=== PATIENT | male | born 1975 | race Caucasian/White ===

== ENCOUNTER 2020-11-22 13:32 | Emergency (ER) | payer OTHER, MEDICAID, SELFPAY ==
[2020-11-22 13:33] VITALS: BP 133/86; PULSE 66; RESP 16; TEMP 36.5; BMI 31.4
--- NOTE | 2020-11-22 14:02 | EX.ED.GENINJ ---
HPI History of Present Illness Chief Complaint: Laceration Informant: patient Narrative Narrative: Patient presents to the emergency department for injury to right index finger. He states that he got it caught in the garage. He states that it was bleeding heavily and was spraying everywhere. On arrival to the ED bleeding has been controlled. He denies any significant pain with moving all joints of the finger and hand. He is not on any blood thinning medications. Denies any other injury. No loss of sensation to the finger or hand. Patient is not sure when his last tetanus shot was. [facility] Medical History (Updated 11/22/20 @ 14:30 by Katie Leon) Cyst of left kidney Cyst of right kidney Home Medications buspirone 5 mg PO DAILY 04/20/14 [History Last Taken Unknown] citalopram 20 mg PO DAILY 04/20/14 [History Last Taken Unknown] Allergy/AdvReac Type Severity Reaction Status Date / Time No Known Allergies Allergy Verified 11/22/20 13:33 Social History Smoking Status: Never smoker ROS ROS ED Constitutional Constitutional ED: Denies chills or fever(s) ENT ENT ED: Denies rhinorrhea Cardiovascular Cardiovascular: Denies chest pain Respiratory/Chest Respiratory/Chest: Denies cough or dyspnea Gastrointestinal Gastrointestinal: Denies abdominal pain, nausea or vomiting Musculoskeletal Musculoskeletal: Denies back pain or neck pain Integumentary Reports other Details: Laceration Neurologic Neurologic: Denies headache(s) EXAM Physical Exam Const Vital Signs: 11/22/20 13:33 Temperature 97.7 F L Temperature Source Temporal Pulse Rate 66 Respiratory Rate 16 Blood Pressure 133/86 H Blood Pressure Mean 101 Positive well nourished and well developed General Appearance ED: well developed and NAD HEENT Reports normocephalic and head/scalp atraumatic Eyes PERRL and EOMs intact bilaterally Neck supple Resp normal respiratory effort Cardio regular rate and regular rhythm Extremity normal to inspection Extremity Narrative: Full range of motion of hands and digits on the right hand. Brisk capillary refill. General Extremety ED: Negative for edema or tenderness General Extremity: Negative for edema Neuro no sensory deficits noted Sensorium / Orientation: alert Motor Exam: strength 5/5 throughout Psych mental status grossly normal Skin Skin Narrative: Avulsionlaceration injury to right lateral index finger. No foreign body appreciated. No active bleeding. No underlying tendon damage noted. PROC Procedures Lacerations finger: Length: 0.51 in Depth: Skin Shape: Linear Prep: Sterile Conditions and Shure-Clens Laceration repair: Wound explored Irrigated (ml): 50 Number of Sutures/[place]: 2 Suture Information: Ethilon, Simple and 5-0 Comment: Wound well approximated. Patient tolerated well. MDM MDM MDM Narrative Medical decision making narrative: Patient presents to the emergency department for injury to right index finger. Patient has full range of motion. Low concern for fracture. Laceration is requiring repair. He is updated on his tetanus vaccine. Patient's laceration is repaired. He tolerated this well. It was dressed with antibiotic ointment. Return precautions are reviewed with him including evidence of infection. Sutures will need to be removed in 7 to 10 days. Patient understands and is agreeable this plan. Discharged home in stable condition. All questions answered. Discharge Plan Triage Chief Complaint: Laceration ED Provider: Patric aNgy Dx/Rx/DC Orders Clinical Impression: Laceration of finger Instructions: ED Laceration: All Closures Prescriptions: No Action buspirone 5 MG tablet 5 mg PO DAILY RF: 0 citalopram 20 MG tablet 20 mg PO DAILY RF: 0 Primary Care Provider: Justyna Cooley Referrals: Justyna Cooley MD [Primary Care Provider] - 7 Days for suture removal Disposition Disposition: Home, self care Discharge Date/Time: 11/22/20 15:15
[2020-11-22] MEDS: Diphth,Pertuss(Acell),Tet Vac 0.5 ML Vial IM (14:25)
[2020-11-22] MEDS: Lidocaine 1% (20 ml mdv) 20 ML Vial 3 ML INFILT (14:27)
== END 2020-11-22 15:15 | disposition home or self-care (01) ==
LOC: ED 14:23
PROVIDERS: Emergency Provider Emergency Medicine; PCP Internal Medicine
DX: S61.210A Laceration without foreign body of right index finger without damage to nail, initial encounter (principal); X58.XXXA Exposure to other specified factors, initial encounter
CPT/HCPCS: 12001; 90715; 96372; 99282

== ENCOUNTER → 2022-04-11 | Outpatient (CLI) | payer OTHER, MEDICAID, SELFPAY ==
[2022-04-11 11:24] LABS: Absolute Lymphocyte Count 2.16 X10^3/uL (0.83-4.51); Basophil# 0.03 X10^3/uL; Basophil% 0.4 % (0-1); Eosinophil# 0.14 X10^3/uL; Hematocrit 43.9 % (40-54); Hemoglobin 14.7 g/dL (13.0-16.5); Lymphocyte # 2.16 X10^3/ul (0.83-4.51); Lymphocyte % 31.5 % (19-41); Mean Corp Hgb Conc 33.5 g/dL (32-36); Mean Corpuscular Hgb 29.6 pg (27.0-32.0); Mean Corpuscular Volume 88.3 fL (80-94); Mean Platelet Vol. 11.7 fl (6.2-12.0); Monocyte# 0.54 X10^3/uL; Monocyte% 7.9 % (0-10); NRBC Flagged by Analyzer 0 % (0-5); Neutrophil # 3.96 X10^3/uL (2.7-7.7); Neutrophil % 57.8 % (47-70); Platelet Count 236 K/mm3 (150-450); RBC Distribution Width CV 12.7 % (11.6-14.6); RBC Distribution Width SD 41.3 fl (35.1-43.9); Red Blood Count 4.97 M/mm3 (4.6-6.2); White Blood Count 6.9 K/mm3 (4.4-11.0)
[2022-04-11 11:55] LABS: Vitamin D,25 Hydroxy 31.3 ng/mL
[2022-04-11 12:09] LABS: ALB/GLOB Ratio 1.1 RATIO (0.9-2.4); AST(SGOT) 21 U/L (15-37); Alanine Aminotransfer ALT/SGPT 36 U/L (16-61); Albumin, Serum 3.9 g/dL (3.2-5.0); Alkaline Phosphatase 37 U/L (45-117); Anion Gap 5 (5-15); BUN 16 mg/dL (7-18); BUN/Creat Ratio 15.8 RATIO (10-20); Calcium,Total 9.4 mg/dL (8.5-10.1); Chloride 106 mmol/L (98-107); Cholesterol 256 mg/dL (200); Creatinine, Serum 1.01 mg/dL (0.70-1.30); EST Glomerular Filtration Rate 84 mL/min (>60); Est Glom Filt Rate - Afr Amer 101 mL/min (>60); Globulin 3.7 g/dL (2.2-4.2); Glucose 106 mg/dL (74-106); High Density Lipoprotein 51 mg/dL; PSA,Total - Annual Screen 1.05 ng/mL (0.00-4.00); Potassium 4.3 mmol/L (3.5-5.1); Protein, Total 7.6 g/dL (6.4-8.2); Sodium Level 141 mmol/L (136-145); T4 Free Direct 0.72 ng/dL (0.76-1.46); Thyroid Stim Hormone (TSH) 0.59 uIU/mL (0.358-3.74); Triglycerides 352 mg/dL; Very Low Density Lipoprotein 70 mg/dL (5-40)
== END | disposition home or self-care (01) ==
LOC: LAB 10:51
PROVIDERS: PCP Internal Medicine; Referring Provider Internal Medicine; Visit Provider Internal Medicine
DX: N28.1 Cyst of kidney, acquired (principal); E78.5 Hyperlipidemia, unspecified; F32.9 Major depressive disorder, single episode, unspecified; J30.2 Other seasonal allergic rhinitis; F41.9 Anxiety disorder, unspecified
CPT/HCPCS: 84153; 36415; 80053; 80061; 82306; 84439; 84443; 84481; 85025; G0103

== ENCOUNTER → 2022-04-18 | Outpatient (CLI) | payer OTHER, MEDICAID, SELFPAY ==
--- NOTE | 2022-04-18 09:51 | US_ITS ---
EXAM: US RETROPERITONEAL LIMITED, RENAL CLINICAL INDICATION: History renal cysts, enlarging. Serial f/u -- Previous US done US/[facility] -- HX OF KIDNEY STONES TECHNIQUE: Limited grayscale and color Doppler sonographic evaluation of the retroperitoneum was performed. This report was created using [employer] report generation technology. COMPARISON: 09/23/2014. FINDINGS: RIGHT KIDNEY: Possible tiny nonobstructing calcifications right kidney. Tiny cyst measuring 1.4 cm right kidney. There may be 2 tiny nonobstructing calcifications in the right kidney. No shadowing calculus. No perinephric collection is demonstrated. The right kidney measures 11.3 cm in length. LEFT KIDNEY: Cyst measuring 7.2 x 8 x 7.1 cm lower pole left kidney. Previously it measured approximately 8 cm. No hydronephrosis. No shadowing calculus. No perinephric collection is demonstrated. The left kidney measures 12.0 cm in length. OTHER FINDINGS: Prostate is enlarged measuring 5.5 cm. US/Kidney and Bladder IMPRESSION: 1. Stable cyst measuring up to 8 cm left kidney. Tiny cyst right kidney. No follow-up imaging necessary. 2. Possible tiny nonobstructing calcifications right kidney. 3. Prostate is enlarged measuring 5.5 cm. Electronically Signed: Jon Flores MD at 7:23 EST ,
== END | disposition home or self-care (01) ==
LOC: US 09:50
PROVIDERS: PCP Internal Medicine; Referring Provider Internal Medicine; Visit Provider Internal Medicine
DX: N28.1 Cyst of kidney, acquired (principal)
CPT/HCPCS: 76770

== ENCOUNTER → 2022-06-27 | Outpatient (CLI) | payer MEDICAID, SELFPAY ==
--- NOTE | 2022-06-27 15:28 | US_ITS ---
INDICATION: Recent kidney stone EXAMINATION: Ultrasound US Kidney(s) complete (eg, kidneys and bladder) TECHNIQUE: Jones scale and color doppler images were obtained of the kidneys. COMPARISON: April 18, 2022 FINDINGS: RIGHT KIDNEY: 11.2 x 5.8 x 5.5 cm. There is no hydronephrosis. Nonobstructing calculus measuring 6 x 4 x 4 mm. There is a cyst measuring 1.1 x 1.1 x 1 cm LEFT KIDNEY: 11.1 x 5.2 x 6.4 cm. There is no hydronephrosis. There are 2 cysts measuring 1.5 x 1.6 x 1.2 cm and 7.6 x 7.7 x 7.1 cm. URINARY BLADDER: No acute abnormality. US/Kidney and Bladder IMPRESSION: Nonobstructing right renal calculus. Bilateral renal cysts Electronically Signed: Yevgeniy Sullivan MD at 16:34 EST ,
== END | disposition home or self-care (01) ==
LOC: US 15:27
PROVIDERS: PCP Internal Medicine; Visit Provider Internal Medicine
DX: N28.1 Cyst of kidney, acquired (principal); N20.0 Calculus of kidney
CPT/HCPCS: 76770

== ENCOUNTER → 2022-10-10 | Outpatient (CLI) | payer OTHER, SELFPAY ==
[2022-10-10 11:22] LABS: Bacteria 0 SEEN /hpf (None Seen); Mucous, Urine 0 SEEN /hpf (<or=2+); Squamous Epithelial Cells - UA 0 SEEN /hpf (0-5)
[2022-10-10 11:42] LABS: Absolute Lymphocyte Count 2.16 X10^3/uL (0.83-4.51); Absolute Neutrophil Count 4.2 X10^3/uL (2.0-7.7); Basophil# 0.03 X10^3/uL; Basophil% 0.4 % (0-1); Eosinophil# 0.14 X10^3/uL; Hematocrit 44.8 % (40-54); Hemoglobin 14.5 g/dL (13.0-16.5); Lymphocyte # 2.16 X10^3/ul (0.83-4.51); Lymphocyte % 30.7 % (19-41); Mean Corp Hgb Conc 32.4 g/dL (32-36); Mean Corpuscular Hgb 29.1 pg (27.0-32.0); Mean Platelet Vol. 11.6 fl (6.2-12.0); Monocyte# 0.47 X10^3/uL; Monocyte% 6.7 % (0-10); NRBC Flagged by Analyzer 0 % (0-5); Neutrophil % 59.8 % (47-70); Platelet Count 237 K/mm3 (150-450); RBC Distribution Width CV 13.1 % (11.6-14.6); RBC Distribution Width SD 42.8 fl (35.1-43.9); Red Blood Count 4.98 M/mm3 (4.6-6.2)
[2022-10-10 12:12] LABS: Color, Urine Yellow (Yellow); Glucose, Dipstick Normal (Normal); Ketone-Dipstick Negative (Negative); Leukocyte Esterase-Dipstick 25 /ul (Negative); Nitrite-Dipstick Negative (Negative); Occult Blood-Urine 250 /ul (Negative); Protein-Dipstick 15 mg/dl (Negative); Specific Gravity, Urine 1.015 (1.002-1.030); Urine Bilirubin Dipstick Negative (Negative); Urine Clarity Sl. Cloudy (Clear); Urine Urobilinogen Normal (Normal)
[2022-10-10 12:15] LABS: AST(SGOT) 23 U/L (15-37); Alanine Aminotransfer ALT/SGPT 44 U/L (16-61); Albumin, Serum 3.8 g/dL (3.2-5.0); Alkaline Phosphatase 42 U/L (45-117); Anion Gap 8 (5-15); BUN 15 mg/dL (7-18); BUN/Creat Ratio 13.6 RATIO (10-20); Calcium,Total 9.3 mg/dL (8.5-10.1); Chloride 103 mmol/L (98-107); Cholesterol 293 mg/dL (200); EST Glomerular Filtration Rate 76 mL/min (>60); Est Glom Filt Rate - Afr Amer 92 mL/min (>60); Globulin 3.8 g/dL (2.2-4.2); Glucose 108 mg/dL (74-106); High Density Lipoprotein 43 mg/dL; Protein, Total 7.6 g/dL (6.4-8.2); Sodium Level 141 mmol/L (136-145); Triglycerides 670 mg/dL
[2022-10-10 12:18] LABS: Red Blood Cells-Urine 25-50 SEEN /hpf (0-5); White Blood Cells 0-5 SEEN /hpf (0-5)
== END | disposition home or self-care (01) ==
LOC: LAB 11:17
PROVIDERS: PCP Internal Medicine; Referring Provider Internal Medicine; Visit Provider Internal Medicine
DX: R10.31 Right lower quadrant pain (principal); N20.0 Calculus of kidney; E78.5 Hyperlipidemia, unspecified; R79.89 Other specified abnormal findings of blood chemistry
CPT/HCPCS: 36415; 80053; 80061; 81001; 82306; 85025; 87086; 87088

== ENCOUNTER → 2022-10-11 | Outpatient (CLI) | payer OTHER, SELFPAY ==
--- NOTE | 2022-10-11 12:02 | CT_ITS ---
STUDY: CT ABDOMEN AND PELVIS WITH CONTRAST REASON FOR EXAM: Male, 47 years old. Flank pain, RLQ pain, known right kidney stone-pain has been travelling lower. RADIATION DOSAGE (If Supplied By Facility): CTDIvol = ( 17.37 ) mGy, DLP = ( 1024.51 ) mGycm TECHNIQUE: Transaxial images were obtained from the dome of the diaphragm to the symphysis pubis with oral contrast. Oral and amp; IV Gastrografin and amp; 100mL Isovue-300 was administered. Sagittal and coronal images were reconstructed. Individualized dose optimization techniques were used for this CT. COMPARISON: Comparison is made with prior ultrasound of the kidneys dated June 27, 2022. FINDINGS: The visualized lung bases are unremarkable. Mild coronary artery calcification. There is decreased attenuation of the liver consistent with steatosis. There are surgical clips in the gallbladder fossa consistent with a prior cholecystectomy. Normal spleen. Normal pancreas. Normal bilateral adrenal glands. There is a moderate degree of right-sided hydronephrosis and hydroureter due to a 4.5 mm calculus in the distal portion of the right ureter. There is a 1.6 cm cyst in the lateral aspect of the left kidney as well as a 6.7 cm x 7.5 cm cyst in the lower pole region of the left kidney. There is a small hiatal hernia. Normal small intestine. Normal colon. The appendix is visualized and appears normal. There is scattered atherosclerotic calcification of the abdominal aorta, without a demonstrated aneurysm. Normal inferior vena cava. Normal retroperitoneum. Normal urinary bladder. There are prostatic calcifications. There is a small umbilical hernia containing fat. Small left inguinal hernias containing fat. This space narrowing and disc degeneration at the L5-S1 level. CT/Abdomen/Pelvis WITH Contrast IMPRESSION: 4.5 mm calculus in the distal portion of the right ureter causing moderate degree of right hydronephrosis and hydroureter. Left renal cysts. Status post cholecystectomy. Fatty infiltration of the liver. Electronically Signed: Sanya Aguirre MD at 14:28 EDT ,
== END | disposition home or self-care (01) ==
PROVIDERS: PCP Internal Medicine; Referring Provider Internal Medicine; Visit Provider Internal Medicine
DX: R10.31 Right lower quadrant pain (principal)
CPT/HCPCS: 74177; Q9967

== ENCOUNTER → 2023-08-14 | Outpatient (CLI) | payer MEDICAID, SELFPAY ==
--- OUTSIDE RECORDS SUMMARY | 2023-08-14 06:23 | XMS RPT_ITS | CCD ---
Author Name Unknown Address [email or web address] [place] [address] Organization [facility] Care Team Providers Care Grounds Caretaker Name Role Phone Tourlas, Yvon Unavailable Unavailabl e Tourlas, Yvon Unavailable Unavailabl e Amber Chavez Unavailable Unavailable Magda, Yvon Unavailable Unavailabl e Antoni Oh S Unavailable Unavailable Unavailable RYAN HAMLIN Unavaila BILLY Guillermo Primary Care Unavailable Medications Completed/Discontinued Medications Medication Drug Class(es) Dates Sig (Normalized) Sig (Original) betamethasone 0.5 mg/ml / clotrimazole 10 mg/ml topical cream (4 sources) Azole Antifungal, Corticosteroid Start: 03-19-2019 Lotrisone 1-0.05 % External Cream APPLY AND RUB IN A THIN FILM TO AFFECTED AREAS TWICE DAILY.(AM AND PM). Refills: 0 Khoi Mans Start : 19-Mar-2019 Active 15 GM Tube 24 hr buPROPion hydrochloride 300 mg extended release oral tablet (6 sources) Aminoketone Start: 03-19-2019 take 1 tablet by mouth once daily buPROPion HCl ER (XL) 300 MG Oral Tablet Extended Release 24 Hour TAKE 1 TABLET DAILY. Quantity: 90 Refills: 1 Ordered: 19-Feb-2021 Adriano HA, MPH, Antoni Finn Start : 19-Mar-2019 Active docosahexaenoic acid 120 mg / eicosapentaenoic acid 180 mg oral capsule (1 source) Start: 09-02-2019 take 1 capsule by mouth once daily [place]-3 Fish Oil 1000 MG Oral Capsule TAKE 1 CAPSULE Daily Quantity: 0 Refills: 0 Ordered: 02-Sep-2019 DO Start : 02-Sep-2019 Active escitalopram 20 mg oral tablet (6 sources) Serotonin Reuptake Inhibitor Start: 03-19-2019 take 1 tablet by mouth once daily Escitalopram Oxalate 20 MG Oral Tablet TAKE 1 TABLET DAILY. Quantity: 90 Refills: 1 Ordered: 19-Feb-2021 Adriano HA, MPH, Antoni Finn Start : 19-Mar-2019 Active lactobacillus acidophilus [id number] unt oral capsule (1 source) Start: 09-02-2019 Acidophilus Oral Capsule TAKE DIRECTED. Quantity: 0 Refills: 0 Ordered: 02-Sep-2019 DO Start : 02-Sep-2019 Active meloxicam 15 mg oral tablet (6 sources) Nonsteroidal Anti-inflammatory Drug Start: 03-19-2019 take 1 tablet by mouth once daily as needed for pain Meloxicam 15 MG Oral Tablet TAKE 1 TABLET DAILY NEEDED FOR PAIN. TAKE WITH FOOD AND 8 OZ OF WATER. Quantity: 30 Refills: 2 Ordered: 19-Feb-2021 Adriano HA, MPH, Antoni Finn Start : 19-Mar-2019 Active Multiple Vitamins Oral Tablet (1 source) Start: 09-02-2019 take 1 tablet by mouth once daily Multiple Vitamins Oral Tablet TAKE 1 TABLET DAILY. Quantity: 0 Refills: 0 Ordered: 02-Sep-2019 DO Start : 02-Sep-2019 Active Turmeric extract (1 source) Start: 09-02-2019 take 1 capsule by mouth once daily Turmeric 400 MG Oral Capsule TAKE 1 CAPSULE Daily Quantity: 0 Refills: 0 Ordered: 02-Sep-2019 DO Start : 02-Sep-2019 Active vitamin b12 0.5 mg oral tablet (1 source) Vitamin B12 Start: 09-02-2019 Vitamin B12 500 MCG TABS Take 1 tablet daily Quantity: 0 Refills: 0 Ordered: 02-Sep-2019 DO Start : 02-Sep-2019 Active Problems Active Problems Problem Classification Problem Date Documented Date Episodic/Chronic Anxiety disorders (6 sources) Generalized anxiety disorder; Translations: [Generalized anxiety disorder] Chronic Biliary tract disease (10 sources) Biliary calculus; Translations: [Calculus of gallbladder with cholecystitis] Episodic Calculus of urinary tract (6 sources) History of calculus of kidney; Translations: [Personal history of urinary calculi] Episodic Diabetes mellitus without complication (6 sources) Prediabetes; Translations: [Other abnormal glucose] Episodic Disorders of lipid metabolism (12 sources) Hypertriglyceridemia; Translations: [Dyslipidemia] Chronic Fracture of upper limb (1 source) Nondisplaced fracture of distal phalanx of left little finger, initial encounter for open fracture; Translations: [Open nondisplaced fracture of distal phalanx of left little finger, initial encounter] Onset: 03-10-2022 Episodic Genitourinary symptoms and ill-defined conditions (6 sources) Nocturia; Translations: [Nocturia] Episodic Malaise and fatigue (1 source) Fatigue; Translations: [Other malaise and fatigue] Episodic Mood disorders (6 sources) Major depressive disorder; Translations: [Major depressive affective disorder, single episode, unspecified] Chronic Osteoarthritis (1 source) Osteoarthritis of right knee joint; Translations: [Osteoarthrosis, localized, primary, lower leg] Chronic Other diseases of kidney and ureters (6 sources) Acquired complex renal cyst; Translations: [Cyst of kidney, acquired] Episodic Other non-traumatic joint disorders (2 sources) Multiple joint pain; Translations: [Pain in joint, multiple sites] Episodic Other non-traumatic joint disorders (6 sources) Pain in elbow; Translations: [Pain in joint, upper arm] Episodic Other non-traumatic joint disorders (5 sources) Knee pain; Translations: [Acute pain of right knee] Episodic Other non-traumatic joint disorders (1 source) Pain in right knee; Translations: [Acute pain of right knee] Episodic Other nutritional; endocrine; and metabolic disorders (1 source) Excessive thirst; Translations: [Polydipsia] Episodic Other nutritional; endocrine; and metabolic disorders (1 source) Excessive eating - polyphagia; Translations: [Polyphagia] Episodic Other screening for suspected conditions (not mental disorders or infectious disease) (1 source) Patient encounter status; Translations: [Special screening for malignant neoplasms of colon] Episodic Other skin disorders (3 sources) Eruption; Translations: [Rash and other nonspecific skin eruption] Episodic Residual codes; unclassified (6 sources) Chronic back pain ; Translations: [Backache, unspecified] Episodic Residual codes; unclassified (6 sources) Unprotected sexual intercourse; Translations: [High-risk sexual behavior] Episodic Residual codes; unclassified (1 source) Influenza-like symptoms; Translations: [Other general symptoms] Episodic Spondylosis; intervertebral disc disorders; other back problems (6 sources) Lumbar spondylosis; Translations: [Lumbosacral spondylosis without myelopathy] Chronic Past or Other Problems Problem Classification Problem Date Documented Da te Episodic/Chronic Osteoarthritis (5 sources) Osteoarthritis of right knee joint; Translations: [Primary osteoarthritis of right knee] NEGATED: Highlighted row has not occurred!Residual codes; unclassified (6 sources) Disease Episodic Results Test Name Value Interpretation Reference Range Facil ity Vital Signs Date Time Vital Sign Value Performing Clinician Laura rodriguez 03-19-2019 11:49-0400 BMI (Body Mass Index) 32.37 kg/m2 [facility] Work Phone: 03-19-2019 11:49-0400 BSA (Body Surface Area) 2.2 m2 [facility] Work Phone: 03-19-2019 11:49-0400 Height 178 cm [facility] Work Phone: 03-19-2019 11:46-0400 Body weight 102.56 kg [facility] Work Phone: 03-19-2019 11:46-0400 BP Diastolic 70 mm[Hg] Yvon [facility] Work Phone: 03-19-2019 11:46-0400 BP Systolic 118 mm[Hg] Yvon [facility] Work Phone: 03-19-2019 11:46-0400 Pulse (Heart Rate) 63 /min [facility]: Encounters Encounter Date Encounter Type Care Provider Facility Start: 03-10-2022 End: 03-10-2022 Emergency department patient visit RYAN HAMLIN Facility:[facility] Start: 02-19-2021 AUDIT Antoni snowden Work Phone: [facility] Work Phone: Start: 03-25-2019 Patient encounter procedure Amber Chavez [facility] Work Phone: Start: 03-19-2019 Patient encounter procedure Amber Edyekta [facility] Work Phone: Start: 10-01-2018 Patient encounter procedure Facility:[id number] Start: 07-09-2018 Patient encounter procedure Facility:[id number] Start: 01-11-2018 Patient encounter procedure Facility:[id number] Start: 12-12-2017 Patient encounter procedure Facility:[id number] Procedures Date Procedure Procedure Detail Performing Clinician Start: 07-16-2020 Follow-up visit Start: 09-02-2019 Follow-up visit Start: 03-19-2019 Acute hepatitis panel K onstantinos Tourlas Start: 03-19-2019 Antibody hiv-1 Konstant inos Tourlas Start: 03-19-2019 Iadna chlamydia trac homatis amplified probe tq Yvon Tourlas Start: 03-19-2019 MISCELLANEOUS TEST Kons tantinos Tourlas Excision of cyst Konstantino s Tourlas Laparoscopic cholecystectomy Amber Chavez Plan of Treatment Date Care Activity Detail Author Start: 03-08-2021 EPV, Provider: Antoni Oh, Status: Pen, Time: 12:40 PM EPV, Provider: Antoni Oh, Status: Pen, Time: 12:40 PM [facility] Work Phone: Immunizations Immunization Date Immunization Notes Care Provider Melissa awan 11-13-2016 tetanus toxoid, reduced diphtheria toxoid, and acellular pertussis vaccine, adsorbed Yvon Magda [facility] Work Phone: Payers Date Payer Category Payer Unknown [id number] 1975 Unknown [id number] 2.. [id number] 1975 Unknown [id number] 2.. [id number] 1973 Unknown [id number] 2.. [id number] 1973 Unknown [id number] 2. [id number] 1973 Unknown [id number] 2.16. [id number] Unknown [id number] Unknown Social History Date Type Detail Facility No advance directives No advance directiv es [facility] Work Phone: NEGATED: Highlighted row - - [facility] Phone: Functional Status Date Assessment Result Facility NEGATED: Highlighted row Functional performance Functional status health issues are not documented Disease [facility] Phone: Mental Status Date Assessment Result Facility NEGATED: Highlighted row Cognitive function [Interpretation] Cognitive status health issues are not documented Disease [facility] Phone: Summary Purpose Family History No Family History Records Found Mother Name Dates Details Family history of Rheumatoid arteritis(714.2, M05.20) Status:Active Father Name Dates Details Family history of depression (V17.0, Z81.8) Status:Active Family history of kidney sto ne(V18.69, Z84.1) Status:Active Mother Name Dates Details Family history of Rheumatoid arteritis(714.2, M05.20) Status:Active Father Name Dates Details Family history of depression (V17.0, Z81.8) Status:Active Family history of kidney sto ne(V18.69, Z84.1) Status:Active Mother Name Dates Details Family history of Rheumatoid arteritis(714.2, M05.20) Status:Active Father Name Dates Details Family history of depression (V17.0, Z81.8) Status:Active Family history of kidney sto ne(V18.69, Z84.1) Status:Active Mother Name Dates Details Family history of Rheumatoid arteritis(714.2, M05.20) Status:Active Father Name Dates Details Family history of depression (V17.0, Z81.8) Status:Active Family history of kidney sto ne(V18.69, Z84.1) Status:Active Mother Name Dates Details Family history of Rheumatoid arteritis(714.2, M05.20) Status:Active Father Name Dates Details Family history of depression (V17.0, Z81.8) Status:Active Family history of kidney sto ne(V18.69, Z84.1) Status:Active Unknown Family Member Name Dates Details Rheumatoid arteritis: Mother Status:Active Family history of depression : Father(V17.0, Z81.8) Status:Active Family history of kidney sto ne: Father(V18.69, Z84.1) Status:Active Advance Directives No Advanced Directives Records FoundNo Advanced Directives Records FoundNo Advanced Directives Records FoundNo Advanced Directives Records FoundNo Advanced Directives Records Found Additional Source Comments (unrecognized sect ion and content) No Status Records FoundNo Status Records FoundNo Status Records FoundNo Status Records FoundNo Status Records Found INFORMATION SOURCE (unrecogn ized section and content) DATE CREATED AUTHOR AUTHOR'S ORGANIZ ATION 03/16/2019 [facility] DATE CREATED AUTHOR AUTHOR'S ORGANIZ ATION 09/05/2019 [facility] DATE CREATED AUTHOR AUTHOR'S ORGANIZ ATION 07/17/2020 [employer] DATE CREATED AUTHOR AUTHOR'S ORGANIZ ATION 03/14/2022 [facility] FOR RECORDS PERTAINING TO PATIENTS WHO ARE OR HAVE BEEN ENROLLED IN A CHEMICAL DEPENDENCY/SUBSTANCEABUSE PROGRAM, SOME INFORMATION MAY BE OMITTED. This clinical summary was aggregated from multiple sources. Caution should be exercised in using it in the provision of clinical care. This summary normalizes information from multiple sources, and as a consequence, information in this document may materially change the coding, format and clinical context of patient data. In addition, data may be omitted in some cases. CLINICAL DECISIONS SHOULD BE BASED ON THE PRIMARY CLINICAL RECORDS. [facility] [employer] [facility]. provides no warranty or guarantee of the accuracy or completeness of information in this document.
[2023-08-14 08:11] LABS: Absolute Lymphocyte Count 2.32 X10^3/uL (0.83-4.51); Absolute Neutrophil Count 3.7 X10^3/uL (2.0-7.7); Basophil# 0.04 X10^3/uL; Basophil% 0.6 % (0-1); Eosinophil# 0.23 X10^3/uL; Eosinophils% 3.4 % (0-5); Hematocrit 43.2 % (40-54); Lymphocyte # 2.32 X10^3/ul (0.83-4.51); Lymphocyte % 34.2 % (19-41); Mean Corp Hgb Conc 32.4 g/dL (32-36); Mean Corpuscular Hgb 28.7 pg (27.0-32.0); Mean Corpuscular Volume 88.5 fL (80-94); Monocyte% 7.4 % (0-10); NRBC Flagged by Analyzer 0 % (0-5); Neutrophil # 3.68 X10^3/uL (2.7-7.7); Neutrophil % 54.1 % (47-70); Platelet Count 231 K/mm3 (150-450); RBC Distribution Width CV 12.8 % (11.6-14.6); RBC Distribution Width SD 41.6 fl (35.1-43.9); Red Blood Count 4.88 M/mm3 (4.6-6.2); White Blood Count 6.8 K/mm3 (4.4-11.0)
[2023-08-14 08:38] LABS: Insulin 13.8 mU/L (2.6-37.6); Vitamin D,25 Hydroxy 28.5 ng/mL
[2023-08-14 08:49] LABS: AST(SGOT) 28 U/L (15-37); Alanine Aminotransfer ALT/SGPT 47 U/L (16-61); Albumin, Serum 3.7 g/dL (3.2-5.0); Alkaline Phosphatase 41 U/L (45-117); Anion Gap 4 (5-15); BUN 16 mg/dL (7-18); BUN/Creat Ratio 14.5 RATIO (10-20); Calcium,Total 9.5 mg/dL (8.5-10.1); Chloride 107 mmol/L (98-107); Cholesterol 275 mg/dL (200); EST Glomerular Filtration Rate 75 mL/min (>60); Est Glom Filt Rate - Afr Amer 91 mL/min (>60); Free T3 3.3 pg/mL (2.18-3.98); Globulin 3.8 g/dL (2.2-4.2); Glucose 117 mg/dL (74-106); High Density Lipoprotein 44 mg/dL; PSA,Total - Annual Screen 1.23 ng/mL (0.00-4.00); Potassium 3.7 mmol/L (3.5-5.1); Protein, Total 7.5 g/dL (6.4-8.2); Sodium Level 140 mmol/L (136-145); T4 Free Direct 0.78 ng/dL (0.76-1.46); Thyroid Stim Hormone (TSH) 0.85 uIU/mL (0.358-3.74); Triglycerides 495 mg/dL
[2023-08-14 09:43] LABS: Hemoglobin A1c 6.3 % (3.8-5.6)
== END | disposition home or self-care (01) ==
PROVIDERS: PCP Internal Medicine; Referring Provider Internal Medicine; Visit Provider Internal Medicine
DX: E78.5 Hyperlipidemia, unspecified (principal); N20.0 Calculus of kidney; R79.89 Other specified abnormal findings of blood chemistry; R03.0 Elevated blood-pressure reading, without diagnosis of hypertension; Z13.220 Encounter for screening for lipoid disorders; E55.9 Vitamin D deficiency, unspecified; Z12.5 Encounter for screening for malignant neoplasm of prostate
CPT/HCPCS: 84153; 36415; 80053; 80061; 82306; 83036; 83525; 83735; 84439; 84443; 84481; 85025; G0103

== ENCOUNTER → 2024-07-01 | Outpatient (CLI) | payer OTHER, SELFPAY ==
[2024-07-01 12:33] LABS: Absolute Lymphocyte Count 2.71 X10^3/uL (0.83-4.51); Absolute Neutrophil Count 5.4 X10^3/uL (2.0-7.7); Basophil# 0.03 X10^3/uL; Basophil% 0.3 % (0-1); Eosinophil# 0.16 X10^3/uL; Eosinophils% 1.8 % (0-5); Hematocrit 44.6 % (40-54); Lymphocyte # 2.71 X10^3/ul (0.83-4.51); Lymphocyte % 30.5 % (19-41); Mean Corp Hgb Conc 33.6 g/dL (32-36); Mean Corpuscular Hgb 29.4 pg (27.0-32.0); Mean Corpuscular Volume 87.5 fL (80-94); Mean Platelet Vol. 11.8 fl (6.2-12.0); Monocyte# 0.54 X10^3/uL; Monocyte% 6.1 % (0-10); NRBC Flagged by Analyzer 0 % (0-5); Neutrophil # 5.42 X10^3/uL (2.7-7.7); Platelet Count 242 K/mm3 (150-450); RBC Distribution Width CV 12.7 % (11.6-14.6); RBC Distribution Width SD 40.6 fl (35.1-43.9); White Blood Count 8.9 K/mm3 (4.4-11.0)
[2024-07-01 13:12] LABS: AST(SGOT) 27 U/L (15-37); Alanine Aminotransfer ALT/SGPT 53 U/L (16-61); Albumin, Serum 3.8 g/dL (3.2-5.0); Alkaline Phosphatase 45 U/L (45-117); Anion Gap 2 (5-15); BUN 11 mg/dL (7-18); BUN/Creat Ratio 9.9 RATIO (10-20); Calcium,Total 9.2 mg/dL (8.5-10.1); Chloride 104 mmol/L (98-107); Cholesterol 269 mg/dL (200); Creatinine, Serum 1.11 mg/dL (0.70-1.30); EST Glomerular Filtration Rate 74 mL/min (>60); Est Glom Filt Rate - Afr Amer 90 mL/min (>60); Globulin 3.7 g/dL (2.2-4.2); Glucose 107 mg/dL (74-106); High Density Lipoprotein 51 mg/dL; Protein, Total 7.5 g/dL (6.4-8.2); Sodium Level 139 mmol/L (136-145); Triglycerides 553 mg/dL
[2024-07-01 13:50] LABS: Vitamin D,25 Hydroxy 35.5 ng/mL
[2024-07-01 14:07] LABS: Hemoglobin A1c 6.2 % (3.8-5.6)
== END | disposition home or self-care (01) ==
LOC: LAB 12:23
PROVIDERS: PCP Internal Medicine; Referring Provider Internal Medicine; Visit Provider Internal Medicine
DX: R79.89 Other specified abnormal findings of blood chemistry (principal); E78.5 Hyperlipidemia, unspecified; R03.0 Elevated blood-pressure reading, without diagnosis of hypertension; R73.01 Impaired fasting glucose; E55.9 Vitamin D deficiency, unspecified; Z13.220 Encounter for screening for lipoid disorders
CPT/HCPCS: 36415; 80053; 80061; 82306; 83036; 85025

== ENCOUNTER → 2024-12-11 | Outpatient (CLI) | payer OTHER, SELFPAY ==
--- NOTE | 2024-12-11 09:50 | RAD_ITS ---
PROCEDURE: CERV SPINE 2 OR 3 VIEWS 12/11/2024 REASON FOR EXAM: CERVICAL RADICULOPATHY TECHNIQUE: CERV SPINE 2 OR 3 VIEWS COMPARISON: None. FINDINGS: No evidence of acute fracture or dislocation. Mild to moderate discogenic degenerative changes of visualized spine. Normal alignment. RAD/Cerv Spine 2 or 3 Views IMPRESSION: Spondylosis. Disclaimer: Reading Location: [place] [address]
--- NOTE | 2024-12-11 09:50 | RAD_ITS ---
PROCEDURE: CERV SPINE 2 OR 3 VIEWS 12/11/2024 REASON FOR EXAM: CERVICAL RADICULOPATHY TECHNIQUE: CERV SPINE 2 OR 3 VIEWS COMPARISON: None. FINDINGS: No evidence of acute fracture or dislocation. Mild to moderate discogenic degenerative changes of visualized spine. Normal alignment. RAD/Cerv Spine 2 or 3 Views IMPRESSION: Spondylosis. Disclaimer: Reading Location: [place] [address]
== END | disposition home or self-care (01) ==
LOC: RAD 09:43
PROVIDERS: PCP Internal Medicine; Referring Provider Internal Medicine; Visit Provider Internal Medicine
DX: M54.12 Radiculopathy, cervical region (principal)
CPT/HCPCS: 72040

== ENCOUNTER → 2025-01-02 | Outpatient (CLI) | payer OTHER, SELFPAY ==
--- NOTE | 2025-01-02 12:30 | MRI_ITS ---
PROCEDURE: SPINE CERVICAL (ROUTINE) 01/02/2025 REASON FOR EXAM: CERVICAL RADICULOPATHY TECHNIQUE: SPINE CERVICAL (ROUTINE) Multiplanar and multisequence images were obtained without IV contrast administration. COMPARISON: December 11, 2024 FINDINGS: Vertebrae: Cervical vertebral body heights are preserved. Bone marrow signal is unremarkable. Alignment: Straightening. No spondylolisthesis Spinal Cord: Cervical spinal cord is of normal size and signal intensities. Structures at the foramen magnum are unremarkable. C2-3: Minimal facet hypertrophy. C3-4: Minimal disc protrusion and uncinate spurring. Minimal bilateral facet hypertrophy. No central stenosis or exit foraminal narrowing. C4-5: Unremarkable C5-6: Unremarkable C6-7: [id number] disc space narrowing. Diffuse disc protrusion. Partial effacement anterior thecal sac. CSF is seen around the cord. Central stenosis to 8 mm. Bilateral uncinate spurring. Moderate bilateral facet hypertrophy. Bilateral exit foraminal narrowing. C7-T1: Unremarkable MRI/Spine Cervical (Routine) IMPRESSION: 1. Straightening of the normal cervical lordosis. Disc space narrowing C6/7. Central stenosis and exit foraminal narrowing C6/7. Reading Location: [id number]
--- OUTSIDE RECORDS SUMMARY | 2025-01-02 22:15 | XMS RPT_ITS | CCD ---
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 Billy Valadez Primary Care Provider Dr. Blily Valadez Attending Provider Gaurav Medina Attending Provider Unavailable Dr. Billy Valadez Primary Care Provider Dr. Billy Valadez Attending Provider Dr. Billy Valadez Primary Care Provider Dr. Billy Valadez Attending Provider Dr. Billy Valadez MD Primary Care Provider Dr. Billy Valadez MD Referring Provider Josué Stoner Attending Provider Dr. Billy Valadez MD Attending Provider Billy Valadez Primary Care Unavailable Billy Valadez Referring Unavailable Billy Valadez Attending Unavailable Billy Valadez Primary Care Unavailable David Hernandez Attending Unavailable Billy Valadez Attending Unavailable Billy Valadez Primary Care Unavailable Billy Valadez Referring Unavailable Billy Valadez Attending Unavailable Billy Valadez Primary Care Unavailable Billy Valadez Primary Care Unavailable Billy Valadez Attending Unavailable Billy Valadez Primary Care Unavailable Billy Valadez Attending Unavailable Billy Valadez Primary Care Unavailable Billy Valadez Referring Unavailable Josué Stoner Attending Unavailable Billy Valadez Attending Unavailable Billy Valadez Primary Care Unavailable Billy Valadez Attending Unavailable Billy Valadez Primary Care Unavailable Billy Valadez Referring Unavailable Allergies Allergy Classification Reported Allergen(s) Allergy Type Date of Onset Reaction(s) Facility (6 sources) Seasonal Allergies: Uncoded; Translations: [Seasonal Allergies: Uncoded] Allergy to substance 10-10-2022 Other [facility] Comment on above: Nasal congestion and watery eyes Medications Current Medications Medication Drug Class(es) Dates Sig (Normalized) Sig (Original) Ascorbic Acid (5 sources) Vitamin C Start: 10-10-2022 vitamin c Acti ve PO October 09, 2022 11:00pm unsure of dose Start: 10-10-2022 vitamin c Acti ve PO October 10, 2022 12:00am unsure of dose B12 (5 sources) Start: 10-10-2022 B12 Active PO October 09, 2022 11:00pm doesnt know dose Start: 10-10-2022 B12 Active PO October 10, 2022 12:00am doesnt know dose cholecalciferol 0.025 mg oral tablet (8 sources) Vitamin D Start: 04-12-2022 take 1 tablet by mouth once daily Cholecalciferol (Vitamin D3) 25 mcg (1,000 unit) tablet Active 0 PO DAILY April 12, 2022 12:00am 500 units orally daily; cyclobenzaprine hydrochloride 10 mg oral tablet (2 sources) Muscle Relaxant Start: 12-11-2024 take 1 tablet by mouth three times daily as needed for muscle spasms Cyclobenzaprine 10 mg tablet Active 10 mg PO THREE TIMES A DAY as needed for muscle spasm 30 December 11, 2024 12:00am Watch for signs of sedation. Do not operate equipment or drive while using. escitalopram 20 mg oral tablet (20 sources) Serotonin Reuptake Inhibitor Start: 10-25-2024 End: 10-25-2024 take 1 tablet by mouth once daily Escitalopram Oxalate 20 mg tablet Active 20 mg PO DAILY October 25, 2024 11:10am Start: 05-27-2021 End: 07-04-2024 take 1 tablet by mouth once daily Escitalopram Oxalate 20 mg tablet Discontinued 20 mg PO DAILY 90 3 August 03, 2023 4:12pm July 04, 2024 12:37pm Start: 04-15-2021 End: 05-27-2021 take 1 tablet by mouth once daily Escitalopram Oxalate (Lexapro) 5 mg tablet Discontinued 5 mg PO DAILY April 15, 2021 12:00am May 27, 2021 6:20pm Start: 03-19-2019 take 1 tablet by pete th once daily Escitalopram Oxalate 20 MG Oral Tablet TAKE 1 TABLET DAILY. Quantity: 90 Refills: 1 Ordered: 19-Feb-2021 Adriano HA, MPH, Antoni Finn Start : 19-Mar-2019 Active meloxicam 15 mg oral tablet (20 sources) Nonsteroidal Anti-inflammatory Drug Start: 03-10-2021 End: 08-03-2023 take 1 tablet by mouth once daily as needed for pain Meloxicam 15 mg tablet Active 15 mg PO DAILY as needed for Arthritis pain 60 2 August 03, 2023 4:12pm Start: 03-04-2021 End: 03-10-2021 take 1 tablet by mouth once daily Meloxicam 7.5 mg tablet Discontinued 7.5 mg PO DAILY March 04, 2021 12:00am March 10, 2021 3:53pm Start: 03-19-2019 take 1 tablet by pete th once daily as needed for pain Meloxicam 15 MG Oral Tablet TAKE 1 TABLET DAILY NEEDED FOR PAIN. TAKE WITH FOOD AND 8 OZ OF WATER. Quantity: 30 Refills: 2 Ordered: 19-Feb-2021 Adriano HA, MPH, Antoni Finn Start : 19-Mar-2019 Active Multivitamin preparation (3 sources) Start: 10-10-2022 take 1 tablet by mouth once daily Multivitamin Active 1 TABLET PO DAILY October 09, 2022 11:00pm Start: 10-10-2022 take 1 tablet by pete th once daily Multivitamin Active 1 TABLET PO DAILY October 10, 2022 12:00am Multivitamin tablet (2 sources) Start: 10-10-2022 Multivitamin t ablet Active 1 {tbl} PO DAILY October 10, 2022 12:00am predniSONE 10 mg oral tablet (4 sources) Start: 10-07-2024 End: 12-11-2024 take 4 tablets by mouth once daily, then take 3 tablets by mouth once daily, then take 2 tablets by mouth once daily, then take 1 tablet by mouth once daily Prednisone 10 mg tablet Active 10 mg PO DAILY 30 0 December 11, 2024 9:27am 4 tablets daily x3 days, then 3 tablets daily x3 days, then 2 tablets daily x3 days, then 1 tablet daily x3 days tumeric (5 sources) Start: 10-10-2022 tumeric Active PO October 09, 2022 11:00pm doesnt know dose Start: 10-10-2022 tumeric Active PO October 10, 2022 12:00am doesnt know dose Vitamin B Complex (3 sources) Start: 10-10-2022 take 1 tablet by pete th once daily Vitamin B Complex Active 1 TABLET PO DAILY October 09, 2022 11:00pm Start: 10-10-2022 take 1 tablet by mouth once da tahir Vitamin B Complex Active 1 TABLET PO DAILY October 10, 2022 12:00am Vitamin B Complex tablet (2 sources) Start: 10-10-2022 Vitamin B Comp alley tablet Active 1 {tbl} PO DAILY October 10, 2022 12:00am Zinc (5 sources) Start: 10-10-2022 zinc Active PO October 09, 2022 11:00pm doesnt know dose Start: 10-10-2022 zinc Active PO October 10, 2022 12:00am doesnt know dose Completed/Discontinued Medications Medication Drug Class(es) Dates Sig (Normalized) Sig (Original) betamethasone 0.5 mg/ml / clotrimazole 10 mg/ml topical cream (4 sources) Azole Antifungal, Corticosteroid Start: 03-19-2019 Lotrisone 1-0.05 % External Cream APPLY AND RUB IN A THIN FILM TO AFFECTED AREAS TWICE DAILY.(AM AND PM). Refills: 0 Yvon Man Start : 19-Mar-2019 Active 15 GM Tube 24 hr buPROPion hydrochloride 300 mg extended release oral tablet (20 sources) Aminoketone Start: 01-08-2024 End: 10-25-2024 take 1 tablet by mouth once daily in the morning Bupropion Hcl (Wellbutrin Xl) 300 mg tablet extended release 24 hr Discontinued 300 mg PO EVERY MORNING 90 1 January 08, 2024 12:00am October 25, 2024 9:43am Start: 03-04-2021 End: 04-11-2022 take 1 tablet by mouth once daily in the morning Bupropion Hcl (Wellbutrin Xl) 300 mg tablet extended release 24 hr Discontinued 300 mg PO EVERY MORNING 30 0 March 10, 2022 9:53am April 11, 2022 9:52am Start: 03-19-2019 take 1 tablet by pete th once daily buPROPion HCl ER (XL) 300 MG Oral Tablet Extended Release 24 Hour TAKE 1 TABLET DAILY. Quantity: 90 Refills: 1 Ordered: 19-Feb-2021 Adriano HA, MPH, Antoni Finn Start : 19-Mar-2019 Active busPIRone hydrochloride 5 mg oral tablet (8 sources) Start: 04-20-2014 End: 03-04-2021 take 1 tablet by mouth once daily Buspirone 5 MG tablet Discontinued 5 mg PO DAILY April 20, 2014 1:00am March 04, 2021 10:17am ciprofloxacin 500 mg oral tablet (5 sources) Quinolone Antimicrobial Start: 10-10-2022 End: 10-20-2022 take 1 tablet by mouth twice daily Ciprofloxacin Hcl (Cipro) 500 mg tablet Discontinued 500 mg PO TWICE A DAY 20 October 10, 2022 12:00am October 19, 2022 12:00am October 20, 2022 12:05am citalopram 20 mg oral tablet (8 sources) Serotonin Reuptake Inhibitor Start: 04-20-2014 End: 04-15-2021 take 1 tablet by mouth once daily Citalopram 20 MG tablet Discontinued 20 mg PO DAILY April 20, 2014 1:00am April 15, 2021 5:48pm docosahexaenoic acid 120 mg / eicosapentaenoic acid 180 mg oral capsule (1 source) Start: 09-02-2019 take 1 capsule by mouth once daily [place]-3 Fish Oil 1000 MG Oral Capsule TAKE 1 CAPSULE Daily Quantity: 0 Refills: 0 Ordered: 02-Sep-2019 DO Start : 02-Sep-2019 Active fluconazole 100 mg oral tablet (8 sources) Azole Antifungal Start: 04-05-2021 End: 04-10-2021 take 1 tablet by mouth once daily Fluconazole (Diflucan) 100 mg tablet Discontinued 100 mg PO DAILY 5 5 0 April 05, 2021 12:00am April 09, 2021 12:00am April 10, 2021 12:01am fluticasone propionate 0.05 mg/actuat metered dose nasal spray (14 sources) Corticosteroid Start: 06-23-2022 End: 07-04-2024 take 50 ug nasal route once daily Fluticasone Propionate (Flonase Allergy Relief) 50 mcg/actuation spray,suspension Discontinued 1 NMA INTRANASAL DAILY 27 06August 03, 2023 4:12pm July 04, 2024 12:54pm administer into each nostril Start: 06-23-2022 End: 08-03-2023 take 1 spray(s) nasal route once daily Fluticasone Propionate (Flonase Allergy Relief) 50 mcg/actuation spray,suspension Active 1 SPRAY INTRANASAL DAILY August 03, 2023 3:12pm administer into each nostril lactobacillus acidophilus [id number] unt oral capsule (1 source) Start: 09-02-2019 Acidophilus Or al Capsule TAKE DIRECTED. Quantity: 0 Refills: 0 Ordered: 02-Sep-2019 DO Start : 02-Sep-2019 Active Multiple Vitamins Oral Tablet (1 source) Start: 09-02-2019 take 1 tablet by mouth once daily Multiple Vitamins Oral Tablet TAKE 1 TABLET DAILY. Quantity: 0 Refills: 0 Ordered: 02-Sep-2019 DO Start : 02-Sep-2019 Active Niacin (5 sources) Nicotinic Acid Start: 10-10-2022 End: 12-11-2024 niacin Discontinued PO October 10, 2022 12:00am December 11, 2024 8:58am doesnt know dose Start: 10-10-2022 niacin Active PO October 09, 2022 11:00pm doesnt know dose Start: 10-10-2022 niacin Active PO October 10, 2022 12:00am doesnt know dose tamsulosin hydrochloride 0.4 mg oral capsule (10 sources) alpha-Adrenergic Krystin Start: 10-12-2022 End: 08-03-2023 take 1 capsule by mouth twice daily Tamsulosin 0.4 mg capsule Discontinued 0.4 mg PO TWICE A DAY 20 0 October 12, 2022 1:06pm August 03, 2023 3:09pm Turmeric extract (1 source) Start: 09-02-2019 take [...] Problem Classification Problem Date Documented Date Episodic/Chronic Abdominal pain (14 sources) Right lower quadrant pain; Translations: [Right lower quadrant pain] 10-10-2022 Episodic Anxiety disorders (17 sources) Generalized anxiety disorder; Translations: [Generalized anxiety disorder] Chronic Biliary tract disease (18 sources) Biliary calculus; Translations: [Calculus of gallbladder with cholecystitis] 03-04-2021 Episodic Calculus of urinary tract (20 sources) History of calculus of kidney; Translations: [Personal history of urinary calculi] 03-04-2021 Episodic Diabetes mellitus without complication (8 sources) Prediabetes; Translations: [Other abnormal glucose] 06-28-2024 Episodic Disorders of lipid metabolism (20 sources) Hypertriglyceridemia; Translations: [Dyslipidemia] Chronic Fracture of upper limb (1 source) Nondisplaced fracture of distal phalanx of left little finger, initial encounter for open fracture; Translations: [Open nondisplaced fracture of distal phalanx of left little finger, initial encounter] Onset: 03-10-2022 Episodic Genitourinary symptoms and ill-defined conditions (6 sources) Nocturia; Translations: [Nocturia] Episodic Malaise and fatigue (9 sources) Fatigue; Translations: [Other malaise and fatigue] 04-15-2021 Episodic Mood disorders (17 sources) Major depressive disorder; Translations: [Major depressive affective disorder, single episode, unspecified] Chronic Open wounds of extremities (8 sources) Laceration of finger; Translations: [Laceration without foreign body of unspecified finger without damage to nail, initial encounter] 11-22-2020 Episodic Osteoarthritis (9 sources) Osteoarthritis of right knee joint; Translations: [Osteoarthrosis, localized, primary, lower leg] 03-04-2021 Chronic Other circulatory disease (3 sources) Elevated blood pressure; Translations: [Elevated blood-pressure reading, without diagnosis of hypertension] 08-03-2023 Episodic Other circulatory disease (1 source) Elevated blood-pressure reading, without diagnosis of hypertension; Translations: [Elevated blood pressure reading without diagnosis of hypertension] 08-03-2023 Episodic Other diseases of kidney and ureters (6 sources) Acquired complex renal cyst; Translations: [Cyst of kidney, acquired] Episodic Other diseases of kidney and ureters (16 sources) Cyst of kidney; Translations: [Cyst of kidney, acquired] 03-10-2021 Episodic Other diseases of kidney and ureters (6 sources) Cyst of kidney, acquired; Translations: [Cystic kidney disease, unspecified] Episodic Other non-traumatic joint disorders (2 sources) [...] eating - polyphagia; Translations: [Polyphagia] Episodic Other skin disorders (3 sources) Eruption; Translations: [Rash and other nonspecific skin eruption] Episodic Other upper respiratory disease (8 sources) Seasonal allergy; Translations: [Other seasonal allergic rhinitis] 03-04-2021 Chronic Other upper respiratory infections (9 sources) Nasal discharge; Translations: [Postnasal drip] 06-23-2022 Episodic Residual codes; unclassified (6 sources) Chronic back pain ; Translations: [Backache, unspecified] Episodic Residual codes; unclassified (6 sources) Unprotected sexual intercourse; Translations: [High-risk sexual behavior] Episodic Residual codes; unclassified (1 source) Influenza-like symptoms; Translations: [Other general symptoms] Episodic Residual codes; unclassified (8 sources) History of hernia repair; Translations: [Other specified postprocedural states] 03-10-2021 Episodic Spondylosis; intervertebral disc disorders; other back problems (6 sources) Lumbar spondylosis; Translations: [Lumbosacral spondylosis without myelopathy] Chronic Spondylosis; intervertebral disc disorders; other back problems (7 sources) Cervical radiculopathy; Translations: [Radiculopathy, cervical region] Onset: 12-18-2024 10-07-2024 Episodic Sprains and strains (2 sources) Rupture of gastrocnemius tendon; Translations: [Strain of other muscle(s) and tendon(s) of posterior muscle group at lower leg level, unspecified leg, initial encounter] 07-04-2024 Episodic Past or Other Problems Problem Classification Problem Date Documented Date Episodic/Chronic Osteoarthritis (5 sources) Osteoarthritis of right knee joint; Translations: [Primary osteoarthritis of right knee] Other screening for suspected conditions (not mental disorders or infectious disease) (20 sources) Patient encounter status; Translations: [Special screening for malignant neoplasms of colon] Onset: 07-04-2024 04-15-2021 Episodic NEGATED: Highlighted row has not occurred!Residual codes; unclassified (6 sources) Disease Episodic Results Test Name Value Interpretation Reference Range Facility Cerv Spine 2 or 3 Viewson Cerv Spine 2 or 3 Views [facility] Imaging Services [address] [place] [id number] Cerv Spine 2 or 3 Views MR#: [id number] Acct: [id number] Name: ALLI HOLLAND Rep #: [id number] : 1975 M 49 From: Elsi Jensen MD PCP: Dr. Billy Valadez MD Status: REG CLI Study: Cerv Spine 2 or 3 Views Date of Exam: 12/11/24 Exam# [id number] Ordering Dr: Billy Valadez MD PROCEDURE: CERV SPINE 2 OR 3 VIEWS 12/11/2024 REASON FOR EXAM: CERVICAL RADICULOPATHY TECHNIQUE: CERV SPINE 2 OR 3 VIEWS COMPARISON: None. FINDINGS: No evidence of acute fracture or dislocation. Mild to moderate discogenic degenerative changes of visualized spine. Normal alignment. RAD/Cerv Spine 2 or 3 Views IMPRESSION: Spondylosis. Disclaimer: Reading Location: [id number] CC: Dr. Billy Valadez MD Therapy Administrative Assistant: Signed [facility] MR/BMS.IMBon 12-11-2024 MR/BMS.IMB [facility] [address] [place] [address] OFFICE VISIT Date of Service: 12/11/24 MR#: [id number] Acct: [id number] Name: ALLI HOLLAND Rep #: [id number] : 1975 Provider: Dr. 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: No Accompanied by: Self Is patient in pain?: Yes (Neck pain ) Pain scale (1-10): 6 Allergies Seasonal Allergies: Uncoded Allergy (Intermediate, Verified 12/11/24 08:53) Other Medications ???Medication ???Instructions ???Recorded ???Confirmed ???Type cholecalciferol (vitamin D3) 25 See Rx Instructions PO DAILY 04/1212/11/24 History mcg (1,000 unit) tablet B12 PO 10/10/22 12/11/24 History multivitamin 1 tab PO DAILY 10/10/22 12/11/24 H istory tumeric PO 10/10/22 12/11/24 History vitamin B complex 1 tab PO DAILY 10/10/22 12/11/24 H istory vitamin c PO 10/10/22 12/11/24 History zinc PO 10/10/22 12/11/24 History meloxicam 15 mg tablet 15 mg PO DAILY PRN Arthritis pain 08/03/23 12/11/24 Rx #60 tabs fluticasone propionate 50 1 spray intranasal DAILY #16 grams 01/23/25 07/02/25 Rx mcg/actuation nasal spray,suspension (Flonase Allergy Relief) escitalopram oxalate 20 mg tablet 20 mg PO DAILY #90 tabs 10/25/24 12/11/24 Rx cyclobenzaprine 10 mg tablet 10 mg PO TID PRN muscle spasm #30 12/11/24 12/11/24 Rx tabs prednisone 10 mg tablet 10 mg PO DAILY #30 tabs 12/11/24 0 12/11/24 Rx PFSH Medical History Cervical radiculopathy Gastrocnemius tear Elevated fasting blood sugar Encounter for screening for COVID-19 Anxiety Arthritis Gallstones Kidney stones Hyperlipemia Seasonal allergies Depression Cyst of right kidney Cyst of left kidney Surgical History Hx of removal of cyst History of cholecystectomy History of hernia repair Family History Other Anxiety with depression Arthritis Social History Smoking Status: Never smoker Tobacco: How many years used: 10 alcohol intake: never substance use type: does not use what 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 49-year-old gentleman who generally speaking is been pretty healthy. He takes low-dose of Lexapro, vitamin D. He started back in September with tingling numbness sensation in the right forearm across the dorsum of the forearm out to the fingers, predominantly digits 2 and 3 initially. He woke up with it [address] After a period of time, he did go to [facility] and was diagnosed with cervical radiculopathy. He was prescribed a course of prednisone which at the time he felt did not do a whole lot and certainly did not resolve. It has been basically staying the same over the last several months until he woke up this morning with severe pain described in those same areas, in the dorsum of the forearm, out into the hand, more the thumb, 2nd and 3rd digits is to where he feels a lot of more intense, also the inner aspect of the upper arm, and the right side of the neck. No acute trauma to the neck. Has not had similar problem in the past although he did have an episode of sciatica in the past where it was felt related to L4-L5 disc disease he believes remotely. That has been stable. In any event, he has not had a rash in the neck or arm recently. No fever or chills. No other new acute issues. Review of systems per chart. Physical exam. Vital signs on chart. My exam is limited and focused. Deep tendon reflexes, 2/4 and symmetric at the bicep, tricep, brachial. No tenderness or reproducible discomfort in the arm itself. Normal vascular inflow into the arm and hand. Skin is warm and dry. No obvious rashes. Spurling test is clearly positive, with rotation to the right, tilt increasing the discomfort significantly. With chin tuck, and gentle neck traction, pain was largely relieved. There is tenderness, along the paraspinal muscles that rep (more content not included)... Normal [facility] Urgent Care Visit Reporton 0 10-07-2024 Urgent Care Visit Report [facility] [address], [address] [place] [address] OFFICE VISIT Date of Service: 10/07/24 MR#: [id number] Acct: [id number] Name: ALLI HOLLAND Rep #: [id number] : 1975 Provider: ODALIS Wagoner Age/Sex: 49/M Location: [facility] Status: Signed Intake Vital Signs 07/04/24 11:40 10/07/24 17:41 Height 5 ft 10 in 5 ft 10 in Weight: 245 lb 6 oz 230 lb BMI 35.2 33.0 BP 133/84 H 114/82 H Blood Pressure Location Lt brachial Lt brachial Position Sitting Sitting Respiration 16 14 Pulse 70 64 Pulse Source Monitor Auscultation Temp 98.4 F 98.0 F Temp Source Temporal Oral Pulse Oximetry (%) 94 Oxygen Delivery Method room air Intake Visit Reasons: WHOLE R ARM AND HAND NUMBNESS AND TINGLING Chief Complaint: L ankle pain Allergies Seasonal Allergies: Uncoded Allergy (Intermediate, Verified 07/04/24 11:34) Other [facility] Medical History (Updated 10/07/24 @ 17:47 by Josué JACOBO, PA) Cervical radiculopathy Gastrocnemius tear Elevated fasting blood sugar Encounter for screening for COVID-19 Anxiety Arthritis Gallstones Kidney stones Hyperlipemia Seasonal allergies Depression Cyst of right kidney Cyst of left kidney Surgical History Hx of removal of cyst History of cholecystectomy History of hernia repair Family History Other Anxiety with depression Arthritis Social History Smoking Status: Never smoker Tobacco: How many years used: 10 alcohol intake: never substance use type: does not use what 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 He notes no history of cervical trauma or bilateral shoulder/elbow/wrist /hand trauma. PMH NC. He is taking no [id number] products to assist with current symptoms. He notes no other associated symptoms and no other alleviating/aggravat ing factors. ROS Const Constitutional: No other (As above) Exam Const General: cooperative, healthy appearing and no acute distress Nutritional Appearance: average body habitus Orientation: alert and awake [facility] Head: normal to inspection Ears: hearing grossly normal bilaterally and external ears normal Nose: external nose normal Neck Neck: normal visual inspection, full ROM, no meningeal signs and supple Chest Chest palpation inspection: normal inspection of the chest Resp Effort Inspection: normal respiratory effort and able to speak in complete sentences Cardio Rate: regular rate Pulses: radial pulses present Musc Cervical Spine: cervical ROM normal and cervical muscular tenderness (R>L, w/ RMF paresthesias reproducible to palpation); No cervical spinal tenderness Skin General: no rashes or lesions noted Neuro General: patient alert and patient awake Cognition: normal cognition Speech: speech normal Extrem Other: RUE: Negative Phalen's at right wrist and right elbow, negative Tinel's right wrist, and unguarded FAROM right shoulder/elbow/wrist /digits x 5 Psych Appearance: grossly normal Mental Status: mental status grossly normal Mood: congruent mood Affect: normal affect Speech and Movement: speech and movement normal Attitude: cooperative Coding Level of Care Code Off vis,new,level 3 Diagnoses Cervical radiculopathy M54.12 Assessment and Plan Assessment and Plan (1) Cervical radiculopathy: Status: Acute Plan: Radiology department close at time of patient evaluation. Prednisone is prescribed today. Supportive measures including rest, home range of motion exercises as instructed today, as well as ergonomic recommendations in preventing chronic cervical flexion. Follow-up with PCP or orthospine in 5 to 7 days should symptoms not improve, sooner should symptoms only worsen or any other concerns develop. Patient states acknowledging understanding all the above. This note was generated with [employer] dictation software. It may contain incorrect words, spelling, and punctuation that were not noted in checking the note before signing. Medications: New prednisone 4 tablets daily x3 days, then 3 tablets daily x3 days, then 2 tablets daily x3 days, then 1 tablet daily x3 days 10 mg PO DAILY 3 (more content not included)... Normal [facility] MR/BMS.Bon 07-04-2024 MR/BMS.IMB [facility] [address] [place] [address] OFFICE VISIT Date of Service: 07/04/24 MR#: [id number] Acct: [id number] Name: ALLI HOLLAND Rep #: [id number] : 1975 Provider: Dr. Billy magallanes MD Age/Sex: 48/M Location: [facility] Status: Signed Intake Vital Signs 08/03/23 14:07 07/04/24 11:40 Height 5 ft 10 in 5 ft 10 in Weight: 250 lb 2 oz 245 lb 6 oz BMI 35.9 35.2 BP 123/79 H 133/84 H Blood Pressure Location Lt brachial Lt brachial Position Sitting Sitting Respiration 16 16 Pulse 87 70 Pulse Source Monitor Monitor Temp 98 F 98.4 F Temp Source Temporal Temporal Pulse Oximetry (%) 94 94 Oxygen Delivery Method room air room air Intake Visit Reasons: Lt Ankle Pain Chief Complaint: L ankle pain [employer] Required: No Accompanied by: Self Is patient in pain?: Yes (L calf) Pain scale (1-10): 1 Allergies Seasonal Allergies: Uncoded Allergy (Intermediate, Verified 07/04/24 11:34) Other Medications ???Medication ???Instructions ???Recorded ???Confirmed ???Type cholecalciferol (vitamin D3) 25 See Rx Instructions PO DAILY 04/12/22 07/04/24 History mcg (1,000 unit) tablet B12 PO 10/10/22 07/04/24 History multivitamin 1 tab PO DAILY 10/10/22 07/04/24 History niacin PO 10/10/22 07/04/24 History tumeric PO 10/10/22 07/04/24 History vitamin B complex 1 tab PO DAILY 10/10/22 07/04/24 History vitamin c PO 10/10/22 07/04/24 History zinc PO 10/10/22 07/04/24 History meloxicam 15 mg tablet 15 mg PO DAILY PRN Arthritis pain 08/03/23 07/04/24 Rx #60 tabs bupropion HCl 300 mg 24 hr tablet, 300 mg PO QAM #90 tabs 01/08/24 07/04/24 Rx extended release (Wellbutrin XL) fluticasone propionate 50 1 spray intranasal DAILY #16 grams 07/04/24 07/04/24 Rx mcg/actuation nasal spray,suspension (Flonase Allergy Relief) [facility] Medical History (Updated 07/04/24 @ 12:[address] 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 Patient has a history of elevated blood sugar, elevated blood pressure readings. He likely has underlying insulin resistance to a fair degree. He is at elevated triglycerides and borderline A1c. Had recent labs done. He does report an acute issue and wanted that evaluated to. That is left calf discomfort. Started yesterday. He was walking, not doing anything particular when he felt a sharp pain, in the medial aspect of the mid belly area of the gastroc. He notes certain motions seem to aggravate it a little bit. Not severe. Has a little bit of a "gimp" he states. This morning when walking out to the truck, and twisting he had a sharp pain once again. Aside from that he reports that he has been doing somewhat better in terms of diet. He is single, however his current girlfriend is vegetarian she does a lot of cooking and he has been getting more fresh fruits and vegetables as well in the diet but still a fair amount of carbohydrates. He has not had colonoscopy to this point. We ordered that last year however he wanted to wait until his insurance change at the end of this year. He is now with a new insurance and he is prepared to do colonoscopy. I have updated the order in the chart to reflect this. He is referred to the hospital for screening colonoscopy. Review of systems per chart. Physical exam. Vital signs on chart. PERRLA. Sclera are clear. TMs are unremarkable with normal light reflexes. Canals are unremarkable. Posterior pharynx is unremarkable. Good dentition. No cervical or supraclavicular lymph nodes enlarged or tender. No clear thyromegaly. No thyroid nodules readily palpable. Lungs are without wheeze, rhonchi, rales. No E/A changes are heard. Heart is regular. Not tachycardic. No clear murmur, rub, or gallop is identified. The abdomen is soft. Bowel sounds are present. Nontender nondistended abdomen. No significant leg edema. Cranial nerve examination 2 through 12 are grossl (more content not included)... Normal [facility] CBC W/Diff, Automatedon 01-2 0-2024 Absolute Lymph 2.71 X10 3/uL Normal 0.83-4.51 [facility] Comment on above: Performed By: #### L 500.4100, L500.4050, L506.1000, L501.9985, L100.0100 #### [facility] [address] [place], [address] Absolute Neut 5.4 X10 3/uL Normal 2.0-7.7 [facility] Comment on above: Performed By: #### L 500.4100, L500.4050, L506.1000, L501.9985, L100.0100 #### [facility] [address] [place], [address] Basophils/100 WBC (Bld) 0.3 % Normal 0-1 [facility] Comment on above: Performed By: #### L 500.4100, L500.4050, L506.1000, L501.9985, L100.0100 #### [facility] [address] [place], [address] Eosinophils/100 WBC (Bld) 1.8 % Normal 0-5 [facility] Comment on above: Performed By: #### L 500.4100, L500.4050, L506.1000, L501.9985, L100.0100 #### [facility] [address] [place], [address] Erythrocyte distribution width (RBC) [Ratio] 12.7 % Normal 11.6-14.6 [facility] Comment on above: Performed By: #### L 500.4100, L500.4050, L506.1000, L501.9985, L100.0100 #### [facility] [address] [place], [address] Hematocrit (Bld) [Volume fraction] 44.6 % Normal 40-54 [facility] Comment on above: Performed By: #### L 500.4100, L500.4050, L506.1000, L501.9985, L100.0100 #### [facility] [address] [place], [address] Hemoglobin (Bld) [Mass/Vol] 15.0 g/dL Normal 13.0-16.5 [facility] Comment on above: Performed By: #### L 500.4100, L500.4050, L506.1000, L501.9985, L100.0100 #### [facility] [address] [place], [address] IG% 0.300 Normal 0.0-0.9 [facility] Comment on above: Result Comment: IG% - Immature Granulocytes (promyelocytes, myelocytes and metamyelocytes) > 1% indicates that a LEFT SHIFT is Present. Performed By: #### L 500.4100, L500.4050, L506.1000, L501.9985, L100.0100 #### [facility] [address] [place], [address] Lymphocytes/100 WBC (Bld) 30.5 % Normal 19-41 [facility] Comment on above: Performed By: #### L 500.4100, L500.4050, L506.1000, L501.9985, L100.0100 #### [facility] [address] [place], [address] MCH (RBC) [Entitic mass] 29.4 pg Normal 27.0-32.0 [facility] Comment on above: Performed By: #### L 500.4100, L500.4050, L506.1000, L501.9985, L100.0100 #### [facility] [address] [place], [address] MCHC (RBC) [Mass/Vol] 33.6 g/dL Normal 32-36 [facility] Comment on above: Performed By: #### L 500.4100, L500.4050, L506.1000, L501.9985, L100.0100 #### [facility] [address] [place], [address] MCV (RBC) [Entitic vol] 87.5 fL Normal 80-94 [facility] Comment on above: Performed By: #### L 500.4100, L500.4050, L506.1000, L501.9985, L100.0100 #### [facility] [address] [place], [address] Monocytes/100 WBC (Bld) 6.1 % Normal 0-10 [facility] Comment on above: Performed By: #### L 500.4100, L500.4050, L506.1000, L501.9985, L100.0100 #### [facility] [address] [place], [address] Neutrophils/100 WBC (Bld) 61.0 % Normal 47-70 [facility] Comment on above: Performed By: #### L 500.4100, L500.4050, L506.1000, L501.9985, L100.0100 #### [facility] [address] [place], [address] Nucleated RBC (Bld) [#/Vol] 0 10*3/uL Normal 0-5 [facility] Comment on above: Performed By: #### L 500.4100, L500.4050, L506.1000, L501.9985, L100.0100 #### [facility] [address] [place], [address] Platelet mean volume (Bld) [Entitic vol] 11.8 fL Normal 6.2-12.0 [facility] Comment on above: Performed By: #### L 500.4100, L500.4050, L506.1000, L501.9985, L100.0100 #### [facility] [address] [place], [address] Platelets (Bld) [#/Vol] 242 10*3/uL Normal 150-450 [facility] Comment on above: Performed By: #### L 500.4100, L500.4050, L506.1000, L501.9985, L100.0100 #### [facility] [address] [place], [address] RBC (Bld) [#/Vol] 5.10 10*6/uL Normal 4.6-6.2 [facility] Comment on above: Performed By: #### L 500.4100, L500.4050, L506.1000, L501.9985, L100.0100 #### [facility] [address] [place], [address] RDW SD 40.6 fl Normal 35.1-43.9 [facility] Comment on above: Performed By: #### L 500.4100, L500.4050, L506.1000, L501.9985, L100.0100 #### [facility] [address] [place], [address] WBC (Bld) [#/Vol] 8.9 10*3/uL Normal 4.4-11.0 [facility] Comment on above: Performed By: #### L 500.4100, L500.4050, L506.1000, L501.9985, L100.0100 #### [facility] [address] [place], [address] Comprehensive Metabolic Prof [facility] 07-01-2024 Albumin [Mass/Vol] 3.8 g/dL Normal 3.2-5.0 [facility] Comment on above: Performed By: #### L 500.4100, L500.4050, L506.1000, L501.9985, L100.0100 #### [facility] [address] [place], [address] Albumin/Globulin [Mass ratio] 1.0 {ratio} Normal 0.9-2.4 [facility] Comment on above: Performed By: #### L 500.4100, L500.4050, L506.1000, L501.9985, L100.0100 #### [facility] [address] [place], [address] ALK P 45 U/L Normal 45-117 [facility] Comment on above: Performed By: #### L 500.4100, L500.4050, L506.1000, L501.9985, L100.0100 #### [facility] [address] [place], [address] ALT [Catalytic activity/Vol] 53 U/L Normal 16-61 [facility] Comment on above: Performed By: #### L 500.4100, L500.4050, L506.1000, L501.9985, L100.0100 #### [facility] [address] [place], [address] AST [Catalytic activity/Vol] 27 U/L Normal 15-37 [facility] Comment on above: Performed By: #### L 500.4100, L500.4050, L506.1000, L501.9985, L100.0100 #### [facility] [address] [place], [address] Bilirubin [Mass/Vol] 0.30 mg/dL Normal 0.20-1.00 [facility] Comment on above: Result Comment: For patients on eltrombopag therapy, use of Dimension [place] TBIL is not recommended. Performed By: #### L 500.4100, L500.4050, L506.1000, L501.9985, L100.0100 #### [facility] [address] [place], [address] BUN/CRE 9.9 RATIO Low 10-20 [facility] Comment on above: Performed By: #### L 500.4100, L500.4050, L506.1000, L501.9985, L100.0100 #### [facility] [address] [place], [address] CA,Total 9.2 mg/dL Normal 8.5-10.1 [facility] Comment on above: Performed By: #### L 500.4100, L500.4050, L506.1000, L501.9985, L100.0100 #### [facility] [address] [place], [address] Chloride [Moles/Vol] 104 mmol/L Normal 98-107 [facility] Comment on above: Performed By: #### L 500.4100, L500.4050, L506.1000, L501.9985, L100.0100 #### [facility] [address] [place], [address] CO2 [Moles/Vol] 32.0 mmol/L Normal 21.0-32.0 [facility] Comment on above: Performed By: #### L 500.4100, L500.4050, L506.1000, L501.9985, L100.0100 #### [facility] [address] [place], [address] Creatinine [Mass/Vol] 1.11 mg/dL Normal 0.70-1.30 [facility] Comment on above: Result Comment: The validity of the calculated GFR GFRAA in patients over 70 years has not been determined. Clinical correlation is essential. Performed By: #### L 500.4100, L500.4050, L506.1000, L501.9985, L100.0100 #### [facility] [address] [place], [address] EST GFR - AA 90 mL/min Normal >60 [facility] Comment on above: Result Comment: Afri can [place] GFR Calc Performed By: #### L 500.4100, L500.4050, L506.1000, L501.9985, L100.0100 #### [facility] [address] [place], [address] GAP 2 Low 5-15 [facility] Comment on above: Performed By: #### L 500.4100, L500.4050, L506.1000, L501.9985, L100.0100 #### [facility] [address] [place], [address] GFR/1.73 sq M.predicted among non-blacks MDRD (S/P/Bld) [Vol rate/Area] 74 mL/min/{1.73_m2} Normal >60 [facility] Comment on above: Result Comment: Non- GFR Calc Performed By: #### L 500.4100, L500.4050, L506.1000, L501.9985, L100.0100 #### [facility] [address] [place], [address] Globulin (S) [Mass/Vol] 3.7 g/dL Normal 2.2-4.2 [facility] Comment on above: Performed By: #### L 500.4100, L500.4050, L506.1000, L501.9985, L100.0100 #### [facility] [address] [place], [address] Glucose [Mass/Vol] 107 mg/dL High 74-106 [facility] Comment on above: Result Comment: Fast ing Glucose result from 100 to 125 mg/dL suggests IMPAIRED HOMEOSTASIS per A.D.A. criteria. Performed By: #### L 500.4100, L500.4050, L506.1000, L501.9985, L100.0100 #### [facility] [address] [place], [address] Potassium [Moles/Vol] 4.0 mmol/L Normal 3.5-5.1 [facility] Comment on above: Performed By: #### L 500.4100, L500.4050, L506.1000, L501.9985, L100.0100 #### [facility] [address] [place], [address] Sodium [Moles/Vol] 139 mmol/L Normal 136-145 [facility] Comment on above: Performed By: #### L 500.4100, L500.4050, L506.1000, L501.9985, L100.0100 #### [facility] [address] [place], [address] T PROT 7.5 g/dL Normal 6.4-8.2 [facility] Comment on above: Performed By: #### L 500.4100, L500.4050, L506.1000, L501.9985, L100.0100 #### [facility] [address] [place], [address] Urea nitrogen [Mass/Vol] 11 mg/dL Normal 7-18 [facility] Comment on above: Performed By: #### L 500.4100, L500.4050, L506.1000, L501.9985, L100.0100 #### [facility] [address] [place], [address] Hemoglobin A1con 07-01-2024 HbA1c (Bld) [Mass fraction] 6.2 % High 3.8-5.6 [facility] Comment on above: Result Comment: Norm al < 5.7 % Prediabetic 5.7 - 6.4 % Diabetic >or= 6.5 % Please note range changes. Performed By: #### L 500.4100, L500.4050, L506.1000, L501.9985, L100.0100 #### [facility] [address] [place], [address] Lipid Profileon 07-01-2024 Cholesterol [Mass/Vol] 269 mg/dL High 200 [facility] Comment on above: Result Comment: <200 mg/dL Desirable 200-240 mg/dL Borderline >240 mg/dL High Risk Performed By: #### L 500.4100, L500.4050, L506.1000, L501.9985, L100.0100 #### [facility] [address] [place], [address] Cholesterol in HDL [Mass/Vol] 51 mg/dL Normal [facility] Comment on above: Result Comment: The drugs N-Acetylcysteine and Metamizole may falsely depress this assay. Reference Range HDL <40 mg/dL Low HDL Cholesterol HDL >or= 60 mg/dL High HDL Cholesterol Performed By: #### L 500.4100, L500.4050, L506.1000, L501.9985, L100.0100 #### [facility] [address] [place], [address] LDL TNP Normal 0-130 [facility] Comment on above: Performed By: #### L 500.4100, L500.4050, L506.1000, L501.9985, L100.0100 #### [facility] [address] [place], [address] Triglyceride [Mass/Vol] 553 mg/dL High [facility] Comment on above: Result Comment: The drugs N-Acetylcysteine and Metamizole may falsely depress this assay. TRIGLYCERIDE IS GREATER THAN 400 mg/dL. LDL RESULT IS INVALID AND WILL NOT BE REPORTED. Serum Triglycerides Reference Interval Normal <150 mg/dL Borderline high 150 - 199 mg/dL High 200 - 499 mg/dL Very High > or = 500 mg/dL Performed By: #### L 500.4100, L500.4050, L506.1000, L501.9985, L100.0100 #### [facility] [address] [place], [address] VLDL TNP Normal 5-40 [facility] Comment on above: Performed By: #### L 500.4100, L500.4050, L506.1000, L501.9985, L100.0100 #### [facility] [address] [place], [address] Vitamin D,25 Hydroxyon 07-01 Vitamin D 25-OH 35.5 ng/mL Normal [facility] Comment on above: Result Comment: Kalina min D 25(OH) Status Range Deficiency <20 ng/mL (50nmol/L) Insufficiency 20 - 30 ng/mL (50 - 75 nmol/L) Sufficiency 30 - 100 ng/mL (75 - 250 nmol/L) Toxicity >100 ng/mL (>250 nmol/L) Performed By: #### L 500.4100, L500.4050, L506.1000, L501.9985, L100.0100 #### [facility] [address] [place], [address] Absolute lymphocyte countOrd ered By: Billy Valadez on 08-14-2023 Lymphocytes Auto (Unsp spec) [#/Vol] 2.32 10*3/uL 0.83-4.51 [facility] Automated lymphocyte count a s percentage of total leukocytesOrdered By: Billy Valadez on 08-14-2023 Lymphocytes/100 WBC Auto (Unsp spec) 34.2 % 19-41 [facility] Basophil percentageOrdered B y: Billy Valadez on 08-14-2023 Basophils/100 WBC (Bld) 0.6 % 0-1 [facility] Bilirubin [Mass/Vol] 0.60 mg/dL 0.20-1.00 [facility] Comment on above: For patients on eltr ombopag therapy, use of Dimension [place] TBIL is not recommended. Chloride [Moles/Vol] 107 mmol/L 98-107 [facility] Cholesterol [Mass/Vol] 275 mg/dL <200 [facility] Comment on above: <200 mg/dL Desirable 200-240 mg/dL Borderline >240 mg/dL High Risk Eosinophils/100 WBC (Bld) 3.4 % 0-5 [facility] Glucose [Mass/Vol] 117 mg/dL 74-106 [facility] Comment on above: Fasting Glucose resu lt from 100 to 125 mg/dL suggests IMPAIRED HOMEOSTASIS per A.D.A. criteria. Hemoglobin (Bld) [Mass/Vol] 14.0 g/dL 13.0-16.5 [facility] Monocytes/100 WBC (Bld) 7.4 % 0-10 [facility] Neutrophils (Bld) [#/Vol] 3.7 10*3/uL 2.0-7.7 [facility] Neutrophils/100 WBC (Bld) 54.1 % 47-70 [facility] Potassium [Moles/Vol] 3.7 mmol/L 3.5-5.1 [facility] Protein [Mass/Vol] 7.5 g/dL 6.4-8.2 [facility] Sodium [Moles/Vol] 140 mmol/L 136-145 [facility] Triglyceride [Mass/Vol] 495 mg/dL <199 [facility] Comment on above: The drugs N-Acetylcy steine and Metamizole may falsely depress this assay. TRIGLYCERIDE IS GREATER THAN 400 mg/dL. LDL RESULT IS INVALID AND WILL NOT BE REPORTED.Serum Triglycerides Reference Interval Normal <150 mg/dL Borderline high 150 - 199 mg/dL High 200 - 499 mg/dL Very High > or = 500 mg/dL WBC (Bld) [#/Vol] 6.8 10*3/uL 4.4-11.0 [facility] Determination of erythrocyte mean corpuscular volume (MCV)Ordered By: Billy Valadez on 08-14-2023 MCV (RBC) [Entitic vol] 88.5 fL 80-94 [facility] Erythrocyte distribution wid th ratioOrdered By: Billy Valadez on 08-14-2023 Erythrocyte distribution width (RBC) [Ratio] 12.8 % 11.6-14.6 [facility] Erythrocyte distribution wid th standard deviationOrdered By: Billy Valadez on 08-14-2023 Erythrocyte distribution width (RBC) [Entitic vol] 41.6 fL 35.1-43.9 [facility] Hematocrit Auto (Bld) [Volum e fraction]Ordered By: Billy Valadez on 08-14-2023 Hematocrit (Bld) [Volume fraction] 43.2 % 40-54 [facility] Immature granulocytes/100 WB C Auto (Bld)Ordered By: Billy Valadez on 08-14-2023 Immature granulocytes/100 WBC (Bld) 0.300 % 0.0-0.9 [facility] Comment on above: IG% - Immature Granu locytes (promyelocytes, myelocytes and metamyelocytes) > 1% indicates that a LEFT SHIFT is Present. Laboratory - Chemistry and C hemistry - challengeOrdered By: Billy Valadez on 08-14-2023 Albumin/Globulin [Mass ratio] 1.0 {ratio} 0.9-2.4 [facility] ALP [Catalytic activity/Vol] 41 U/L 45-117 [facility] ALT [Catalytic activity/Vol] 47 U/L 16-61 [facility] Cholesterol in HDL [Mass/Vol] 44 mg/dL >40 [facility] Comment on above: The drugs N-Acetylcy steine and Metamizole may falsely depress this assay. Reference Range HDL <40 mg/dL Low HDL Cholesterol HDL >or= 60 mg/dL High HDL Cholesterol CO2 [Moles/Vol] 29.0 mmol/L 21.0-32.0 [facility] Globulin (S) [Mass/Vol] 3.8 g/dL 2.2-4.2 [facility] Magnesium [Mass/Vol] 2.0 mg/dL 1.6-2.6 [facility] Urea nitrogen/Creatinine [Mass ratio] 14.5 mg/mg 10-20 [facility] Laboratory - Hematology and Cell countsOrdered By: Billy Valadez on 08-14-2023 MCH (RBC) [Entitic mass] 28.7 pg 27.0-32.0 [facility] MCHC (RBC) [Mass/Vol] 32.4 g/dL 32-36 [facility] Nucleated RBC/100 WBC (Bld) [Ratio] 0 % 0-5 [facility] Platelet mean volume (Bld) [Entitic vol] 12.0 fL 6.2-12.0 [facility] Platelets (Bld) [#/Vol] 231 10*3/uL 150-450 [facility] No Panel InformationOrdered By: Billy Valadez on 08-14-2023 Estimated GFR (MDRD) Amer 91 mL/min >60 [facility] Comment on above: GFR Calc Estimated GFR (MDRD) Non-Af Amer 75 mL/min >60 [facility] Comment on above: Non- GFR Calc Free Triiodothyronine (T3) pg/dL 3.3 pg/mL 2.18-3.98 [facility] Insulin Level 13.8 mU/L 2.6-37.6 [facility] LDL Cholesterol TNP [facility] Comment on above: Test not performed Prostate Specific Antigen Screen 1.23 ng/mL 0.00-4.00 [facility] Comment on above: This test was perfor med using the TPSA assay method for [employer] chemistry system. Values obtained with differentassay methods cannot be used interchangably.When changing PSA assays in the course of monitoring apatient, additional sequential testing should be carriedout to confirm baseline values. Vitamin D 25-Hydroxy 28.5 ng/mL [facility] Comment on above: Vitamin D 25(OH) Sta tus Range Deficiency <20 ng/mL (50nmol/L) Insufficiency 20 - 30 ng/mL (50 - 75 nmol/L) Sufficiency 30 - 100 ng/mL (75 - 250 nmol/L) Toxicity >100 ng/mL (>250 nmol/L) VLDL Cholesterol TNP [facility] Comment on above: Test not performed RBC Auto (Bld) [#/Vol]Ordere d By: Billy Valadez on 08-14-2023 RBC (Bld) [#/Vol] 4.88 10*6/uL 4.6-6.2 [facility] Serum or plasma calcium lauren urement (mass/volume)Ordered By: Billy Valadez on 08-14-2023 Calcium [Mass/Vol] 9.5 mg/dL 8.5-10.1 [facility] Serum or plasma creatinine m easurement (mass/volume)Ordered By: Billy Valadez on 08-14-2023 Creatinine [Mass/Vol] 1.10 mg/dL 0.70-1.30 [facility] Comment on above: The validity of the calculated GFR & GFRAA in patients over 70 years has not been determined. Clinical correlation is essential. Serum or plasma thyroid stim ulating hormone (TSH) measurement (units/volume)Ordered By: Billy Valadez on 08-14-2023 TSH Qn 0.85 uIU/mL 0.358-3.74 [facility] Serum or plasma urea nitroge n measurement (mass/volume)Ordered By: Billy Valadez on 08-14-2023 Urea nitrogen [Mass/Vol] 16 mg/dL 7-18 [facility] Thin prep Papanicolaou smear with manual screeningOrdered By: Billy Valadez on 08-14-2023 Thin prep Papanicolaou smear with manual screening 3.7 g/dL 3.2-5.0 [facility] Thin prep Papanicolaou smear with manual screening 28 U/L 15-37 [facility] Thin prep Papanicolaou smear with manual screening 4 5-15 [facility] Thin prep Papanicolaou smear with manual screening 0.78 ng/dL 0.76-1.46 [facility] Whole blood hemoglobin A1c/t otal hemoglobin ratio (mass fraction)Ordered By: Billy Valadez on 08-14-2023 HbA1c (Bld) [Mass fraction] 6.3 % 3.8-5.6 [facility] Comment on above: Normal < 5.7 % Predi abetic 5.7 - 6.4 % Diabetic >or= 6.5 % Please note range changes. Culture, urineOrdered By: Dr Uli Valadez on 10-12-2022 Bacteria identified Cx Nom (U) Positive [facility] Absolute lymphocyte countOrd ered By: Dr. Valadez on 10-10-2022 Lymphocytes Auto (Unsp spec) [#/Vol] 2.16 10*3/uL 0.83-4.51 [facility] Basophil percentageOrdered B y: Dr. Valadez on 10-10-2022 Basophil percentage 0-5 SEEN /hpf 0-5 [facility] Basophils/100 WBC (Bld) 0.4 % 0-1 [facility] Bilirubin [Mass/Vol] 0.30 mg/dL 0.20-1.00 [facility] Comment on above: For patients on eltr ombopag therapy, use of Dimension [place] TBIL is not recommended. Chloride [Moles/Vol] 103 mmol/L 98-107 [facility] Cholesterol [Mass/Vol] 293 mg/dL <200 [facility] Comment on above: <200 mg/dL Desirable 200-240 mg/dL Borderline >240 mg/dL High Risk Eosinophils/100 WBC (Bld) 2.0 % 0-5 [facility] Glucose [Mass/Vol] 108 mg/dL 74-106 [facility] Comment on above: Fasting Glucose resu lt from 100 to 125 mg/dL suggests IMPAIRED HOMEOSTASIS per A.D.A. criteria. Neutrophils (Bld) [#/Vol] 4.2 10*3/uL 2.0-7.7 [facility] Neutrophils/100 WBC (Bld) 59.8 % 47-70 [facility] Potassium [Moles/Vol] 4.0 mmol/L 3.5-5.1 [facility] Comment on above: Slight Hemolysis, Re sult may be falsely increased. Protein [Mass/Vol] 7.6 g/dL 6.4-8.2 [facility] Sodium [Moles/Vol] 141 mmol/L 136-145 [facility] Triglyceride [Mass/Vol] 670 mg/dL <199 [facility] Comment on above: The drugs N-Acetylcy steine and Metamizole may falsely depress this assay. TRIGLYCERIDE IS GREATER THAN 400 mg/dL. LDL RESULT IS INVALID AND WILL NOT BE REPORTED.Serum Triglycerides Reference Interval Normal <150 mg/dL Borderline high 150 - 199 mg/dL High 200 - 499 mg/dL Very High > or = 500 mg/dL WBC (Bld) [#/Vol] 7.0 10*3/uL 4.4-11.0 [facility] Bilirubin Test strip Ql (U)O rdered By: Dr. Valadez on 10-10-2022 Bilirubin Ql (U) Negative Negative [facility] Blood erythrocytes count (nu mber/volume)Ordered By: Dr. Valadez on 10-10-2022 RBC (Bld) [#/Vol] 4.98 10*6/uL 4.6-6.2 [facility] Blood hemoglobin measurement (mass/volume)Ordered By: Dr. Valadez on 10-10-2022 Hemoglobin (Bld) [Mass/Vol] 14.5 g/dL 13.0-16.5 [facility] Blood lymphocytes/100 leukoc ytesOrdered By: Dr. Valadez on 10-10-2022 Lymphocytes/100 WBC (Bld) 30.7 % 19-41 [facility] Blood monocytes/100 leukocyt esOrdered By: Dr. Valadez on 10-10-2022 Monocytes/100 WBC (Bld) 6.7 % 0-10 [facility] Blood platelet mean volumeOr dered By: Dr. Valadez on 10-10-2022 Platelet mean volume (Bld) [Entitic vol] 11.6 fL 6.2-12.0 [facility] Determination of erythrocyte mean corpuscular volume (MCV)Ordered By: Dr. Valadez on 10-10-2022 MCV (RBC) [Entitic vol] 90.0 fL 80-94 [facility] Hematocrit Auto (Bld) [Volum e fraction]Ordered By: Dr. Valadez on 10-10-2022 Hematocrit (Bld) [Volume fraction] 44.8 % 40-54 [facility] Ketones Test strip Ql (U)Ord ered By: Dr. Valadez on 10-10-2022 Ketones Ql (U) Negative Negative [facility] Laboratory - Chemistry and C hemistry - challengeOrdered By: Dr. Valadez on 10-10-2022 ALP [Catalytic activity/Vol] 42 U/L 45-117 [facility] ALT [Catalytic activity/Vol] 44 U/L 16-61 [facility] CO2 [Moles/Vol] 30.0 mmol/L 21.0-32.0 [facility] Globulin (S) [Mass/Vol] 3.8 g/dL 2.2-4.2 [facility] Urea nitrogen/Creatinine [Mass ratio] 13.6 mg/mg 10-20 [facility] Laboratory - Hematology and Cell countsOrdered By: Dr. Valadez on 10-10-2022 Erythrocyte distribution width (RBC) [Entitic vol] 42.8 fL 35.1-43.9 [facility] Erythrocyte distribution width (RBC) [Ratio] 13.1 % 11.6-14.6 [facility] Immature granulocytes/100 WBC (Bld) 0.400 % 0.0-0.9 [facility] Comment on above: IG% - Immature Granu locytes (promyelocytes, myelocytes and metamyelocytes) > 1% indicates that a LEFT SHIFT is Present. MCH (RBC) [Entitic mass] 29.1 pg 27.0-32.0 [facility] Nucleated RBC/100 WBC (Bld) [Ratio] 0 % 0-5 [facility] MCHC Auto (RBC) [Mass/Vol]Or dered By: Dr. Valadez on 10-10-2022 MCHC (RBC) [Mass/Vol] 32.4 g/dL 32-36 [facility] Mucus LM Ql (Urine sed)Order ed By: Dr. Valadez on 10-10-2022 Mucus Ql (Urine sed) 0 SEEN /hpf [facility] Nitrite Test strip Ql (U)Ord ered By: Dr. Valadez on 10-10-2022 Nitrite Ql (U) Negative Negative [facility] No Panel InformationOrdered By: Dr. Valadez on 10-10-2022 Estimated GFR (MDRD) Amer 92 mL/min >60 [facility] Comment on above: GFR Calc Estimated GFR (MDRD) Non-Af Amer 76 mL/min >60 [facility] Comment on above: Non- GFR Calc Vitamin D 25-Hydroxy 42.0 ng/mL [facility] Comment on above: Vitamin D 25(OH) Sta tus Range Deficiency <20 ng/mL (50nmol/L) Insufficiency 20 - 30 ng/mL (50 - 75 nmol/L) Sufficiency 30 - 100 ng/mL (75 - 250 nmol/L) Toxicity >100 ng/mL (>250 nmol/L) Platelets bldOrdered By: Dr. Valadez on 10-10-2022 Platelets (Bld) [#/Vol] 237 10*3/uL 150-450 [facility] Protein Test strip Ql (U)Ord ered By: Dr. Valadez on 10-10-2022 Protein Ql (U) 15 mg/dl Negative [facility] Serum or plasma albumin lauren urement (mass/volume)Ordered By: Dr. Valadez on 10-10-2022 Albumin [Mass/Vol] 3.8 g/dL 3.2-5.0 [facility] Serum or plasma albumin/glob ulin mass ratioOrdered By: Dr. Valadez on 10-10-2022 Albumin/Globulin [Mass ratio] 1.0 {ratio} 0.9-2.4 [facility] Serum or plasma calcium lauren urement (mass/volume)Ordered By: Dr. Valadez on 10-10-2022 Calcium [Mass/Vol] 9.3 mg/dL 8.5-10.1 [facility] Serum or plasma cholesterol in HDL measurement (mass/volume)Ordered By: Dr. Valadez on 10-10-2022 Cholesterol in HDL [Mass/Vol] 43 mg/dL >40 [facility] Comment on above: The drugs N-Acetylcy steine and Metamizole may falsely depress this assay. Reference Range HDL <40 mg/dL Low HDL Cholesterol HDL >or= 60 mg/dL High HDL Cholesterol Serum or plasma cholesterol in VLDL measurement (mass/volume)Ordered By: Dr. Valadez on 10-10-2022 Cholesterol in VLDL [Mass/Vol] [facility] Comment on above: Test not performed Serum or plasma creatinine m easurement (mass/volume)Ordered By: Dr. Valadez on 10-10-2022 Creatinine [Mass/Vol] 1.10 mg/dL 0.70-1.30 [facility] Comment on above: The validity of the calculated GFR & GFRAA in patients over 70 years has not been determined. Clinical correlation is essential. Serum or plasma low density lipoprotein (LDL) cholesterol measurement (mass/volume)Ordered By: Dr. Valadez on 10-10-2022 Cholesterol in LDL [Mass/Vol] [facility] Comment on above: Test not performed Serum or plasma urea nitroge n measurement (mass/volume)Ordered By: Dr. Valadez on 10-10-2022 Urea nitrogen [Mass/Vol] 15 mg/dL 7-18 [facility] Squamous epithelial cells de tection in urine sediment by light microscopyOrdered By: Dr. Valadez on 10-10-2022 Epithelial cells.squamous LM Ql (Urine sed) 0 SEEN /hpf 0-5 [facility] Thin prep Papanicolaou smear with manual screeningOrdered By: Dr. Valadez on 10-10-2022 Thin prep Papanicolaou smear with manual screening 23 U/L 15-37 [facility] Comment on above: Slight Hemolysis, Re sult may be falsely increased. Thin prep Papanicolaou smear with manual screening 8 5-15 [facility] Urine blood detectionOrdered By: Dr. Valadez on 10-10-2022 RBC Ql (U) 250 /ul Negative [facility] RBC Ql (U) 25-50 SEEN /hpf 0-5 [facility] Urine clarityOrdered By: Dr. Valadez on 10-10-2022 Clarity (U) Sl. Cloudy Clear [facility] Urine color determinationOrd ered By: Dr. Valadez on 10-10-2022 Color (U) Yellow Yellow [facility] Urine glucose detectionOrder ed By: Dr. Valadez on 10-10-2022 Glucose Ql (U) Normal mg/dl Normal [facility] Urine leukocyte esterase det ection by dipstickOrdered By: Dr. Valadez on 10-10-2022 Leukocyte esterase Test strip Ql (U) 25 /ul Negative [facility] Urine pHOrdered By: Dr. Jauregui hner on 10-10-2022 pH (U) 6.0 [pH] 5.0 - 8.0 [facility] Urine sediment bacteria coun t by microscopy (number/high power field)Ordered By: Dr. Valadez on 10-10-2022 Bacteria LM.HPF (Urine sed) [#/Area] 0 /[HPF] None Seen [facility] Urine specific gravity measu rementOrdered By: Dr. Valadez on 10-10-2022 Specific gravity (U) [Rel density] 1.015 1.002-1.030 [facility] Urobilinogen Auto test strip Ql (U)Ordered By: Dr. Valadez on 10-10-2022 Urobilinogen Ql (U) Normal mg/dl Normal [facility] Laboratory - Chemistry and C hemistry - challengeon 06-23-2022 Bilirubin Ql (U) Negative [facility] Glucose Ql (U) 1000 g/dL [facility] Ketones Ql (U) Negative [facility] pH (U) 5.0 [pH] [facility] Specific gravity (U) [Rel density] 1.010 [facility] Urobilinogen (U) [Mass/Vol] 0.2488977 mg/dL [facility] Laboratory - Hematology and Cell countson 06-23-2022 Hemoglobin Ql (U) Trace [facility] Laboratory - Specimen inform ationon 06-23-2022 Clarity (U) Clear [facility] Color (U) Yellow [facility] Laboratory - Urinalysison Nitrite Ql (U) Negative [facility] Protein Ql (U) Negative [facility] No Panel Informationon 06-23 Urine Leukocytes Negatve [facility] Urine Non-Hemolyzed Blood [facility] Absolute lymphocyte countOrd ered By: Dr. Valadez on 04-11-2022 Lymphocytes Auto (Unsp spec) [#/Vol] 2.16 10*3/uL 0.83-4.51 [facility] Basophil percentageOrdered B y: Dr. Valadez on 04-11-2022 Basophils/100 WBC (Bld) 0.4 % 0-1 [facility] Bilirubin [Mass/Vol] 0.20 mg/dL 0.20-1.00 [facility] Comment on above: For patients on eltr ombopag therapy, use of Dimension [place] TBIL is not recommended. Chloride [Moles/Vol] 106 mmol/L 98-107 [facility] Cholesterol [Mass/Vol] 256 mg/dL <200 [facility] Comment on above: <200 mg/dL Desirable 200-240 mg/dL Borderline >240 mg/dL High Risk Eosinophils/100 WBC (Bld) 2.0 % 0-5 [facility] Glucose [Mass/Vol] 106 mg/dL 74-106 [facility] Comment on above: Fasting Glucose resu lt from 100 to 125 mg/dL suggests IMPAIRED HOMEOSTASIS per A.D.A. criteria. Neutrophils (Bld) [#/Vol] 4.0 10*3/uL 2.0-7.7 [facility] Neutrophils/100 WBC (Bld) 57.8 % 47-70 [facility] Potassium [Moles/Vol] 4.3 mmol/L 3.5-5.1 [facility] Protein [Mass/Vol] 7.6 g/dL 6.4-8.2 [facility] Sodium [Moles/Vol] 141 mmol/L 136-145 [facility] Triglyceride [Mass/Vol] 352 mg/dL <199 [facility] Comment on above: The drugs N-Acetylcy steine and Metamizole may falsely depress this assay.Serum Triglycerides Reference Interval Normal <150 mg/dL Borderline high 150 - 199 mg/dL High 200 - 499 mg/dL Very High > or = 500 mg/dL WBC (Bld) [#/Vol] 6.9 10*3/uL 4.4-11.0 [facility] Blood erythrocytes count (nu mber/volume)Ordered By: Dr. Valadez on 04-11-2022 RBC (Bld) [#/Vol] 4.97 10*6/uL 4.6-6.2 [facility] Blood hemoglobin measurement (mass/volume)Ordered By: Dr. Valadez on 04-11-2022 Hemoglobin (Bld) [Mass/Vol] 14.7 g/dL 13.0-16.5 [facility] Blood lymphocytes/100 leukoc ytesOrdered By: Dr. Valadez on 04-11-2022 Lymphocytes/100 WBC (Bld) 31.5 % 19-41 [facility] Blood monocytes/100 leukocyt esOrdered By: Dr. Valadez on 04-11-2022 Monocytes/100 WBC (Bld) 7.9 % 0-10 [facility] Blood platelet mean volumeOr dered By: Dr. Valadez on 04-11-2022 Platelet mean volume (Bld) [Entitic vol] 11.7 fL 6.2-12.0 [facility] Determination of erythrocyte mean corpuscular volume (MCV)Ordered By: Dr. Valadez on 04-11-2022 MCV (RBC) [Entitic vol] 88.3 fL 80-94 [facility] Hematocrit Auto (Bld) [Volum e fraction]Ordered By: Dr. Valadez on 04-11-2022 Hematocrit (Bld) [Volume fraction] 43.9 % 40-54 [facility] Laboratory - Chemistry and C hemistry - challengeOrdered By: Dr. Valadez on 04-11-2022 ALP [Catalytic activity/Vol] 37 U/L 45-117 [facility] ALT [Catalytic activity/Vol] 36 U/L 16-61 [facility] CO2 [Moles/Vol] 30.0 mmol/L 21.0-32.0 [facility] Free T4 [Mass/Vol] 0.72 ng/dL 0.76-1.46 [facility] Globulin (S) [Mass/Vol] 3.7 g/dL 2.2-4.2 [facility] Urea nitrogen/Creatinine [Mass ratio] 15.8 mg/mg 10-20 [facility] Laboratory - Hematology and Cell countsOrdered By: Dr. Valadez on 04-11-2022 Erythrocyte distribution width (RBC) [Entitic vol] 41.3 fL 35.1-43.9 [facility] Erythrocyte distribution width (RBC) [Ratio] 12.7 % 11.6-14.6 [facility] Immature granulocytes/100 WBC (Bld) 0.400 % 0.0-0.9 [facility] Comment on above: IG% - Immature Granu locytes (promyelocytes, myelocytes and metamyelocytes) > 1% indicates that a LEFT SHIFT is Present. MCH (RBC) [Entitic mass] 29.6 pg 27.0-32.0 [facility] Nucleated RBC/100 WBC (Bld) [Ratio] 0 % 0-5 [facility] MCHC Auto (RBC) [Mass/Vol]Or dered By: Dr. Valadez on 04-11-2022 MCHC (RBC) [Mass/Vol] 33.5 g/dL 32-36 [facility] No Panel InformationOrdered By: Dr. Valadez on 04-11-2022 Estimated GFR (MDRD) Amer 101 mL/min >60 [facility] Comment on above: GFR Calc Estimated GFR (MDRD) Non-Af Amer 84 mL/min >60 [facility] Comment on above: Non- GFR Calc Free Triiodothyronine (T3) pg/dL 3.0 pg/mL 2.18-3.98 [facility] Prostate Specific Antigen Screen 1.05 ng/mL 0.00-4.00 [facility] Comment on above: This test was perfor med using the TPSA assay method for the[employer] chemistry system. Values obtained with differentassay methods cannot be used interchangably.When changing PSA assays in the course of monitoring apatient, additional sequential testing should be carriedout to confirm baseline values. Thyroid Stimulating Hormone (TSH) 0.59 uIU/mL 0.358-3.74 [facility] Vitamin D 25-Hydroxy 31.3 ng/mL [facility] Comment on above: Vitamin D 25(OH) Sta tus Range Deficiency <20 ng/mL (50nmol/L) Insufficiency 20 - 30 ng/mL (50 - 75 nmol/L) Sufficiency 30 - 100 ng/mL (75 - 250 nmol/L) Toxicity >100 ng/mL (>250 nmol/L) Platelets bldOrdered By: Dr. Valadez on 04-11-2022 Platelets (Bld) [#/Vol] 236 10*3/uL 150-450 [facility] Serum or plasma albumin lauren urement (mass/volume)Ordered By: Dr. Valadez on 04-11-2022 Albumin [Mass/Vol] 3.9 g/dL 3.2-5.0 [facility] Serum or plasma albumin/glob ulin mass ratioOrdered By: Dr. Valadez on 04-11-2022 Albumin/Globulin [Mass ratio] 1.1 {ratio} 0.9-2.4 [facility] Serum or plasma calcium lauren urement (mass/volume)Ordered By: Dr. Valadez on 04-11-2022 Calcium [Mass/Vol] 9.4 mg/dL 8.5-10.1 [facility] Serum or plasma cholesterol in HDL measurement (mass/volume)Ordered By: Dr. Valadez on 04-11-2022 Cholesterol in HDL [Mass/Vol] 51 mg/dL >40 [facility] Comment on above: The drugs N-Acetylcy steine and Metamizole may falsely depress this assay. Reference Range HDL <40 mg/dL Low HDL Cholesterol HDL >or= 60 mg/dL High HDL Cholesterol Serum or plasma cholesterol in VLDL measurement (mass/volume)Ordered By: Dr. Valadez on 04-11-2022 Cholesterol in VLDL [Mass/Vol] 70 mg/dL 5-40 [facility] Serum or plasma creatinine m easurement (mass/volume)Ordered By: Dr. Valadez on 04-11-2022 Creatinine [Mass/Vol] 1.01 mg/dL 0.70-1.30 [facility] Comment on above: The validity of the calculated GFR & GFRAA in patients over 70 years has not been determined. Clinical correlation is essential. Serum or plasma low density lipoprotein (LDL) cholesterol measurement (mass/volume)Ordered By: Dr. Valadez on 04-11-2022 Cholesterol in LDL [Mass/Vol] 135 mg/dL 0-130 [facility] Serum or plasma urea nitroge n measurement (mass/volume)Ordered By: Dr. Valadez on 04-11-2022 Urea nitrogen [Mass/Vol] 16 mg/dL 7-18 [facility] Thin prep Papanicolaou smear with manual screeningOrdered By: Dr. Valadez on 04-11-2022 Thin prep Papanicolaou smear with manual screening 21 U/L 15-37 [facility] Thin prep Papanicolaou smear with manual screening 5 5-15 [facility] ED NOTEon 03-10-2022 ED NOTE HNO ID: [id number] Author: Jonh Sanchez RN Service: Emergency Medicine Author Type: Registered Nurse Type: ED Notes Filed: 03/10/2022 1:54 AM Note Text: Patient discharge instructions given to patient, patient educated on discharge instructions. Patient denied having questions at this time regarding discharge instructions. Patient discharged home at this time. Patient ambulated out of the emergency department with a steady gait at this time. [facility] ED NOTE HNO ID: [id number] Author: Jonh Sanchez RN Service: Emergency Medicine Author Type: Registered Nurse Type: ED Notes Filed: 03/10/2022 1:49 AM Note Text: Bacitracin applied to wound, followed by non-adherent dressing, secured with tape. Metal finger splint sized and applied and secured with gauze dressing roll and tape. Patient educated on dressing. Patient able to move all fingers after dressing applied. [facility] ED NOTE HNO ID: [id number] Author: Jonh Sanchez RN Service: Emergency Medicine Author Type: Registered Nurse Type: ED Notes Filed: 03/10/2022 1:15 AM Note Text: Physician at bedside. [facility] ED NOTE HNO ID: [id number] Author: Jonh Sanchez RN Service: Emergency Medicine Author Type: Registered Nurse Type: ED Notes Filed: 03/10/2022 12:17 AM Note Text: Patient informed about the name of the medication(s), what the medication(s) is(are) for, and what to expect with/from med administration. Patient given opportunity to ask questions. Medication(s) include: Keflex, Bacitracin. [facility] ED NOTE HNO ID: [id number] Author: Jonh Sanchez RN Service: Emergency Medicine Author Type: Registered Nurse Type: ED Notes Filed: 03/10/2022 12:16 AM Note Text: Patient informed about the name of the medication(s), what the medication(s) is(are) for, and what to expect with/from med administration. Patient given opportunity to ask questions. Medication(s) include: Tranexamic Acid [facility] ED NOTE HNO ID: [id number] Author: Jonh Sanchez RN Service: Emergency Medicine Author Type: Registered Nurse Type: ED Notes Filed: 03/10/2022 1:53 AM Note Text: 46 y/o male presenting to the ED with complaint of left 5th digit bleeding from injury earlier tonight. Patient stated that he was using a metal hitch to flatten a piece of metal and hit finger accidentally got hit by the metal hitch piece. Patient reporting that there is a cut to his skin at the finger tip. Patient is alert and oriented x3 (person, place, and time). [facility] ED NOTE HNO ID: [id number] Author: Jonh Sanchez RN Service: Emergency Medicine Author Type: Registered Nurse Type: ED Notes Filed: 03/09/2022 10:45 PM Note Text: Patient informed about the name of the medication(s), what the medication(s) is(are) for, and what to expect with/from med administration. Patient given opportunity to ask questions. Medication(s) include: Lidocaine [facility] ED PROV NOTEon 03-10-2022 ED PROV NOTE HNO ID: [id number] Author: Ryan Salinas DO Service: Emergency Medicine Author Type: Physician Type: ED Provider Notes Filed: 03/10/2022 5:15 AM Note Text: ED Provider Note Patient Name: Alli Holland : 1975 SERVICE DATE: 03/09/22 History Patient presents with: Laceration: Left 5th Digit Alli Holland is a 46 year old male who presents with Laceration (Left 5th Digit). - Symptoms began 2 hours prior to arrival. - Severity: moderate - Timing: constant - Quality: sore - Laceration (Left 5th Digit) is exacerbated by nothing. - Laceration (Left 5th Digit) is not exacerbated by anything. - Symptoms are associated with left fifth finger pain - Symptoms are not associated with numbness, weakness. Patient presents with left fifth finger injury. He states that he was trying to flatten a piece of metal with a hitch and accidentally hit his left fifth finger instead. He states this happened 2 hours ago. He denies any numbness or weakness. He notes a laceration to the finger. He states his Tdap is up-to-date. He is right-hand dominant. PAST MEDICAL HISTORY Diagnosis Date Calculus of kidney Depressive disorder, not elsewhere classified PAST SURGICAL HISTORY Procedure Laterality Date RPR 1ST INGUN HRNA AGE 3 YRS/> REDUCIBLE 1979 Hernia repair, inguinal FAMILY HISTORY Problem Relation Age of Onset Genitourinary () Father kidney stones Arthritis Mother Social History Tobacco Use Smoking status: Former Packs/day: 1.00 Years: 8.00 Pack years: 8.00 Types: Cigarettes Smokeless tobacco: Not on file Substance and Sexual Activity Alcohol use: Yes Comment: "once in a while." Drug use: No Sexual activity: Yes Partners: Female ALLERGIES No Known Allergies Review of Systems Constitutional: Negative for chills and fever. Musculoskeletal: Positive for arthralgias (Left fifth finger). Negative for joint swelling. Skin: Positive for wound (Left fifth finger). Negative for color change and pallor. Neurological: Negative for weakness and numbness. Psychiatric/Behavior al: Negative for agitation and confusion. Physical Exam Vitals [03/09/227] BP Pulse Temp Temp src Resp SpO2 Weight Height 144/90 55 36.9 ?C (98.4 ?F) Temporal 18 98 % 99.8 kg (220 lb) 1.803 m (5' 11") Physical Exam Vitals and nursing note reviewed. Constitutional: General: He is not in acute distress. Appearance: He is not ill-appearing, toxic-appearing or diaphoretic. HENT: Head: Normocephalic. Eyes: Conjunctiva/sclera: Conjunctivae normal. Cardiovascular: Rate and Rhythm: Normal rate and regular rhythm. Pulses: Normal pulses. Pulmonary: Effort: Pulmonary effort is normal. Breath sounds: Normal breath sounds. Musculoskeletal: Left hand: Laceration (Left fifth finger), tenderness (Distal left fifth finger) and bony tenderness (Distal left fifth finger) present. No swelling or deformity. Normal range of motion. Normal strength. Normal sensation. Normal capillary refill. Normal pulse. Comments: Left fifth finger: There is a 2 cm laceration along the dorsum of the distal finger medial to the fingernail with partial soft tissue/skin avulsion. Full range of motion of the DIP, PIP, MCP joint. Normal capillary refill to the finger. Sensation intact to the finger. Fingernail intact. Skin: General: Skin is warm and dry. Capillary Refill: Capillary refill takes less than 2 seconds. Neurological: Mental Status: He is alert and oriented to person, place, and time. GCS: GCS eye subscore is 4. GCS verbal subscore is 5. GCS motor subscore is 6. Psychiatric: Mood and Affect: Mood normal. Diagnostic Testing ED Labs Ordered and Reviewed - No data to display LAC REPAIR Date/Time: 03/09/2022 11:40 PM Performed by: Ryan Salinas DO Authorized by: Ryan Salinas DO Risks discussed: Infection, pain, retained foreign body, tendon damage, poor cosmetic result, need for additional repair, nerve damage, poor wound healing and vascular damage Alternatives discussed: Referral, observation, no treatment and delayed treatment Anesthesia (see MAR for exact dosages): Anesthesia method: Local infiltration Local anesthetic: Lidocaine 2% w/o epi Laceration details: Location: Finger Finger location: L small finger Length (cm): 2 (partial soft tissue/skin avulsion and laceration) Repair type: Repair type: Simple Pre-procedure details: Preparation: Patient was prepped and draped in usual sterile fashion Exploration: Hemostasis achieved with: Direct pressure and tourniquet Wound extent: no foreign body Treatment: Area cleansed with: Saline Amount of cleaning: Standard Irrigation solution: Sterile saline Irrigation method: Syringe Skin repair: Repair method: Sutures Suture size: 5-0 Suture material: Prolene Suture technique: Simple interrupted Number of sutures: 4 Approximation: Approxi (more content not included)... Normal [facility] XR DIGIT 3V FRONTAL/LAT/OBL LTon 03-10-2022 XR DIGIT 3V FRONTAL/LAT/OBL LT * * *Final Report* * * DATE OF EXAM: Mar 09 2022 11:03PM LDX [id number] - XR DIGIT 3V FRONTAL/LAT/OBL LT / PROCEDURE REASON: Hand trauma, no prior imaging * * * * Physician Interpretation * * * * EXAM: XR DIGIT 3V FRONTAL/LAT/OBL LT HISTORY: Hand trauma, no prior imaging COMPARISON: None available FINDINGS: There is a nondisplaced obliquely oriented fracture through the tuft of the pinky finger. No radiopaque foreign body. No subcutaneous gas. IMPRESSION: Nondisplaced left pinky finger tuft fracture. Therapy Administrative Assistant: ANUSHA Transcribe Date/Time: Mar 09 2022 11:34P Dictated by : ELSI LAUGHLIN MD This examination was interpreted and the report reviewed and electronically signed by: ELSI LAUGHLIN MD on Mar 09 2022 11:35PM EST [id number] Normal [facility] Primary Care Visit (Text/For ms)on 10-10-2019 Primary Care Visit (Text/Forms) Diagnoses/Problems Assessed Flu-like symptoms (780.99) (R68.89) Orders Flu-like symptoms MISCELLANEOUS TEST; Status:Active; Requested for:10Oct2019; Provider Impressions Provider Impressions Free Text Note Form: Plan as per orders Counseled pt on warning signs of when to present back to clinic earlier and/or ER Chief Complaint An interactive audio and video telecommunication system which permits real time communications between the patient (at the originating site) and provider (at the distant site) was utilized to provide this telehealth service. Verbal consent was requested and obtained from ALLI HOLLAND on this date, 10/10/2019 10:40 AM , for a telehealth visit. discuss antibody testing History of Present Illness Back in Jul 2019 pt states he had flu-like symptoms for about 10 days Symptoms resolved on their own He is concerned that he may have had COVID-19 back then - he would like antibody testing ordered No recent international or domestic travel No recent cruises Has not come into contact w/ known persons w/ COVID-19 Review of Systems Constitutional: no fever and no chills. Cardiovascular: no chest pain and no shortness of breath. Respiratory: no cough. Gastrointestinal: no nausea and no vomiting. Active Problems Problems Acquired complex cyst of kidney (593.2) (N28.1) Acute pain of right knee (719.46) (M25.561) Arthralgia of multiple sites (719.49) (M25.50) Cholelithiasis (574.20) (K80.20) Cholelithiasis with chronic cholecystitis (574.10) (K80.10) Chronic back pain (724.5,338.29) (M54.9,G89.29) DJD (degenerative joint disease), lumbar (721.3) (M47.816) Excessive thirst (783.5) (R63.1) Fatigue (780.79) (R53.83) Generalized anxiety disorder (300.02) (F41.1) Hypertriglyceridemia (272.1) (E78.1) Left elbow pain (719.42) (M25.522) MDD (major depressive disorder) (296.20) (F32.9) Mixed dyslipidemia (272.2) (E78.2) Nocturia (788.43) (R35.1) Polyphagia (783.6) (R63.2) Prediabetes (790.29) (R73.03) Primary osteoarthritis of right knee (715.16) (M17.11) Rash (782.1) (R21) Screen for colon cancer (V76.51) (Z12.11) Unprotected sex (V69.2) (Z72.51) Past Medical History Problems History of kidney stones (V13.01) (Z87.442) Surgical History Problems History of Cholecystectomy laparoscopic History of Cyst excision History of Inguinal hernia repair History of Tonsillectomy Family History Mother Family history of Rheumatoid arteritis Father Family history of depression (V17.0) (Z81.8) Family history of kidney stone (V18.69) (Z84.1) Social History Problems Denies alcohol consumption (V49.89) (Z78.9) Employed Feels safe at home Former smoker (V15.82) (Z87.891) No advance directives (V49.89) (Z78.9) No illicit drug use No recent foreign travel Unprotected sex (V69.2) (Z72.51) Current Meds Medication NameInstruction Acidophilus Oral CapsuleTAKE DIRECTED. buPROPion HCl ER (XL) 300 MG Oral Tablet Extended Release 24 HourTAKE 1 TABLET DAILY. Escitalopram Oxalate 20 MG Oral TabletTAKE 1 TABLET DAILY. Meloxicam 15 MG Oral TabletTAKE 1 TABLET DAILY NEEDED FOR PAIN. TAKE WITH FOOD AND 8 OZ OF WATER. Multiple Vitamins Oral TabletTAKE 1 TABLET DAILY. [place]-3 Fish Oil 1000 MG Oral CapsuleTAKE 1 CAPSULE Daily Turmeric 400 MG Oral CapsuleTAKE 1 CAPSULE Daily Vitamin B12 500 MCG Oral TabletTake 1 tablet daily Allergies Medication No Known Drug Allergies NonMedication No Known Environmental Allergies Physical Exam Constitutional - No acute distress. Head and Face - No visible facial rash. Pulmonary - No resp distress, able to speak full sentences. Cardiovascular - No visible edema. Neurologic - Alert, speech clear. Psychiatric - Cooperative. Signatures Electronically signed by : Yvon Man, ; Oct 10 2019 10:39AM EST (Author) Normal [employer] [facility]Con 09-02-2019 Erythrocyte distribution width (RBC) [Ratio] 13.8 % Normal 11.5 - 14.5 [facility] Comment on above: Performed By: #### C BC #### [address] [address] Hematocrit (Bld) [Volume fraction] 44.3 % Normal 41.0 - 52.0 [facility] Comment on above: Performed By: #### C BC #### [address] [address] Hemoglobin (Bld) [Mass/Vol] 15.1 g/dL Normal 13.5 - 17.5 [facility] Comment on above: Performed By: #### C BC #### [address] [address] MCHC (RBC) [Mass/Vol] 34.2 g/dL Normal 32.0 - 36.0 [facility] Comment on above: Performed By: #### C BC #### [place] [id number] MCV (RBC) [Entitic vol] 88 fL Normal 80 - 100 [facility] Comment on above: Performed By: #### C BC #### [place] [id number] Platelets (Bld) [#/Vol] 244 10*3/uL Normal 150 - 450 [facility] Comment on above: Performed By: #### C BC #### [place] [id number] RBC (Bld) [#/Vol] 5.04 x10E12/L Normal 4.50 - 5.90 [facility] Comment on above: Performed By: #### C BC #### [place] [id number] WBC (Bld) [#/Vol] 6.8 10*3/uL Normal 4.4 - 11.3 [facility] Comment on above: Performed By: #### C BC #### [place] [address] COMPREHENSIVE PANELon 2019 Albumin [Mass/Vol] 4.6 g/dL Normal 3.4 - 5.0 [facility] Comment on above: Performed By: #### C MP #### [place] [address] ALP [Catalytic activity/Vol] 36 U/L Normal 33 - 120 [facility] Comment on above: Performed By: #### C MP #### [place] [address] ALT [Catalytic activity/Vol] 40 U/L Normal 10 - 52 [facility] Comment on above: Result Comment: Ly ents treated with Sulfasalazine may generate falsely decreased results for ALT. Performed By: #### C MP #### [place] [id number] Anion gap [Moles/Vol] 12 mmol/L Normal 10 - 20 [facility] Comment on above: Performed By: #### C MP #### [place] [id number] AST [Catalytic activity/Vol] 24 U/L Normal 9 - 39 [facility] Comment on above: Performed By: #### C MP #### [address] [address] Bilirubin [Mass/Vol] 0.4 mg/dL Normal 0.0 - 1.2 [facility] Comment on above: Performed By: #### C MP #### [address] [address] Calcium [Mass/Vol] 9.9 mg/dL Normal 8.6 - 10.3 [facility] Comment on above: Performed By: #### C MP #### [address] [address] Chloride [Moles/Vol] 102 mmol/L Normal 98 - 107 [facility] Comment on above: Performed By: #### C MP #### [address] [address] Creatinine [Mass/Vol] 1.15 mg/dL Normal 0.50 - 1.30 [facility] Comment on above: Performed By: #### C MP #### [address] [address] GFR- AM. >60 Normal >60 [facility] Comment on above: Result Comment: CALC ULATIONS OF ESTIMATED GFR ARE PERFORMED USING THE MDRD STUDY EQUATION FOR THE IDMS-TRACEABLE CREATININE METHODS. CLIN CHEM 2007;53:766-72 Performed By: #### C MP #### [address] [address] GFR-NON AM. >60 Normal >60 [facility] Comment on above: Performed By: #### C MP #### [address] [address] Glucose [Mass/Vol] 96 mg/dL Normal 74 - 99 [facility] Comment on above: Performed By: #### C MP #### [address] [address] HCO3 (Bld) [Moles/Vol] 29 mmol/L Normal 21 - 32 [facility] Comment on above: Performed By: #### C MP #### [address] [address] Potassium [Moles/Vol] 3.9 mmol/L Normal 3.5 - 5.3 [facility] Comment on above: Performed By: #### C MP #### [address] [address] Protein [Mass/Vol] 7.4 g/dL Normal 6.4 - 8.2 [facility] Comment on above: Performed By: #### C MP #### [address] [address] Sodium [Moles/Vol] 139 mmol/L Normal 136 - 145 [facility] Comment on above: Performed By: #### C MP #### [address] [address] Urea nitrogen [Mass/Vol] 18 mg/dL Normal 6 - 23 [facility] Comment on above: Performed By: #### C MP #### [address] [address] HEMOGLOBIN A1Con 09-02-2019 HbA1c (Bld) [Mass fraction] 6.0 % Normal [facility] Comment on above: Result Comment: Diag nosis of Diabetes-Adults Non-Diabetic: < or = 5.6% Increased risk for developing diabetes: 5.7-6.4% Diagnostic of diabetes: > or = 6.5% . Monitoring of Diabetes Age (y) Therapeutic Goal (%) Adults: >18 <7.0 Pediatrics: 13-18 <7.5 7-12 <8.0 0- 6 7.5-8.5 [employer] [employer]. Diabetes Care 33(S1), Jun 2009. Performed By: #### H BA1E #### [address] [address] HbA1c (Bld) [Mass fraction] 126 MG/DL Normal [facility] Comment on above: Performed By: #### H BA1E #### [address] [address] TSHon 09-02-2019 TSH Qn 0.77 m[IU]/L Normal 0.44 - 3.98 [facility] Comment on above: Result Comment: Note new pediatric reference range as of 08/15/2019. TSH testing is performed using different testing methodology at [facility] than at other [facility]. Direct result comparisons should only be made within the same method. Performed By: #### T SH2 #### [facility] [address] [place] [address] HEPATITIS PANEL,ACUTE (HCFA) on 03-20-2019 HEP.B SURFACE AG NONREACTIVE Normal NONREACTIVE [facility] Comment on above: Result Comment: Ly ents receiving more than 5 mg/day of biotin may have interference in test results. A sample should be taken no sooner than eight hours after previous dose. Contact the testing laboratory for additional information. Performed By: #### H EPA2 #### [facility] [address] [place] [address] HEPATITIS A AB-IGM NON-REACTIVE Normal NONREACTIVE [facility] Comment on above: Result Comment: Ly ents receiving more than 5 mg/day of biotin may have interference in test results. A sample should be taken no sooner than eight hours after previous dose. Contact the testing laboratory for additional information. Performed By: #### H EPA2 #### [facility] [address] [place] [address] HEPATITIS B CORE AB,IGM NON-REACTIVE Normal NONREACTIV E [facility] Comment on above: Result Comment: Ly ents receiving more than 5 mg/day of biotin may have interference in test results. A sample should be taken no sooner than eight hours after previous dose. Contact the testing laboratory for additional information. Performed By: #### H EPA2 #### [facility] [address] [place] [address] HEPATITIS C AB NON-REACTIVE Normal NONREACTIVE [facility] Comment on above: Result Comment: Ly ents receiving more than 5 mg/day of biotin may have interference in test results. A sample should be taken no sooner than eight hours after previous dose. Contact the testing laboratory for additional information. Performed By: #### H EPA2 #### [facility] [address] [place] [address] SYPHILIS IGGon 03-20-2019 SYPHILIS IGG NON REACTIVE Normal NONREACTIVE [facility] Comment on above: Result Comment: Ly ents receiving more than 5 mg/day of biotin may have interference in test results. A sample should be taken no sooner than eight hours after previous dose. Contact [phone] for additional information. Performed By: #### S [facility] #### [facility] [address] [place] [address] GC + CHLAMYDIA BY AMPLIFIED DETECTIONon 03-19-2019 CHLAMYDIA TRACH.,AMPLIFIED NOT DETECTED Normal NOT DETECTED [facility] Comment on above: Performed By: #### G [facility] #### [place] [address] N.GONORRHEA,AMPLIFIED NOT DETECTED Normal NOT DETECTED [facility] Comment on above: Performed By: #### [facility] #### [place] [address] Lab Specimen Source Urine Normal [facility] Comment on above: Performed By: #### G [facility] #### [place] [id number] GC + Chlamydia By Amplified Detectionon 03-19-2019 C. trachomatis rRNA JACLYN+probe Ql (Unsp spec) NOT DETECTED See Below [facility] Work Phone: Comment on above: Reference Range: NOT DETECTED N. gonorrhoeae rRNA JACLYN+probe Ql (Unsp spec) NOT DETECTED See Below [facility] Work Phone: Comment on above: SOURCE: UrineReferen ce Range: NOT DETECTED HEPATITIS PANEL,ACUTE (HCFA) on 03-19-2019 Lab Specimen Source Normal [facility] Comment on above: Performed By: #### H EPA2 #### [facility] [address] [place] [address] Performed By: #### S YP #### [facility] [address] [place] [address] Hepatitis Panel, Acute (HCFA )on 03-19-2019 Hepatitis Panel, Acute (HCFA) NONREACTIVE See Below [facility] Work Phone: Comment on above: Reference Range: NON REACTIVE Patients receiving more than 5 mg/day of biotin may have interference in test results. A sample should be taken no sooner than eight hours after previous dose. Contact the testing laboratory for additional information. SOURCE: Reference Ra nge: NONREACTIVE HIV Ag/Ab screen is performed using the Siemens Advia Centaur HIV Ag/Ab Combo assay which detects the presence of HIV p24 antigen as well as antibodies to HIV-1 (Group M and O) and HIV-2. Hepatitis Panel, Acute (HCFA) NON-REACTIVE See Below [facility] Work Phone: Comment on above: Reference Range: NON REACTIVE Patients receiving more than 5 mg/day of biotin may have interference in test results. A sample should be taken no sooner than eight hours after previous dose. Contact the testing laboratory for additional information. SOURCE: Reference Ra nge: NONREACTIVE Patients receiving more than 5 mg/day of biotin may have interference in test results. A sample should be taken no sooner than eight hours after previous dose. Contact the testing laboratory for additional information. Otheron 03-19-2019 T. pallidum IgG IA Ql (S) NON REACTIVE See Below [facility] Work Phone: Comment on above: SOURCE: Reference Ra nge: NONREACTIVE Patients receiving more than 5 mg/day of biotin may have interference in test results. A sample should be taken no sooner than eight hours after previous dose. Contact [phone] for additional information. US Abdomen, Limitedon 2018 US Abdomen, Limited Exam Date/Time: 11/14/2018 08:47 EDT Reason for Exam: RUQ PAIN CHOLELITHIASIS ATTN: GB;RUQ Pain Report STUDY: US Abdomen, Limited; 11/14/2018 8:47 am INDICATION: RUQ Pain. COMPARISON: None. ACCESSION NUMBER(S): [id number] ORDERING CLINICIAN: Yvon Man TECHNIQUE: Multiple grayscale ultrasonographic images were obtained through the right upper quadrant. FINDINGS: LIVER: There is diffuse hyperechogenicity of the liver, most consistent with fatty infiltration. A cyst is seen in the right lobe of the liver, measuring up to 5 mm in diameter.. GALLBLADDER: Layering gallstones are seen dependently in the gallbladder. The gallbladder is nondilated without evidence of wall thickening or pericholecystic fluid. No ultrasonographic Foley's sign was elicited. BILIARY TREE: There is no significant intra or extrahepatic biliary dilatation present, with the common bile duct measuring at up to 3 mm PANCREAS: The visualized portions of the pancreas are within normal limits, without evidence of focal masses. RIGHT KIDNEY: Screening evaluation of the right kidney demonstrates no evidence of hydronephrosis. IMPRESSION: 1. No ultrasonographic evidence of acute cholecystitis or biliary dilatation. 2. Small gallstones within the gallbladder. Exam Date/Time: 11/14/2018 08:47 EDT Report 3. Diffuse hyper echogenicity of the liver, most consistent with fatty infiltration. FINAL REPORT Dictated: 11/14/2018 12:55 pm Rayray Mooney MD Signed (Electronic Signature): 11/14/2018 12:55 pm Signed by: Rayray Mooney MD Technologist: MIGUEL ANGEL Normal [facility] Auto Diffon 11-13-2018 Basophils (Bld) [#/Vol] 0.0 E3/mcL Normal 0.0-0.2 [facility] Comment on above: Order Comment: Order Added by Discern Expert. Performed By: #### 2 [id number] #### [facility] [address] [place] [address] Basophils/100 WBC (Bld) 0.3 % Normal 0.0-2.0 [facility] Comment on above: Order Comment: Order Added by Discern Expert. Performed By: #### 2 [id number] #### [facility] [address] [place] [address] Eos Absolute 0.2 E3/mcL Normal 0.0-0.7 [facility] Comment on above: Order Comment: Order Added by Discern Expert. Performed By: #### 2 [id number] #### [facility] [address] [place] [address] Eosinophils/100 WBC (Bld) 2.3 % Normal 0.0-11.0 [facility] Comment on above: Order Comment: Order Added by Discern Expert. Performed By: #### 2 [id number] #### KINGSLEY [facility] [address] [place] [address] Lymphocytes (Bld) [#/Vol] 2.0 E3/mcL Normal 1.2-3.4 [facility] Comment on above: Order Comment: Order Added by Discern Expert. Performed By: #### 2 [id number] #### KINGSLEY [employer] [address] [place] [address] Lymphocytes/100 WBC (Bld) 27.5 % Normal 20.0-55.0 [facility] Comment on above: Order Comment: Order Added by Discern Expert. Performed By: #### 2 [id number] #### KINGSLEY [employer] [address] [place] [address] [place] Absolute 0.5 E3/mcL Normal 0.0-0.7 [facility] Comment on above: Order Comment: Order Added by Discern Expert. Performed By: #### 2 [id number] #### KINGSLEY [employer] [address] [place] [address] Monocytes/100 WBC (Bld) 6.7 % Normal 0.0-10.0 [facility] Comment on above: Order Comment: Order Added by Discern Expert. Performed By: #### 2 [id number] #### KINGSLEY [employer] [address] [place] [address] Neutro Absolute 4.6 E3/mcL Normal 1.4-6.5 [facility] Comment on above: Order Comment: Order Added by Discern Expert. Performed By: #### 2 [id number] #### KINGSLEY [employer] [address] [place] [address]88 Neutro Auto 63.2 % Normal 37.0-75.0 [facility] Comment on above: Order Comment: Order Added by Discern Expert. Performed By: #### 2 [id number] #### KINGSLEY [employer] [address] [place] [address] CBC w/ Auto Diffon 9 Erythrocyte distribution width (RBC) [Ratio] 13.6 % Normal 11.5-14.5 [facility] Comment on above: Performed By: #### 2 [id number] #### KINGSLEY [employer] [address] [place] [address] Hematocrit (Bld) [Volume fraction] 43.4 % Normal 42.0-52.0 [facility] Comment on above: Performed By: #### 2 [id number] #### KINGSLEY [employer] [address] [place] [address] Hemoglobin (Bld) [Mass/Vol] 14.6 g/dL Normal 13.5-18.0 [facility] Comment on above: Performed By: #### 2 [id number] #### KINGSLEY [employer] [address] [place] [address] MCH (RBC) [Entitic mass] 29.6 pg Normal 27.0-31.0 [facility] Comment on above: Performed By: #### 2 [id number] #### KINGSLEY [employer] [address] [place] [address] MCHC (RBC) [Mass/Vol] 33.6 g/dL Normal 33.0-37.[address] [facility] Comment on above: Performed By: #### 2 850352 #### KINGSLEY [employer] [address] [place] [address] MCV (RBC) [Entitic vol] 88.2 fL Normal 78.0-100.0 [facility] Comment on above: Performed By: #### 2 [id number] #### KINGSLEY [employer] [address] [place] [address] Platelet mean volume (Bld) [Entitic vol] 10.6 fL Normal 7.4-11.0 [facility] Comment on above: Performed By: #### 2 [id number] #### KINGLSEY [facility] [address] [place] [address] Platelets (Bld) [#/Vol] 224 E3/mcL Normal 130-400 [facility] Comment on above: Performed By: #### 2 949725 #### KINGSLEY [employer] [address] [place] [address] RBC (Bld) [#/Vol] 4.92 E6/mcL Normal 3.90-6.10 [facility] Comment on above: Performed By: #### 2 [id number] #### KINGSLEY [employer] [address] [place] [address] WBC (Bld) [#/Vol] 7.3 E3/mcL Normal 3.6-11.0 [facility] Comment on above: Performed By: #### 2 [id number] #### KINGSLEY [facility] [address] [place] [address] CMPon 11-13-2018 Albumin [Mass/Vol] 4.1 g/dL Normal 3.4-5.0 [facility] Comment on above: Performed By: #### 2 798555 #### KINGSLEY [facility] [address] [place] [address] Albumin/Globulin [Mass ratio] 1.5 {ratio} Normal 1.1-1.9 [facility] Comment on above: Performed By: #### 2 689379 #### KINGSLEY [employer] [address] [place] [address] Alk Phos 40 Int._Unit/L Normal 33-120 [facility] Comment on above: Performed By: #### 2 755359 #### KINGSLEY [facility] [address] [place] [address] ALT [Catalytic activity/Vol] 29 Int._Unit/L Normal 10-52 [facility] Comment on above: Performed By: #### 2 [id number] #### KINGSLEY [facility] [address] [place] [address] Anion gap [Moles/Vol] 11 mmol/L Normal 10-[address] [facility] Comment on above: Performed By: #### 2 618414 #### KINGSLEY [facility] [address] [place] [address] AST [Catalytic activity/Vol] 20 Int._Unit/L Normal 9-39 [facility] Comment on above: Performed By: #### 2 [id number] #### KINGSLEY [facility] [address] [place] [address] Bili Total 0.29 mg/dL Normal 0.00-1.20 [facility] Comment on above: Performed By: #### 2 [id number] #### KINGSLEY [facility] [address] [place] [address] Calcium [Mass/Vol] 9.3 mg/dL Normal 8.6-10.3 [facility] Comment on above: Performed By: #### 2 074048 #### KINGSLEY [facility] [address] [place] [address] Chloride [Moles/Vol] 103 mmol/L Normal 98-107 [facility] Comment on above: Performed By: #### 2 870927 #### KINGSLEY [facility] [address] [place] [address] CO2 [Moles/Vol] 29.0 mmol/L Normal 21.0-32.0 [facility] Comment on above: Performed By: #### 2 596379 #### KINGSLEY Hall[facility] [address] [place] [address] Creatinine [Mass/Vol] 1.1 mg/dL Normal 0.5-1.[address] [facility] Comment on above: Performed By: #### 2 [id number] #### KINGSLEY Hall[facility] [address] [place] [address] Globulin (S) [Mass/Vol] 3.0 g/dL Normal 2.0-4.0 [facility] Comment on above: Performed By: #### 2 336027 #### KINGSLEY [facility] [address] [place] [address] Glucose [Mass/Vol] 117 mg/dL High 70-99 [facility] Comment on above: Performed By: #### 2 217016 #### KINGSLEY [facility] [address] [place] [address] Potassium [Moles/Vol] 3.8 mmol/L Normal 3.5-5.[address] [facility] Comment on above: Performed By: #### 2 101457 #### KINGSLEY Rem[facility] [address] [place] [address] Protein [Mass/Vol] 6.9 g/dL Normal 6.4-8.2 [facility] Comment on above: Performed By: #### 2 982826 #### KINGSLEY [facility] [address] [place] [address] Sodium [Moles/Vol] 139 mmol/L Normal 136-145 [facility] Comment on above: Performed By: #### 2 471489 #### KINGSLEY Rem[facility] [address] [place] [address] Urea nitrogen [Mass/Vol] 16 mg/dL Normal 6-23 [facility] Comment on above: Performed By: #### 2 239341 #### KINGSLEY Hall[facility] [address] [place] [address] Urea nitrogen/Creatinine [Mass ratio] 14.5 ratio Normal 5.4-30.0 [facility] Comment on above: Performed By: #### 2 715581 #### KINGSLEY Hall[facility] [address] [place] [address] eGFRon 11-13-2018 GFR/1.73 sq M predicted among non-blacks MDRD (S/P/Bld) [Vol rate/Area] mL/min/{1.73_m2} Normal [facility] Comment on above: Order Comment: Order added by Discern Expert. Performed By: #### 2 [id number] #### KINGSLEY Hall[facility]emo [facility] [place] [address] US Renalon 10-25-2018 US Renal Exam Date/Time: 10/25/2018 09:10 EDT Reason for Exam: COMPLEX RENAL CYST;Other (please specify) Report STUDY: US Renal; 10/25/2018 9:10 am INDICATION: Other (please specify). Follow-up complex cyst COMPARISON: 07/09/2018 ACCESSION NUMBER(S): [id number] ORDERING CLINICIAN: Yvon Man TECHNIQUE: Multiple images of the kidneys were obtained . FINDINGS: RIGHT KIDNEY: The right kidney measures 11.6 cm in longitudinal dimension. There is no solid mass or hydronephrosis or cortical echogenicity or perinephric fluid. LEFT KIDNEY: The left kidney measures 12 cm in longitudinal dimension. There is no solid mass or hydronephrosis or perinephric fluid. Projecting from the lower left renal pole, there is a mildly complex cyst measuring 78 x 72 x 63 mm. It is unchanged in size or appearance compared to the prior exam. A smaller interpolar cyst with more simple cystic characteristics measuring 8 mm is unchanged from the prior. The BLADDER: Unremarkable with no significant postvoid residual and normal ureter jets IMPRESSION: Stable findings when compared to the prior exam as discussed above FINAL REPORT Dictated: 10/25/2018 9:55 am Patric Bee MD Signed (Electronic Signature): 10/25/2018 9:55 am Signed by: Patric Bee MD Technologist: EH Normal [facility] Auto Diffon 10-01-2018 Basophils (Bld) [#/Vol] 0.0 E3/mcL Normal 0.0-0.2 [facility] Comment on above: Order Comment: Order Added by Discern Expert. Performed By: #### 2 [id number] #### KINGSLEY [facility] [address] [place] [address] Basophils/100 WBC (Bld) 0.3 % Normal 0.0-2.0 [facility] Comment on above: Order Comment: Order Added by Discern Expert. Performed By: #### 2 [id number] #### KINGSLEY [facility] [address] [place] [address] Eos Absolute 0.1 E3/mcL Normal 0.0-0.7 [facility] Comment on above: Order Comment: Order Added by Falguni Expert. Performed By: #### 2 [id number] #### KINGSLEY [facility] [address] [place] [address] Eosinophils/100 WBC (Bld) 2.0 % Normal 0.0-11.0 [facility] Comment on above: Order Comment: Order Added by Falguni Expert. Performed By: #### 2 195036 #### KINGSLEY Rem[facility] [address] [place] [address] Lymphocytes (Bld) [#/Vol] 1.6 E3/mcL Normal 1.2-3.4 [facility] Comment on above: Order Comment: Order Added by Falguni Expert. Performed By: #### 2 391831 #### KINGSLEY Rem[facility]emo [address] [place] [address] Lymphocytes/100 WBC (Bld) 27.5 % Normal 20.0-55.0 [facility] Comment on above: Order Comment: Order Added by Discern Expert. Performed By: #### 2 537999 #### KINGSLEY Rem[facility] [address] [place] [address] [place] Absolute 0.4 E3/mcL Normal 0.0-0.7 [facility] Comment on above: Order Comment: Order Added by Falguni Expert. Performed By: #### 2 785855 #### KINGSLEY Rem[facility] [address] [place] [address] Monocytes/100 WBC (Bld) 7.4 % Normal 0.0-10.0 [facility] Comment on above: Order Comment: Order Added by Discern Expert. Performed By: #### 2 [id number] #### KINGSLEY Rem[facility] [address] [place] [address] Neutro Absolute 3.6 E3/mcL Normal 1.4-6.5 [facility] Comment on above: Order Comment: Order Added by Discern Expert. Performed By: #### 2 397986 #### KINGSLEY Rem[facility] [address] [place] [address] Neutro Auto 62.8 % Normal 37.0-75.0 [facility] Comment on above: Order Comment: Order Added by Discern Expert. Performed By: #### 2 008112 #### KINGSLEY Rem[facility] [address] [place] [address] CBC w/ Auto Diffon 9 Erythrocyte distribution width (RBC) [Ratio] 13.5 % Normal 11.5-14.5 [facility] Comment on above: Performed By: #### 2 [id number] #### KINGSLEY [facility] [address] [place] [address] Hematocrit (Bld) [Volume fraction] 43.8 % Normal 42.0-52.0 [facility] Comment on above: Performed By: #### 2 181175 #### KINGSLEY Rem[facility] [address] [place] [address] Hemoglobin (Bld) [Mass/Vol] 14.7 g/dL Normal 13.5-18.0 [facility] Comment on above: Performed By: #### 2 095277 #### KINGSLEY [facility] [address] [place] [address] MCH (RBC) [Entitic mass] 29.7 pg Normal 27.0-31.0 [facility] Comment on above: Performed By: #### 2 997789 #### KINGSLEY [facility] [address] [place] [address] MCHC (RBC) [Mass/Vol] 33.5 g/dL Normal 33.0-37.[address] [facility] Comment on above: Performed By: #### 2 925358 #### KINGSLEY Rem[facility] [address] [place] [address] MCV (RBC) [Entitic vol] 88.6 fL Normal 78.0-100.0 [facility] Comment on above: Performed By: #### 2 285999 #### KINGSLEY Rem[facility]emo [address] [place] [address] Platelet mean volume (Bld) [Entitic vol] 10.5 fL Normal 7.4-11.0 [facility] Comment on above: Performed By: #### 2 972593 #### KINGSLEY [facility] [address] [place] [address] Platelets (Bld) [#/Vol] 203 E3/mcL Normal 130-400 [facility] Comment on above: Performed By: #### 2 [id number] #### KINGSLEY [facility] [address] [place] [address] RBC (Bld) [#/Vol] 4.95 E6/mcL Normal 3.90-6.10 [facility] Comment on above: Performed By: #### 2 544288 #### KINGSLEY [facility] [address] [place] [address] WBC (Bld) [#/Vol] 5.8 E3/mcL Normal 3.6-11.0 [facility] Comment on above: Performed By: #### 2 303958 #### KINGSLEY Rem[facility] [address] [place] [address] CMPon 10-01-2018 Albumin [Mass/Vol] 4.4 g/dL Normal 3.4-5.0 [facility] Comment on above: Performed By: #### 2 057328 #### KINGSLEY [employer] [address] [place] [address] Albumin/Globulin [Mass ratio] 1.8 {ratio} Normal 1.1-1.9 [facility] Comment on above: Performed By: #### 2 602384 #### KINGSLEY [employer] [address] [place] [address] Alk Phos 37 Int._Unit/L Normal 33-120 [facility] Comment on above: Performed By: #### 2 [id number] #### KINGSLEY [employer] [address] [place] [address] ALT [Catalytic activity/Vol] 33 Int._Unit/L Normal 10-52 [facility] Comment on above: Performed By: #### 2 [id number] #### KINGSLEY [employer] [address] [place] [address] Anion gap [Moles/Vol] 9 mmol/L Low 10-[address] [facility] Comment on above: Performed By: #### 2 [id number] #### KINGSLEY [employer] [address] [place] [address] AST [Catalytic activity/Vol] 21 Int._Unit/L Normal 9-39 [facility] Comment on above: Performed By: #### 2 [id number] #### [facility] [employer] [address] [place] [address] Bili Total 0.31 mg/dL Normal 0.00-1.20 [facility] Comment on above: Performed By: #### 2 104906 #### [facility] [employer] [address] [place] [address] Calcium [Mass/Vol] 9.4 mg/dL Normal 8.6-10.3 [facility] Comment on above: Performed By: #### 2 408697 #### [facility] [employer] [address] [place] [address] Chloride [Moles/Vol] 102 mmol/L Normal 98-107 [facility] Comment on above: Performed By: #### 2 159384 #### KINGSLEY [employer] [address] [place] [address] CO2 [Moles/Vol] 32.0 mmol/L Normal 21.0-32.0 [facility] Comment on above: Performed By: #### 2 312449 #### KINGSLEY [employer] [address] [place] [address] Creatinine [Mass/Vol] 1.0 mg/dL Normal 0.5-1.[address] [facility] Comment on above: Performed By: #### 2 [id number] #### KINGSLEY [employer] [address] [place] [address] Globulin (S) [Mass/Vol] 3.0 g/dL Normal 2.0-4.0 [facility] Comment on above: Performed By: #### 2 985894 #### KINGSLEY [employer] [address] [place] [address] Glucose [Mass/Vol] 98 mg/dL Normal 70-99 [facility] Comment on above: Performed By: #### 2 728061 #### KINGSLEY [employer] [address] [place] [address] Potassium [Moles/Vol] 4.1 mmol/L Normal 3.5-5.[address] [facility] Comment on above: Performed By: #### 2 447054 #### KINGSLEY [employer] [address] [place] [address] Protein [Mass/Vol] 6.9 g/dL Normal 6.4-8.2 [facility] Comment on above: Performed By: #### 2 711183 #### KINGSLEY [employer] [address] [place] [address] Sodium [Moles/Vol] 139 mmol/L Normal 136-145 [facility] Comment on above: Performed By: #### 2 169108 #### KINGSLEY [employer] [address] [place] [address] Urea nitrogen [Mass/Vol] 16 mg/dL Normal 6-23 [facility] Comment on above: Performed By: #### 2 405332 #### KINGSLEY [employer] [address] [place] [address] Urea nitrogen/Creatinine [Mass ratio] 16.0 ratio Normal 5.4-30.0 [facility] Comment on above: Performed By: #### 2 616301 #### KINGSLEY [employer] [address] [place] [address] Lipid Profileon 10-01-2018 Cholesterol [Mass/Vol] 249 mg/dL High 0-199 [facility] Comment on above: Result Comment: TOTA L CHOLEESTEROL: <200 NORMAL 200 - 239 BORDERLINE HIGH >240 HIGH Performed By: #### 3 [id number] #### KINGSLEY [employer] [address] [place] [address] Cholesterol in HDL [Mass/Vol] 48 mg/dL Normal 40-60 [facility] Comment on above: Performed By: #### 3 [id number] #### KINGSLEY [employer] [address] [place] [address] Cholesterol in LDL [Mass/Vol] 121 mg/dL Normal 0-130 [facility] Comment on above: Result Comment: <100 OPTIMAL 100-129 NEAR / ABOVE OPTIMAL 130-159 BORDERLINE HIGH 160-189 HIGH >190 VERY HIGH CALC LDL NOT VALID WHEN TRIGLYCERIDE IS >400 MG/DL Performed By: #### 3 [id number] #### KINGSLEY [employer] [facility] [place] [address] Cholesterol in VLDL [Mass/Vol] 80 mg/dL High 0-40 [facility] Comment on above: Performed By: #### 3 [id number] #### KINGSLEY [employer] [facility] [place] [address] Triglyceride [Mass/Vol] 402 mg/dL High 0-149 [facility] Comment on above: Result Comment: AGE DESIRABLE BORDERLINE HIGH 91 D - 9 Y 0 - 74 75 - 99 > 100 10 - 19 Y 0 - 89 90 - 129 > 130 20 -24 Y 0 - 114 115 - 149 > 150 > 25 0 - 149 150 - 199 200 - 499 Performed By: #### 3 [id number] #### KINGSLEY [employer] [address] [place] [address] PSA Totalon 10-01-2018 PSA Total 0.76 ng/mL Normal [facility] Comment on above: Result Comment: AGE- SPECIFIC REFERENCE RANGES FOR SERUM PSA REFERENCE RANGE NG/ML AGE ASIANS BLACKS WHITE 40-49 0-2 0-2 0-2.5 50-59 0-3 0-4 0-3.5 60-69 0-4 0-4.5 0-4.5 70-79 0-5 0-5.5 0-6.5 PSA INCREASES WITH AGE, RACE, AND EJACULATION WITHIN 48 HRS. [facility] VOL24,NO.2, , PG.339 Performed By: #### 1 [id number] #### KINGSLEY [employer] [address] [place] [address] TSHon 10-01-2018 TSH Qn 0.93 mcIU/mL Normal 0.30-5.60 [facility] Comment on above: Performed By: #### 2 [id number] #### KINGSLEY [employer] [address] [place] [address] eGFRon 10-01-2018 GFR/1.73 sq M predicted among non-blacks MDRD (S/P/Bld) [Vol rate/Area] mL/min/{1.73_m2} [facility] Comment on above: Order Comment: Order added by Discern Expert. Performed By: #### 1 [id number] #### KINGSLEY [employer] [address] [place] [address] US Renalon 07-10-2018 US Renal Exam Date/Time: 07/09/2018 15:20 EST Reason for Exam: CYST OF LEFT KIDNEY;Other (please specify) Report STUDY: US Renal; 07/09/2018 3:20 pm INDICATION: Other (please specify). COMPARISON: 01/11/2018 ACCESSION NUMBER(S): [id number] ORDERING CLINICIAN: Yvon Man TECHNIQUE: Multiple images of the kidneys were obtained . FINDINGS: RIGHT KIDNEY: Right kidney measures approximately 11.1 cm. Small nonobstructing stone in the lower pole of the right kidney. The right kidney is normal in size, contour and echotexture. There is no hydronephrosis. LEFT KIDNEY: Left kidney measures approximately 11.4 cm. There is a large complex cyst in the lower pole measuring 7.1 x 7.3 x 6.5 cm. There are internal echoes within the cyst. No evidence of solid component seen on this study. There is no interval change in comparison to CT exam from 01/11/2018. There is a midpole simple cyst measuring 0.9 x 0.8 x 0.8 cm. Left kidney is otherwise negative. There is no hydronephrosis. BLADDER: The urinary bladder is collapsed and could not be evaluated. The prostate gland is mildly enlarged. IMPRESSION: Complex cyst in the lower pole of the left kidney with a simple left midpole cyst. There is no hydronephrosis bilaterally. FINAL REPORT Dictated: 07/10/2018 7:55 am Moises Finnegan MD Signed (Electronic Signature): 07/10/2018 7:55 am Signed by: Moises Finnegan MD Technologist: GARY [facility] Vital Signs Date Time Vital Sign Value Performing Clinician Lissi jennifer 12-11-2024 08:59-0400 Body height 177.[address] Billy Bird Work Phone: [facility] 12-11-2024 08:59-0400 Body mass index (BMI) [Ratio] 34.3 kg/m2 Dr. Billy Valadez MD Work Phone: [facility] 12-11-2024 08:59-0400 Body temperature 98 [degF] Dr. Billy Bird Work Phone: [facility] 12-11-2024 08:59-0400 Body weight 108.[address] Billy Bird Work Phone: [facility] 12-11-2024 08:59-0400 Diastolic blood pressure 83 mm[Hg] Dr. Billy Valadez MD Work Phone: [facility] 12-11-2024 08:59-0400 Heart rate 58 /min Dr. Billy Bird Work Phone: [facility] 12-11-2024 08:59-0400 Respiratory rate 16 /min Dr. Billy Bird Work Phone: [facility] 12-11-2024 08:59-0400 SaO2% (BldA) [Mass fraction] 94 % Dr. Billy Valadez MD Work Phone: [facility] 12-11-2024 08:59-0400 Systolic blood pressure 123 mm[Hg] Dr. Billy Valadez MD Work Phone: [facility] 10-07-2024 17:41-0400 Body mass index (BMI) [Ratio] 33 kg/m2 Dr. Billy Valadez MD Work Phone: [facility] 10-07-2024 17:41-0400 Body temperature 98 [degF] Dr. Billy Bird Work Phone: [facility] 10-07-2024 17:41-0400 Body weight 104.[address] Billy Bird Work Phone: [facility] 10-07-2024 17:41-0400 Diastolic blood pressure 82 mm[Hg] Dr. Billy Valadez MD Work Phone: [facility] 10-07-2024 17:41-0400 Heart rate 64 /min Dr. Billy Bird Work Phone: [facility] 10-07-2024 17:41-0400 Respiratory rate 14 /min Dr. Billy Bird Work Phone: [facility] 10-07-2024 17:41-0400 Systolic blood pressure 114 mm[Hg] Dr. Billy Valadez MD Work Phone: [facility] 08-03-2023 14:07-0500 Body height 177.[address] Billy Valadez Work Phone: [facility] 08-03-2023 14:07-0500 Body mass index (BMI) [Ratio] 35.9 kg/m2 Dr. Billy Valadez Work Phone: [facility] 08-03-2023 14:07-0500 Body temperature 98 [degF] Dr. Billy Valadez Work Phone: [facility] 08-03-2023 14:07-0500 Body weight 113.[address] Billy Valadez Work Phone: [facility] 08-03-2023 14:07-0500 Diastolic blood pressure 79 mm[Hg] Dr. Billy Valadez Work Phone: [facility] 08-03-2023 14:07-0500 Heart rate 87 /min Dr. Billy Valadez Work Phone: [facility] 08-03-2023 14:07-0500 Respiratory rate 16 /min Dr. Billy Valadez Work Phone: [facility] 08-03-2023 14:07-0500 SaO2% (BldA) [Mass fraction] 94 % Dr. Billy Valadez Work Phone: [facility] 08-03-2023 14:07-0500 Systolic blood pressure 123 mm[Hg] Dr. Billy Valadez Work Phone: [facility] 10-10-2022 10:33-0400 Body height 177.[address] Billy Valadez Work Phone: [facility] 10-10-2022 10:33-0400 Body mass index (BMI) [Ratio] 35.2 kg/m2 Dr. Billy Valadez Work Phone: [facility] 10-10-2022 10:33-0400 Body temperature 98.4 [degF] Dr. Billy Valadez Work Phone: [facility] 10-10-2022 10:33-0400 Body weight 111.[address] Billy Valadez Work Phone: [facility] 10-10-2022 10:33-0400 Diastolic blood pressure 82 mm[Hg] Dr. Billy Valadez Work Phone: [facility] 10-10-2022 10:33-0400 Heart rate 75 /min Dr. Billy Valadez Work Phone: [facility] 10-10-2022 10:33-0400 Respiratory rate 16 /min Dr. Billy Valadez Work Phone: [facility] [facility] 10-10-2022 10:33-0400 SaO2% (BldA) [Mass fraction] 95 % Dr. Billy Valadez Work Phone: [facility] 10-10-2022 10:33-0400 Systolic blood pressure 130 mm[Hg] Dr. Billy Valadez Work Phone: [facility] 06-23-2022 13:32-0500 Body temperature 98.1 [degF] Dr. Billy Valadez Work Phone: [facility] 06-23-2022 13:32-0500 Body weight 108.[address] Billy Valadez Work Phone: [facility] 06-23-2022 13:32-0500 Diastolic blood pressure 77 mm[Hg] Dr. Billy Valadez Work Phone: [facility] 06-23-2022 13:32-0500 Heart rate 66 /min Dr. Billy Valadez Work Phone: [facility] 06-23-2022 13:32-0500 Respiratory rate 16 /min Dr. Billy Valadez Work Phone: [facility] 06-23-2022 13:32-0500 SaO2% (BldA) [Mass fraction] 95 % Dr. Billy Valadez Work Phone: [facility] 06-23-2022 13:32-0500 Systolic blood pressure 125 mm[Hg] Dr. Billy Valadez Work Phone: [facility] 04-11-2022 09:49-0400 Body temperature 97.6 [degF] Dr. Billy Valadez Work Phone: [facility] 04-11-2022 09:49-0400 Body weight 108.[address] Billy Valadez Work Phone: [facility] 04-11-2022 09:49-0400 Diastolic blood pressure 81 mm[Hg] Dr. Billy Valadez Work Phone: [facility] 04-11-2022 09:49-0400 Heart rate 71 /min Dr. Billy Valadez Work Phone: [facility] 04-11-2022 09:49-0400 Respiratory rate 16 /min Dr. Billy Valadez Work Phone: [facility] 04-11-2022 09:49-0400 SaO2% (BldA) [Mass fraction] 94 % Dr. Billy Valadez Work Phone: [facility] 04-11-2022 09:49-0400 Systolic blood pressure 123 mm[Hg] Dr. Billy Valadez Work Phone: [facility] 03-19-2019 11:49-0400 BMI (Body Mass Index) 32.37 kg/m2 Yvon Sorialas [facility] Work Phone: 03-19-2019 11:49-0400 BSA (Body Surface Area) 2.2 m2 Yvon Tourlas -[facility] Work Phone: 03-19-2019 11:49-0400 Height 178 cm Yvon Sorialas [facility] Work Phone: 03-19-2019 11:46-0400 Body weight 102.56 kg Yvon Estellalas -[facility] Work Phone: 03-19-2019 11:46-0400 BP Diastolic 70 mm[Hg] Yvon Estellalas [facility] Work Phone: 03-19-2019 11:46-0400 BP Systolic 118 mm[Hg] Yvon Estellalas -[facility] Work Phone: 03-19-2019 11:46-0400 Pulse (Heart Rate) 63 /min Yvon Man [facility] Work Phone: Encounters Encounter Date Encounter Type Care Provider Facility Start: 01-20-2025 ambulatory Billy Valadez Facility :[facility] Start: 01-02-2025 ambulatory Billy Valadez Facility :[facility] Start: 12-11-2024 End: 12-11-[address] Billy Valadez MD -[facility] Work Phone: Start: 12-11-2024 End: 12-11-[address] Billy Valadez MD Work Phone: -[facility] Start: 12-11-2024 End: 12-11-2024 ambulatory Billy Valadez Facility:[facility] Start: 10-07-2024 End: 10-07-2024 Patient encounter procedure Josué Gillespie [place] -[facility] Work Phone: Start: 10-07-2024 End: 10-07-2024 ambulatory Billy Valadez Facility:[facility] Start: 08-08-2024 ambulatory Billy Valadez Facility :[facility] Start: 07-04-2024 End: 07-04-2024 ambulatory Billy Valadez Facility:[facility] Start: 07-01-2024 End: 07-01-2024 ambulatory Billyshaka Valadez Facility:[facility] Start: 03-18-2024 ambulatory Billy Valadez Facility :[facility] Start: 08-14-2023 End: 08-14-[address] Billy Valadez Work Phone: [facility] Work Phone: Start: 08-14-2023 End: 08-14-[address] Billy Valadez Work Phone: [facility] Work Phone: Start: 08-03-2023 End: 08-03-2023 Encounter for general adult medical examination without abnormal findings Dr. Billy Valadez Work Phone: [facility] Start: 08-03-2023 End: 08-03-[address] Billy Valadez Work Phone: [facility] Work Phone: Start: 10-11-2022 End: 10-11-[address] Billy Valadez Work Phone: [facility] Work Phone: Start: 10-11-2022 End: 10-11-[address] Billy Valadez Work Phone: [facility] Start: 10-10-2022 End: 10-10-[address] Billy Valadez Work Phone: [facility] Work Phone: Start: 10-10-2022 End: 10-10-[address] Billy Valadez Work Phone: [facility] [place] Start: 06-27-2022 End: 06-27-[address] Billy Valadez Work Phone: [facility] Work Phone: Start: 06-27-2022 End: 06-27-[address] Billy Valadez Work Phone: [facility] Start: 06-23-2022 End: 06-23-[address] Billy Valadez Work Phone: [facility] [place] Start: 04-20-2022 Non-patient / Non-visit Dr. Billy Valadez Work Phone: [facility] Start: 04-18-2022 End: 04-18-[address] Billy Valadez Work Phone: [facility] Work Phone: Start: 04-18-2022 End: 04-18-[address] Billy Valadez Work Phone: [facility] Start: 04-12-2022 Non-patient / Non-visit Dr. Billy Valadez Work Phone: [facility] Start: 04-11-[address] Billy Valadez Work Phone: [facility] Start: 04-11-2022 End: 04-11-[address] Billy Valadez Work Phone: [facility] Work Phone: Start: 04-11-2022 End: 04-11-[address] [facility] Start: 04-11-2022 End: 04-11-2022 Encounter for general adult medical examination without abnormal findings Dr. Billy Valadez Work Phone: [facility] [place] Start: 04-11-2022 End: 04-11-[address] Billy Valadez Work Phone: [facility] Start: 03-10-2022 End: 03-10-2022 Emergency department patient [facility] Start: 02-19-2021 AUDIT Antoni Nag S Mal lapareddi Work Phone: [facility] Work Phone: Start: 03-25-2019 Patient encounter procedure Amber Sippey [facility] Work Phone: Start: 03-19-2019 Patient encounter procedure Amber Sippey [facility] Work Phone: Start: 10-01-2018 Patient encounter procedure Facility:[id number] Start: 07-09-2018 Patient encounter procedure Facility:[id number] Start: 01-11-2018 Patient encounter procedure Facility:[id number] Start: 12-12-2017 Patient encounter procedure Facility:[id number] Procedures Date Procedure Procedure Detail Performing Clinician Start: 12-11-2024 X-ray of cervical spine Dr. Billy magallanes MD Work Phone: Start: 10-11-2022 Computed tomography of abdomen and pelvis with contrast Dr. Billy Valadez Work Phone: Start: 06-27-[address] Billy Valadez Work Phone: Start: 04-18-[address] Billy Valadez Work Phone: Start: 07-16-2020 Follow-up visit Start: 09-02-2019 Follow-up visit Start: 03-19-2019 Acute hepatitis panel Yvon Tourl as Start: 03-19-2019 Antibody hiv-1 Yvon Tourlas Start: 03-19-2019 Iadna chlamydia trachomatis amplified probe tq Yvon Tourlas Start: 03-19-2019 MISCELLANEOUS TEST Yvon Tourlas Excision of cyst Khoi s Magda H/O: surgery Hx of removal of cyst Dr. Zina Valadez Work Phone: Comment on above: on back History of cholecystectomy History of cholecystectomy Dr. Billy Valadez Work Phone: Laparoscopic cholecystectomy Amber Chavez Comment on above: 03/15/19, Dr. Amber Chavez, pathology: ch ronic cholecystitis, cholelithiasis; Repair of inguinal hernia Yvon Tourlas Tonsillectomy Yvon galindo Urine culture Dr. Billy Jauregui hner Work Phone: Plan of Treatment Date Care Activity Detail Author Start: 08-14-2023 Assay of prostate specific antigen total ASSAY OF PSA TOTAL [facility] Start: 08-03-2023 Patient referral [facility] Work Phone: Start: 04-11-2022 Assay of prostate specific antigen total ASSAY OF PSA TOTAL [facility] Start: 03-08-2021 EPV, Provider: Antoni Oh, Status: Pen, Time: 12:40 PM EPV, Provider: Antoni Oh, Status: Pen, Time: 12:40 PM [facility] Work Phone: Patient referral [facility] Work Phone: US Kidney - bilatera l and Urinary bladder [facility] Work Phone: Immunizations Immunization Date Immunization Notes Care Provider Melissa awan 11-22-2020 tetanus toxoid, reduced diphtheria toxoid, and acellular pertussis vaccine, adsorbed Dr. Billy Valadez Work Phone: [facility] 11-13-2016 tetanus toxoid, reduced diphtheria toxoid, and acellular pertussis vaccine, adsorbed Yvon Magda [facility] Work Phone: Comment on above: Series: Payers Date Payer Category Payer Unknown [id number] 2024 Self-pay [id number] 2018 Unknown [id number] 1975 Unknown [id number] 2.16. [id number] 1975 Unknown [id number] 2.16. [id number] 1975 Unknown [id number] 2.16. [id number] 1975 Unknown [id number] 2. [id number] 1975 Unknown [id number] 2. [id number] Unknown [id number] Unknown Unknown [id number] Unknown [id number] Unknown [id number] 2.16.8 [id number] Unknown [id number] 2.16.8 [id number] Unknown [id number] 2.16.8 [id number] Unknown [id number] 2.16.8 [id number] Unknown [id number] 2.16.8 [id number] Unknown [id number] 2.16.8 [id number] Unknown [id number] 2.16.8 [id number] Unknown [id number] 2.16.8 [id number] Unknown [id number] 2.16.8 [id number] Social History Date Type Detail Facility No advance directives No advance directiv es [facility] [employer] Work Phone: Start: 04-11-2022 End: 08-03-2023 Tobacco smoking status NHIS Unknown if ever smoked [facility] Start: 1975 Sex Assigned At Male [facility] Start: 12-11-2024 Tobacco smoking status NHIS Never smoked tobacco (finding) [facility] NEGATED: Highlighted row - - [facility] Work Phone: Functional Status Date Assessment Result Facility NEGATED: Highlighted row Functional performance Functional status health issues are not documented Disease [facility] Work Phone: Mental Status Date Assessment Result Facility NEGATED: Highlighted row Cognitive function [Interpretation] Cognitive status health issues are not documented Disease [facility] [employer] Phone: Radiology Diagnostic study note 12-11-2024 Note Date & Type Note Facility 12-11-2024 Radiology Diagnostic study note [facility] Imaging Services [address] [place] [address] Cerv Spine 2 or 3 Views MR#: [id number] Acct: [id number] Name: ALLI HOLLAND Rep #: [id number] 8 : 1975 M 49 From: Chip Jensen MD PCP: Dr. Billy Valadez MD Status: REG CLI Study:Cerv Spine 2 or 3 Views Date of Exam: 12/11/24 Exam# [id number] Ordering Dr: Billy Valadez MD PROCEDURE: CERV SPINE 2 OR 3 VIEWS 12/11/2024 REASON FOR EXAM: CERVICAL RADICULOPATHY TECHNIQUE: CERV SPINE 2 OR 3 VIEWS COMPARISON: None. FINDINGS: No evidence of acute fracture or dislocation. Mild to moderate discogenic degenerative changes of visualized spine. Normal alignment. RAD/Cerv Spine 2 or 3 Views IMPRESSION: Spondylosis. Disclaimer: Reading Location: [place] [address] CC: Dr. Billy Valadez MD ~ Therapy Administrative Assistant: Signed [facility] Evaluation note 10-07-2024 Note Date & Type Note Facility 10-07-2024 Evaluation note Diagnosis Onset Date Resolution Cervical radiculopathy acute Ap ril 2024 5:32pm [facility] Work Phone: Evaluation note 10-07-2024 Note Date & Type Note Facility 10-07-2024 Evaluation note Diagnosis Onset Date Resolution Cervical radiculopathy acute Ap ril 2024 5:32pm Cervical radiculopathy acute Ju ly 2024 8:48am [facility] Work Phone: Evaluation note Note Date & Type Note Facility Evaluation note Diagnosis Onset Date Anxiety acute Cyst of left kidney acute Cyst of right kidney acute Depression acute Encounter for wellness examination in adult acute Hyperlipemia acute [facility] Work Phone: Evaluation note Note Date & Type Note Facility Evaluation note Diagnosis Onset Date Anxiety acute Cyst of left kidney acute Cyst of right kidney acute Depression acute Encounter for wellness examination in adult acute Hyperlipemia acute Kidney stone on right side a cute Post-nasal drainage acute [facility] Work Phone: Evaluation note Note Date & Type Note Facility Evaluation note Diagnosis Onset Date Kidney stone on right side a cute Post-nasal drainage acute Kidney stone on right side a cute Right flank pain acute Right lower quadrant pain ac aline [facility] Work Phone: Evaluation note Note Date & Type Note Facility Evaluation note Diagnosis Onset Date Elevated blood pressure reading acute Encounter for wellness examination in adult acute Hyperlipemia acute Kidney stones acute Low vitamin D level acute [facility] Work Phone: Reason for referral (narrative) Note Date & Type Note Facility Reason for referral (narrative) No reason for referral information available [facility] Work Phone: Summary Purpose Family History No Family [...] of kidney sto ne: Father(V18.69, Z84.1) Status:Active Relationship Condition Age at Onset Recorded Date/T harmeet Not Specified Anxiety with depression Unknown Arthritis Unknown Advance Directives No Advanced Directives Records Found Advance Directive Response Recorded Date/ Time Living Will No March 10, 2022 8:51am Power of [employer] No February 8:51am Advance Directive Response Recorded Date/ Time Living Will No October 10, 2022 8: 15am Power of [employer] No October 10, 2022 8:15am Advance Directive Response Recorded Date/ Time Living Will No August 02 3:33pm Power of [employer] No August 02, 2023 3:33pm Chief Complaint and Reason for Visit Chief Complaint 1 Y FU, Aware of Loc ation Change E ORDERS Amb Documentation Reason for Visit Anxiety Cyst of left kidney Cyst of right kidney Depression Encounter for wellness examination in adult Hyperlipemia Chief Complaint 1 Y FU, Aware of Loc ation Change E ORDERS Amb Documentation CYST OF KIDNEY Amb Documentation Reason for Visit Anxiety Cyst of left kidney Cyst of right kidney Depression Encounter for wellness examination in adult Hyperlipemia Chief Complaint 1 Y FU, Aware of Loc ation Change E ORDERS Amb Documentation CYST OF KIDNEY Amb Documentation Possible Kidney Stones Calculus of kidney Reason for Visit Anxiety Cyst of left kidney Cyst of right kidney Depression Encounter for wellness examination in adult Hyperlipemia Kidney stone on right side Post-nasal drainage Chief Complaint Possible Kidney Ston es Calculus of kidney Fatigue, Stomach issues RLQ PAIN Reason for Visit Kidney stone on righ t side Post-nasal drainage Kidney stone on right side Right flank pain Right lower quadrant pain Chief Complaint Annual/Physical E-ORDER Reason for Visit Elevated blood press ure reading Encounter for wellness examination in adult Hyperlipemia Kidney stones Low vitamin D level Chief Complaint Admit Date WHOLE R ARM AND HAND NUMBNESS AND TINGLI NG October 07, 2024 5:32pm Neck Pain December 11, 2024 8:48a m Reason for Visit Admit Date Cervical radiculopathy October 07, 2024 5:32pm Chief Complaint Admit Date WHOLE R ARM AND HAND NUMBNESS AND TINGLI NG October 07, 2024 5:32pm Neck Pain December 11, 2024 8:48a m E ORDER December 11, 2024 9:39a m Reason for Visit Admit Date Cervical radiculopathy October 07, 2024 5:32pm Cervical radiculopathy December 11, 2024 8: 48am Additional Source Comments (unrecognized sect ion and content) No Status Records FoundNo Status Records FoundNo Status Records FoundNo Status Records FoundNo Status Records FoundNo Status Records Found INFORMATION SOURCE (unrecogn ized section and content) DATE CREATED AUTHOR 10/03/2018 [facility] DATE CREATED AUTHOR AUTHOR'S ORGANIZ ATION 03/16/2019 [facility] DATE CREATED AUTHOR AUTHOR'S ORGANIZ ATION 09/05/[address] [facility] DATE CREATED AUTHOR AUTHOR'S ORGANIZ ATION 07/17/2020 [employer] DATE CREATED AUTHOR AUTHOR'S ORGANIZ ATION 03/14/2022 [facility] DATE CREATED AUTHOR AUTHOR'S ORGANIZ ATION 01/01/2025 [facility] Goals (unrecognized section and content) Goals may be documented in a n alternate sectionGoals may be documented in an alternate sectionGoals may be documented in an alternate sectionGoals may be documented in an alternate sectionGoals may be documented in an alternate sectionGoals may be documented in an alternate sectionGoals may be documented in an alternate sectionGoals may be documented in an alternate section Care Teams (unrecognized sec tion and content) Team Status: Active Member Role Status Dates Dr. Adria Atwood MD Family Provider Active Dr. Billy Valadez MD Primary Care Provider Active Team Status: Inactive Member Role Status Dates Dr. Billy Valadez MD Primary Care Provider, Attendi ng Provider Active Team Status: Active Member Role Status Dates Dr. Billy Valadez MD Primary Care Provider Active Gaurav Medina Attending Provider Active Team Status: Inactive Member Role Status Dates Dr. Billy Valadez MD Primary Care Pro vider, Attending Provider, Referring Provider Active Team Status: Active Member Role Status Dates Dr. Billy Valadez MD Primary Care Pro vider, Attending Provider, Referring Provider Active Team Status: Active Member Role/Relationship Status Dates Dr. Ben Atwood MD Family Provider Active Dr. Billy Valadez MD Primary Care Provider Active Team Status: Inactive Member Role/Relationship Status Dates Dr. Billy Valadez MD Primary Care Provider Active Start: October 07, 2024 End: October 07, 2024 Dr. Billy Valadez MD Referring Provider Active Start: October 07, 2024 End: October 07, 2024 Josué Gillespie PA, PA Attending Provider Active Start: October 07, 2024 End: October 07, 2024 Team Status: Inactive Member Role/Relationship Status Dates Dr. Billy Valadez MD Primary Care Provider Active Start: December 11, 2024 End: December 11, 2024 Dr. Billy Valadez MD Attending Provider Active Start: December 11, 2024 End: December 11, 2024 Team Status: Inactive Member Role/Relationship Status Dates Dr. Billy Valadez MD Primary Care Provider Active Start: December 11, 2024 End: December 11, 2024 Dr. Billy Valadez MD Attending Provider Active Start: December 11, 2024 End: December 11, 2024 Dr. Billy Valadez MD Referring Provider Active Start: December 11, 2024 End: December 11, 2024 FOR RECORDS PERTAINING TO PATIENTS WHO ARE [...] BE BASED ON THE PRIMARY CLINICAL RECORDS. [facility] [facility]. provides no warranty or guarantee of the accuracy or completeness of information in this document.
== END | disposition home or self-care (01) ==
LOC: OPMRI 12:28
PROVIDERS: PCP Internal Medicine; Referring Provider Internal Medicine; Visit Provider Internal Medicine
DX: M54.12 Radiculopathy, cervical region (principal)
CPT/HCPCS: 72141

== ENCOUNTER 2025-01-20 10:13 | Day surgery (SDC) | payer OTHER, SELFPAY ==
[2025-01-20] VITALS (8 sets, daily range): BP systolic 111–140; BP diastolic 81–90; PULSE 66–82; RESP 16; TEMP 36.1; O2SAT 92–98; BMI 33.2
[2025-01-20] MEDS: Lactated Ringers 1,000 ML 15 ML IV (10:51)
--- NOTE | 2025-01-20 11:00 | COLBX_PTH ---
PATIENT: ALLI HOLLAND LOC: EN U#:[id number] AGE/SX: 49/M ROOM: RE01/20/[address]: Dr. David Hernandez MD : 1975 BED: DIS: 01/20/2025 SPEC #: [id number] RECD: 01/20/25 13:42 STATUS: FRANCIS ROWLANDSweta #: [id number] CB: 01/20/25 11:[address]: David Hernandez DEPT: SURGICAL PATHOLOGY RECD BY: Shabbir Johnson ENTERED: 01/20/25 14:44 SP TYPE: COLON BX OTHR DR: Dr. Abigail Thompson MD Tissues: A - Transverse colon Procedures: Surgery Specimen Level IV HEADER OPERATION: Colonoscopy with polypectomy PRE-OP DIAGNOSIS: Colon cancer screening TISSUE SUBMITTED: A- Transverse colon polyp MICROSCOPIC DIAGNOSIS A. Transverse colon, polyp, biopsy: - Tubular adenoma. MICROSCOPIC DESCRIPTION Slides are reviewed. GROSS DESCRIPTION A. Received in fixative is one container labeled with the patient's name and designated Transverse colon polyp. The specimen consists of two irregular fragments of light hernandez soft tissue that measure 0.3 and 0.8 x 0.4 x 0.2 cm. The specimen is totally submitted in one cassette. [place] 01/20/2025 CPT:01863
--- NOTE | 2025-01-20 11:00 | PRE.ANES_ITS ---
ASA Classification* ASA Classification ASA Classification: 2 Assessment & Plan Anesthesia* Anesthesia Assessment Anesthesia Assessment: Discussed sedation and/or anesthesia options, risks, benefits, and alternatives with patient/parents/legal guardian/POA. Questions invited. The patient/parents/legal guardian/POA seems to understand and agrees to proceed with anesthesia plan. Reviewed the physical assessment, medical history, allergy history and patient home medications list prior to surgery/procedure/anesthetic and documented any changes. Performed airway and anesthesia risk assessments. Anesthesia Type Anesthesia Type: MAC History Source History Obtained from:: Patient and Chart Anesthesia Focused Assessment* Temperature: 97.0 F Pulse Rate: 66 Blood Pressure: 140/90 Respiratory Rate: 16 Pulse Ox: 98 Oxygen Delivery Method: Room Air Airway Assessment Mouth opens: >3 cm Mallampati Score: III Teeth Condition: Intact Neck Range of motion (ROM): Full ROM Labs Anesthesia Preop lab: CBC WBC 8.9 K/mm3 (4.4-11.0) 07/01/24 12:07/01/24 RBC 5.10 M/mm3 (4.6-6.2) 07/01/24 12:24 07/01/24 Hgb 15.0 g/dL (13.0-16.5) 07/01/24 12:07/01/24 Hct 44.6 % (40-54) 07/01/24 12:24 07/01/24 Plt Count 242 K/mm3 (150-450) 07/01/24 12:24 07/01/24 CHEMISTRY Potassium 4.0 mmol/L (3.5-5.1) 07/01/24 12:07/01/24 Sodium 139 mmol/L (136-145) 07/01/24 12:07/01/24 Magnesium 2.0 mg/dL (1.6-2.6) 08/14/23 06:29 08/14/23 BUN 11 mg/dL (7-18) 07/01/24 12:07/01/24 Creatinine 1.11 mg/dL (0.70-1.30) 07/01/24 12:24 07/01/24 Glucose 107 mg/dL (74-106) H 07/01/24 12:07/01/24 TSH 0.85 uIU/mL (0.358-3.74) 08/14/23 06:29 COAG Pre-Assessment Diagnosis/Proposed Procedure Planned Operative Procedure(s): COLONOSCOPY Anesthesia History 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 When Was Last Pacemaker Check QUESTION #4 FULL TEXT: You/Your Family Experience fever (hyperthermia) with Anesthesia Any additional information?: No Last Oral Intake Last Oral intake: Last Oral Intake NPO since 00:00 01/20/25 10:48 Meds taken in AM with sips of No 01/20/25 10:48 water? 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 Female No 01/17/25 15:34 HX of Motion Sickness No 01/17/25 15:34 HX of N/V After Surgery No 01/17/25 15:34 Non-Smoker Yes 01/17/25 15:34 Duration of Surgery greater No 01/17/25 15:34 than 60 minutes Number of Risk Factors 1 01/17/25 15:34 PONV Score Low Risk 01/17/25 15:34 Any additional information?: No Height & Weight Height & Weight: Anesthesia: Height & Weight Height 5 ft 10 in 01/20/25 10:48 Weight: 105 kg 01/20/25 10:48 Body Mass Index (BMI) 33.2 01/20/25 10:48 Respiratory Assessment Respiratory Assessment - paper products machine operator: Respiratory Tract Infection Hx - paper products machine operator Hx Respiratory Tract Infection No 01/17/25 15:34 Any additional information?: No STOP Sleep Apnea STOP Sleep Apnea - paper products machine operator: STOP Sleep Apnea - paper products machine operator Hx Hypertension No 01/17/25 15:34 Hx Sleep Apnea No 01/17/25 15:34 CPAP BIPAP Do you snore loudly (louder No 01/17/25 15:34 than talking or can be heard Do you often feel tired/ No 01/17/25 15:34 fatigued/ sleepy during daytime? Has anyone observed you stop No 01/17/25 15:34 breathing during sleep? STOP Results Negative 01/17/25 15:34 QUESTION #5 FULL TEXT : Do you snore loudly (louder than talking or can be heard through closed doors)? 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 Specify any problems Hx of Preganancy in last 3 N/A 01/17/25 15:34 Months Nurse Filling Out Transfusion [facility] 01/17/25 15:34 & Questions: Date: 01/17/25 01/17/25 15:34 Time: 15:40 01/17/25 15:34 Patient unable to answer at this time (ie. 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 products machine operator: /Reproductive Hx- paper products machine operator Hx Now Gestational Age (in weeks): EDC: Hx Hx Para Hx Section SAB Any additional information?: No Active Medications Active Medications: Current Medications Generic Name Dose Route Start Last Admin Trade Name Freq PRN Reason Stop Dose Admin Lactated Ringer's 1,000 mls @ 15 mls/hr 01/20/25 10:30 01/20/25 10:51 IV 15 mls/hr .Q48H DEL Administration PFSH Medical History Wears glasses History of steroid therapy Former smoker Cervical radiculopathy Gastrocnemius tear Elevated fasting blood sugar Encounter for screening for COVID-19 Anxiety Arthritis Gallstones Kidney stones Hyperlipemia Seasonal allergies Depression Cyst of right kidney Cyst of left kidney Home Medications ?Medication ?Instructions ?Recorded ?Last Taken ?Type cholecalciferol (vitamin D3) 25 See Rx Instructions PO DAILY 04/12/22 01/18/25 History mcg (1,000 unit) tablet B12 1 ea PO DAILY 10/10/22 Unkno wn History multivitamin 1 tab PO DAILY 10/10/22 0803/06 History tumeric 1 ea PO DAILY 10/10/2201/18 History vitamin B complex 1 tab PO DAILY 10/10/22 Unkn own History vitamin c 500 mg PO DAILY 10/10/22 Unk nown History meloxicam 15 mg tablet 15 mg PO DAILY PRN Arthritis pain 08/03/23 01/15/25 Rx #60 tabs fluticasone propionate 50 1 spray intranasal DAILY #16 grams 07/04/24 Unknown Rx mcg/actuation nasal spray,suspension (Flonase Allergy Relief) escitalopram oxalate 20 mg tablet 20 mg PO DAILY #90 t abs 10/25/24 01/19/25 Rx cyclobenzaprine 10 mg tablet 10 mg PO TID PRN muscle s pasm #30 12/11/24 Unknown Rx tabs cinnamon bark 500 mg capsule 500 mg PO DAILY 01/17/25 01/18/25 History (Cinnamon) hydrocodone-acetaminophen 5-325mg 1 tab PO Q8 PRN pain 01/17/25 01/15/25 History 5mg-325mg vitamin D3 1,250 mcg (50,000 1 cap PO DAILY 01/17/25 U nknown History unit)-vitamin K2 200 mcg capsule (Decara K) Allergy/AdvReac Type Severity Reaction Status Date / Time Seasonal Allergies: Uncoded Allergy Intermediate Other Verified 01/17/25 15:31 Family History Other Anxiety with depression Arthritis Surgical History History of extraction of renal calculus Hx of removal of cyst History of cholecystectomy History of hernia repair Social History Smoking Status: Former smoker quit date: 06/12/10 Tobacco: How many years used: 10 alcohol intake: never substance use type: does not use 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 Per patient steroids in december did not help. Review of Systems (Anesthesia) ROS Narrative System reviewed and no additional complaints, except as documented.
--- NOTE | 2025-01-20 11:00 | PRE.ANES_ITS ---
ASA Classification* ASA Classification ASA Classification: 2 Assessment & Plan Anesthesia* Anesthesia Assessment Anesthesia Assessment: Discussed sedation and/or anesthesia options, risks, benefits, and alternatives with patient/parents/legal guardian/POA. Questions invited. The patient/parents/legal guardian/POA seems to understand and agrees to proceed with anesthesia plan. Reviewed the physical assessment, medical history, allergy history and patient home medications list prior to surgery/procedure/anesthetic and documented any changes. Performed airway and anesthesia risk assessments. Anesthesia Type Anesthesia Type: MAC History Source History Obtained from:: Patient and Chart Anesthesia Focused Assessment* Temperature: 97.0 F Pulse Rate: 66 Blood Pressure: 140/90 Respiratory Rate: 16 Pulse Ox: 98 Oxygen Delivery Method: Room Air Airway Assessment Mouth opens: >3 cm Mallampati Score: III Teeth Condition: Intact Neck Range of motion (ROM): Full ROM Labs Anesthesia Preop lab: CBC WBC 8.9 K/mm3 (4.4-11.0) 07/01/24 12:07/01/24 RBC 5.10 M/mm3 (4.6-6.2) 07/01/24 12:24 07/01/24 Hgb 15.0 g/dL (13.0-16.5) 07/01/24 12:07/01/24 Hct 44.6 % (40-54) 07/01/24 12:24 07/01/24 Plt Count 242 K/mm3 (150-450) 07/01/24 12:24 07/01/24 CHEMISTRY Potassium 4.0 mmol/L (3.5-5.1) 07/01/24 12:07/01/24 Sodium 139 mmol/L (136-145) 07/01/24 12:07/01/24 Magnesium 2.0 mg/dL (1.6-2.6) 08/14/23 06:29 08/14/23 BUN 11 mg/dL (7-18) 07/01/24 12:07/01/24 Creatinine 1.11 mg/dL (0.70-1.30) 07/01/24 12:24 07/01/24 Glucose 107 mg/dL (74-106) H 07/01/24 12:07/01/24 TSH 0.85 uIU/mL (0.358-3.74) 08/14/23 06:29 COAG Pre-Assessment Diagnosis/Proposed Procedure Planned Operative Procedure(s): COLONOSCOPY Anesthesia History 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 When Was Last Pacemaker Check QUESTION #4 FULL TEXT: You/Your Family Experience fever (hyperthermia) with Anesthesia Any additional information?: No Last Oral Intake Last Oral intake: Last Oral Intake NPO since 00:00 01/20/25 10:48 Meds taken in AM with sips of No 01/20/25 10:48 water? 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 Female No 01/17/25 15:34 HX of Motion Sickness No 01/17/25 15:34 HX of N/V After Surgery No 01/17/25 15:34 Non-Smoker Yes 01/17/25 15:34 Duration of Surgery greater No 01/17/25 15:34 than 60 minutes Number of Risk Factors 1 01/17/25 15:34 PONV Score Low Risk 01/17/25 15:34 Any additional information?: No Height & Weight Height & Weight: Anesthesia: Height & Weight Height 5 ft 10 in 01/20/25 10:48 Weight: 105 kg 01/20/25 10:48 Body Mass Index (BMI) 33.2 01/20/25 10:48 Respiratory Assessment Respiratory Assessment - check writing machine operator: Respiratory Tract Infection Hx - check writing machine operator Hx Respiratory Tract Infection No 01/17/25 15:34 Any additional information?: No STOP Sleep Apnea STOP Sleep Apnea - check writing machine operator: STOP Sleep Apnea - check writing machine operator Hx Hypertension No 01/17/25 15:34 Hx Sleep Apnea No 01/17/25 15:34 CPAP BIPAP Do you snore loudly (louder No 01/17/25 15:34 than talking or can be heard Do you often feel tired/ No 01/17/25 15:34 fatigued/ sleepy during daytime? Has anyone observed you stop No 01/17/25 15:34 breathing during sleep? STOP Results Negative 01/17/25 15:34 QUESTION #5 FULL TEXT : Do you snore loudly (louder than talking or can be heard through closed doors)? 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 Specify any problems Hx of Preganancy in last 3 N/A 01/17/25 15:34 Months Nurse Filling Out Transfusion [facility] 01/17/25 15:34 & Questions: Date: 01/17/25 01/17/25 15:34 Time: 15:40 01/17/25 15:34 Patient unable to answer at this time (ie. 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: /Reproductive Hx- check writing machine operator Hx Now Gestational Age (in weeks): EDC: Hx Hx Para Hx Section SAB Any additional information?: No Active Medications Active Medications: Current Medications Generic Name Dose Route Start Last Admin Trade Name Freq PRN Reason Stop Dose Admin Lactated Ringer's 1,000 mls @ 15 mls/hr 01/20/25 10:30 01/20/25 10:51 IV 15 mls/hr .Q48H DEL Administration PFSH Medical History Wears glasses History of steroid therapy Former smoker Cervical radiculopathy Gastrocnemius tear Elevated fasting blood sugar Encounter for screening for COVID-19 Anxiety Arthritis Gallstones Kidney stones Hyperlipemia Seasonal allergies Depression Cyst of right kidney Cyst of left kidney Home Medications ?Medication ?Instructions ?Recorded ?Last Taken ?Type cholecalciferol (vitamin D3) 25 See Rx Instructions PO DAILY 04/12/22 01/18/25 History mcg (1,000 unit) tablet B12 1 ea PO DAILY 10/10/22 Unkno wn History multivitamin 1 tab PO DAILY 10/10/22 0803/06 History tumeric 1 ea PO DAILY 10/10/2201/18 History vitamin B complex 1 tab PO DAILY 10/10/22 Unkn own History vitamin c 500 mg PO DAILY 10/10/22 Unk nown History meloxicam 15 mg tablet 15 mg PO DAILY PRN Arthritis pain 08/03/23 01/15/25 Rx #60 tabs fluticasone propionate 50 1 spray intranasal DAILY #16 grams 07/04/24 Unknown Rx mcg/actuation nasal spray,suspension (Flonase Allergy Relief) escitalopram oxalate 20 mg tablet 20 mg PO DAILY #90 t abs 10/25/24 01/19/25 Rx cyclobenzaprine 10 mg tablet 10 mg PO TID PRN muscle s pasm #30 12/11/24 Unknown Rx tabs cinnamon bark 500 mg capsule 500 mg PO DAILY 01/17/25 01/18/25 History (Cinnamon) hydrocodone-acetaminophen 5-325mg 1 tab PO Q8 PRN pain 01/17/25 01/15/25 History 5mg-325mg vitamin D3 1,250 mcg (50,000 1 cap PO DAILY 01/17/25 U nknown History unit)-vitamin K2 200 mcg capsule (Decara K) Allergy/AdvReac Type Severity Reaction Status Date / Time Seasonal Allergies: Uncoded Allergy Intermediate Other Verified 01/17/25 15:31 Family History Other Anxiety with depression Arthritis Surgical History History of extraction of renal calculus Hx of removal of cyst History of cholecystectomy History of hernia repair Social History Smoking Status: Former smoker quit date: 06/12/10 Tobacco: How many years used: 10 alcohol intake: never substance use type: does not use 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 Per patient steroids in december did not help. Review of Systems (Anesthesia) ROS Narrative System reviewed and no additional complaints, except as documented.
--- NOTE | 2025-01-20 11:00 | COLBX_PTH ---
PATIENT: ALLI HOLLAND LOC: EN U#:[id number] AGE/SX: 49/M ROOM: RE01/20/[address]: Dr. David Hernandez MD : 1975 BED: DIS: 01/20/2025 SPEC #: [id number] RECD: 01/20/25 13:42 STATUS: FRANCIS ROWLANDSweta #: [id number] CB: 01/20/25 11:[address]: David Hernandez DEPT: SURGICAL PATHOLOGY RECD BY: Shabbir Johnson ENTERED: 01/20/25 14:44 SP TYPE: COLON BX OTHR DR: Dr. Abigail Thompson MD Tissues: A - Transverse colon Procedures: Surgery Specimen Level IV HEADER OPERATION: Colonoscopy with polypectomy PRE-OP DIAGNOSIS: Colon cancer screening TISSUE SUBMITTED: A- Transverse colon polyp MICROSCOPIC DIAGNOSIS A. Transverse colon, polyp, biopsy: - Tubular adenoma. MICROSCOPIC DESCRIPTION Slides are reviewed. GROSS DESCRIPTION A. Received in fixative is one container labeled with the patient's name and designated Transverse colon polyp. The specimen consists of two irregular fragments of light hernandez soft tissue that measure 0.3 and 0.8 x 0.4 x 0.2 cm. The specimen is totally submitted in one cassette. AL 01/20/2025 CPT:70024
--- NOTE | 2025-01-20 11:08 | HP.PCM_ITS ---
HPI - General HPI Narrative ALLI HOLLAND, is a 49 M who presents for screening colonoscopy. Patient has never had a colonoscopy the past. He denies abdominal pain or blood in stool. He has no family history of colon cancer. [facility] Medical History Wears glasses History of steroid therapy Former smoker Cervical radiculopathy Gastrocnemius tear Elevated fasting blood sugar Encounter for screening for COVID-19 Anxiety Arthritis Gallstones Kidney stones Hyperlipemia Seasonal allergies Depression Cyst of right kidney Cyst of left kidney Home Medications ?Medication ?Instructions ?Recorded ?Last Taken ?Type cholecalciferol (vitamin D3) 25 See Rx Instructions PO DAILY 04/12/22 01/18/25 History mcg (1,000 unit) tablet B12 1 ea PO DAILY 10/10/22 Unkno wn History multivitamin 1 tab PO DAILY 10/10/2203/06 History tumeric 1 ea PO DAILY 10/10/2201/18 History vitamin B complex 1 tab PO DAILY 10/10/22 Unkn own History vitamin c 500 mg PO DAILY 10/10/22 Unk nown History meloxicam 15 mg tablet 15 mg PO DAILY PRN Arthritis pain 08/03/23 01/15/25 Rx #60 tabs fluticasone propionate 50 1 spray intranasal DAILY #16 grams 07/04/24 Unknown Rx mcg/actuation nasal spray,suspension (Flonase Allergy Relief) escitalopram oxalate 20 mg tablet 20 mg PO DAILY #90 t abs 10/25/24 01/19/25 Rx cyclobenzaprine 10 mg tablet 10 mg PO TID PRN muscle s pasm #30 12/11/24 Unknown Rx tabs cinnamon bark 500 mg capsule 500 mg PO DAILY 01/17/25 01/18/25 History (Cinnamon) hydrocodone-acetaminophen 5-325mg 1 tab PO Q8 PRN pain 01/17/25 01/15/25 History 5mg-325mg vitamin D3 1,250 mcg (50,000 1 cap PO DAILY 01/17/25 U nknown History unit)-vitamin K2 200 mcg capsule (Decara K) Allergy/AdvReac Type Severity Reaction Status Date / Time Seasonal Allergies: Uncoded Allergy Intermediate Other Verified 01/17/25 15:31 Family History Other Anxiety with depression Arthritis Surgical History History of extraction of renal calculus Hx of removal of cyst History of cholecystectomy History of hernia repair Social History Smoking Status: Former smoker quit date: 06/12/10 Tobacco: How many years used: 10 alcohol intake: never substance use type: does not use what 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, 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 Planned Operation Planned Operative Procedure(s): COLONOSCOPY Previous Hospitalizations/Surgeries HX Hospitalizations: No Any Problems With Anesthesia: No You/Your Family Experience Fever (Hyperthermia) With Anes: No Cholinesterase deficiency: No Cardiovascular Hx Heart Attack: No Hx Hypertension: No Respiratory Hx Chronic Obstructive Pulmonary Disease (COPD): No Hx Asthma: No Hx Emphysema: No Hx Sleep Apnea: No Hx Respiratory Tract Infection/Cold (presently): No Do You Snore Loudly (louder than talking or can be heard): No Do You Often Feel Tired/ Fatigued/ Sleepy Dring Daytime?: No Has Anyone Observed You Stop Breathing During Sleep?: No Result (for STOP score): Negative Smoking Status: Former smoker Neurological Hx Seizures: No Does patient have nerve stimulator: No Miscellaneous Recent Exposure to Contagious Disease: No Allergies Seasonal Allergies: Uncoded Allergy (Intermediate, Verified 01/17/25 15:31) Other Nasal congestion and watery eyes Discharge Is Pt Admitted From a Group Home, or a Custodial: No Who Could Help: FRIEND After D/C, Where Do you Plan to Go: Return Home Vital Signs Vital Signs Vital Signs: 01/20/25 10:47 01/20/25 10:48 01/20/25 11:06 Temperature 97.0 F L 97.0 F L Temperature Source Temporal Pulse Rate 66 66 Respiratory Rate 16 16 Respiratory Pattern Normal Blood Pressure 140/90 H 140/90 H Blood Pressure Mean 106 Blood Pressure Source Monitor Blood Pressure Position Semi-Fowlers Blood Pressure Location Left Arm Pulse Ox 98 98 Oxygen Delivery Method Room Air Room Air Weight Weight: 231 lb 7.766 oz Body Mass Index (BMI) 33.2 Physical Exam Const alert and oriented x3 HEENT normocephalic Eyes PERRL Resp normal respiratory effort and normal air movement Cardio regular rate and regular rhythm GI soft to palpation, non-tender and non-distended Extremity normal to inspection Assessment & Plan Assessment/Plan (1) Colon cancer screening: PLAN: With abdominal pain I explained endoscopy in detail to the patient. I explained the risks including but not limited to stroke or heart attack with anesthesia, perforation of the GI tract, bleeding, infection. I explained that any of these could necessitate further emergency surgery. The patient understands and all questions were answered sufficiently. The patient wishes to proceed with procedure. David Hernandez MD Pager: [facility] [address] [place] [address], [address] [place] [address] Office: Surgery Risks - Colonoscopy Risks Include but are not Limited To: Risks include but are not limited to: Bleeding, perforation requiring further surgery, inability to complete colonoscopy requiring barium enema.
--- NOTE | 2025-01-20 11:08 | HP.PCM_ITS ---
HPI - General HPI Narrative ALLI HOLLAND, is a 49 M who presents for screening colonoscopy. Patient has never had a colonoscopy the past. He denies abdominal pain or blood in stool. He has no family history of colon cancer. [facility] Medical History Wears glasses History of steroid therapy Former smoker Cervical radiculopathy Gastrocnemius tear Elevated fasting blood sugar Encounter for screening for COVID-19 Anxiety Arthritis Gallstones Kidney stones Hyperlipemia Seasonal allergies Depression Cyst of right kidney Cyst of left kidney Home Medications ?Medication ?Instructions ?Recorded ?Last Taken ?Type cholecalciferol (vitamin D3) 25 See Rx Instructions PO DAILY 04/12/22 01/18/25 History mcg (1,000 unit) tablet B12 1 ea PO DAILY 10/10/22 Unkno wn History multivitamin 1 tab PO DAILY 10/10/2203/06 History tumeric 1 ea PO DAILY 10/10/2201/18 History vitamin B complex 1 tab PO DAILY 10/10/22 Unkn own History vitamin c 500 mg PO DAILY 10/10/22 Unk nown History meloxicam 15 mg tablet 15 mg PO DAILY PRN Arthritis pain 08/03/23 01/15/25 Rx #60 tabs fluticasone propionate 50 1 spray intranasal DAILY #16 grams 07/04/24 Unknown Rx mcg/actuation nasal spray,suspension (Flonase Allergy Relief) escitalopram oxalate 20 mg tablet 20 mg PO DAILY #90 t abs 10/25/24 01/19/25 Rx cyclobenzaprine 10 mg tablet 10 mg PO TID PRN muscle s pasm #30 12/11/24 Unknown Rx tabs cinnamon bark 500 mg capsule 500 mg PO DAILY 01/17/25 01/18/25 History (Cinnamon) hydrocodone-acetaminophen 5-325mg 1 tab PO Q8 PRN pain 01/17/25 01/15/25 History 5mg-325mg vitamin D3 1,250 mcg (50,000 1 cap PO DAILY 01/17/25 U nknown History unit)-vitamin K2 200 mcg capsule (Decara K) Allergy/AdvReac Type Severity Reaction Status Date / Time Seasonal Allergies: Uncoded Allergy Intermediate Other Verified 01/17/25 15:31 Family History Other Anxiety with depression Arthritis Surgical History History of extraction of renal calculus Hx of removal of cyst History of cholecystectomy History of hernia repair Social History Smoking Status: Former smoker quit date: 06/12/10 Tobacco: How many years used: 10 alcohol intake: never substance use type: does not use what 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, 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 Planned Operation Planned Operative Procedure(s): COLONOSCOPY Previous Hospitalizations/Surgeries HX Hospitalizations: No Any Problems With Anesthesia: No You/Your Family Experience Fever (Hyperthermia) With Anes: No Cholinesterase deficiency: No Cardiovascular Hx Heart Attack: No Hx Hypertension: No Respiratory Hx Chronic Obstructive Pulmonary Disease (COPD): No Hx Asthma: No Hx Emphysema: No Hx Sleep Apnea: No Hx Respiratory Tract Infection/Cold (presently): No Do You Snore Loudly (louder than talking or can be heard): No Do You Often Feel Tired/ Fatigued/ Sleepy Dring Daytime?: No Has Anyone Observed You Stop Breathing During Sleep?: No Result (for STOP score): Negative Smoking Status: Former smoker Neurological Hx Seizures: No Does patient have nerve stimulator: No Miscellaneous Recent Exposure to Contagious Disease: No Allergies Seasonal Allergies: Uncoded Allergy (Intermediate, Verified 01/17/25 15:31) Other Nasal congestion and watery eyes Discharge Is Pt Admitted From a [facility], or a Snf: No Who Could Help: FRIEND After D/C, Where Do you Plan to Go: Return Home Vital Signs Vital Signs Vital Signs: 01/20/25 10:47 01/20/25 10:48 01/20/25 11:06 Temperature 97.0 F L 97.0 F L Temperature Source Temporal Pulse Rate 66 66 Respiratory Rate 16 16 Respiratory Pattern Normal Blood Pressure 140/90 H 140/90 H Blood Pressure Mean 106 Blood Pressure Source Monitor Blood Pressure Position Semi-Fowlers Blood Pressure Location Left Arm Pulse Ox 98 98 Oxygen Delivery Method Room Air Room Air Weight Weight: 231 lb 7.766 oz Body Mass Index (BMI) 33.2 Physical Exam Const alert and oriented x3 HEENT normocephalic Eyes PERRL Resp normal respiratory effort and normal air movement Cardio regular rate and regular rhythm GI soft to palpation, non-tender and non-distended Extremity normal to inspection Assessment & Plan Assessment/Plan (1) Colon cancer screening: PLAN: With abdominal pain I explained endoscopy in detail to the patient. I explained the risks including but not limited to stroke or heart attack with anesthesia, perforation of the GI tract, bleeding, infection. I explained that any of these could necessitate further emergency surgery. The patient understands and all questions were answered sufficiently. The patient wishes to proceed with procedure. David Hernandez MD Pager: [facility] [address] [place] [address], [address] [place] [address] Office: Surgery Risks - Colonoscopy Risks Include but are not Limited To: Risks include but are not limited to: Bleeding, perforation requiring further surgery, inability to complete colonoscopy requiring barium enema.
[2025-01-20] MEDS: Lidocaine 1% (5 ml sdv) 5 ML Vial IV (11:19)
--- NOTE | 2025-01-20 11:37 | OP.PROVAT_ITS ---
01/20/2025 Abigail Thompson [facility] [address] [place] [address] Re : Colonoscopy procedure for Mikhail Li Dear Dr. Thompson This procedure was performed on Monday, January 20, 2025. My impressions and recommendations are as follows: Impressions : - One polyp in the transverse colon, removed with a hot snare. Resected and retrieved. - The examination was otherwise normal on direct and retroflexion views. Recommendations : - Discharge patient to home. - Resume previous diet. - Continue present medications. - Await pathology results. - Repeat colonoscopy in 5 years for surveillance. My findings are described in the full procedure note, which is enclosed. If I can be of further assistance, please feel free to contact me at Doctor phone number(s): , Work: . Sincerely, David Hernandez MD 01/20/2025 11:36:32 AM This report has been signed electronically.
--- NOTE | 2025-01-20 11:37 | OP.PROVAT_ITS ---
01/20/2025 Abigail Thompson [facility] [address] [place] [address] Re : Colonoscopy procedure for Mikhail Li Dear Dr. Thompson This procedure was performed on Monday, January 20, 2025. My impressions and recommendations are as follows: Impressions : - One polyp in the transverse colon, removed with a hot snare. Resected and retrieved. - The examination was otherwise normal on direct and retroflexion views. Recommendations : - Discharge patient to home. - Resume previous diet. - Continue present medications. - Await pathology results. - Repeat colonoscopy in 5 years for surveillance. My findings are described in the full procedure note, which is enclosed. If I can be of further assistance, please feel free to contact me at Doctor phone number(s): , Work: . Sincerely, David Hernandez MD 01/20/2025 11:36:32 AM This report has been signed electronically.
--- NOTE | 2025-01-20 11:37 | OP.COLON_ITS ---
Patient Name: Mikhail Li Procedure Date: 01/20/2025 10:40 AM Date of : 1975 Age: 49 Procedure: Colonoscopy Indications: Screening for colorectal malignant neoplasm Providers: David Hernandez MD Referring MD: Abigail Thompson Medicines: Propofol per Anesthesia Patient Profile: This is a 49 year old male. Refer to note in patient chart for documentation of history and physical. Last Colonoscopy: none. The patient's first colonoscopy is today. Complications: No immediate complications. Procedure: Pre-Anesthesia Assessment: - Prior to the procedure, a History and Physical was performed, and patient medications and allergies were reviewed. The patient's tolerance of previous anesthesia was also reviewed. The risks and benefits of the procedure and the sedation options and risks were discussed with the patient. All questions were answered, and informed consent was obtained. Prior Anticoagulants: The patient has taken no anticoagulant or antiplatelet agents. After reviewing the risks and benefits, the patient was deemed in satisfactory condition to undergo the procedure. After I obtained informed consent, the scope was passed under direct vision. Throughout the procedure, the patient's blood pressure, pulse, and oxygen saturations were monitored continuously. The Colonoscope was introduced through the anus and advanced to the cecum, identified by appendiceal orifice and ileocecal valve. The colonoscopy was performed without difficulty. The patient tolerated the procedure well. The quality of the bowel preparation was good. The ileocecal valve, appendiceal orifice, and rectum were photographed. Scope In: 11:25:04 AM Scope Withdrawal Time 0 hours 6 minutes 9 seconds Scope Out: 11:33:41 AM Total Procedure Duration Time 0 hours 8 minutes 37 seconds Findings: A polyp was found in the transverse colon. The polyp was removed with a hot snare. Resection and retrieval were complete. The exam was otherwise without abnormality on direct and retroflexion views. Impression: - One polyp in the transverse colon, removed with a hot snare. Resected and retrieved. - The examination was otherwise normal on direct and retroflexion views. Recommendation: - Discharge patient to home. - Resume previous diet. - Continue present medications. - Await pathology results. - Repeat colonoscopy in 5 years for surveillance. Procedure Code(s): --- Professional --- 15561, 33, Colonoscopy, flexible; with removal of tumor(s), polyp(s), or other lesion(s) by snare technique Diagnosis Code(s): --- Professional --- Z12.11, Encounter for screening for malignant neoplasm of colon D12.3, Benign neoplasm of transverse colon (hepatic flexure or splenic flexure) CPT copyright 2021 [employer]. All rights reserved. The codes documented in this report are preliminary and upon medical billing coder review may be revised to meet current compliance requirements. David Hernandez MD 01/20/2025 11:36:32 AM This report has been signed electronically. Number of Addenda: 0 Note Initiated On: 01/20/2025 10:40 AM
--- NOTE | 2025-01-20 11:37 | OP.COLON_ITS ---
Patient Name: Mikhail Li Procedure Date: 01/20/2025 10:40 AM Date of : 1975 Age: 49 Procedure: Colonoscopy Indications: Screening for colorectal malignant neoplasm Providers: David Hernandez MD Referring MD: Abigail Thompson Medicines: Propofol per Anesthesia Patient Profile: This is a 49 year old male. Refer to note in patient chart for documentation of history and physical. Last Colonoscopy: none. The patient's first colonoscopy is today. Complications: No immediate complications. Procedure: Pre-Anesthesia Assessment: - Prior to the procedure, a History and Physical was performed, and patient medications and allergies were reviewed. The patient's tolerance of previous anesthesia was also reviewed. The risks and benefits of the procedure and the sedation options and risks were discussed with the patient. All questions were answered, and informed consent was obtained. Prior Anticoagulants: The patient has taken no anticoagulant or antiplatelet agents. After reviewing the risks and benefits, the patient was deemed in satisfactory condition to undergo the procedure. After I obtained informed consent, the scope was passed under direct vision. Throughout the procedure, the patient's blood pressure, pulse, and oxygen saturations were monitored continuously. The Colonoscope was introduced through the anus and advanced to the cecum, identified by appendiceal orifice and ileocecal valve. The colonoscopy was performed without difficulty. The patient tolerated the procedure well. The quality of the bowel preparation was good. The ileocecal valve, appendiceal orifice, and rectum were photographed. Scope In: 11:25:04 AM Scope Withdrawal Time 0 hours 6 minutes 9 seconds Scope Out: 11:33:41 AM Total Procedure Duration Time 0 hours 8 minutes 37 seconds Findings: A polyp was found in the transverse colon. The polyp was removed with a hot snare. Resection and retrieval were complete. The exam was otherwise without abnormality on direct and retroflexion views. Impression: - One polyp in the transverse colon, removed with a hot snare. Resected and retrieved. - The examination was otherwise normal on direct and retroflexion views. Recommendation: - Discharge patient to home. - Resume previous diet. - Continue present medications. - Await pathology results. - Repeat colonoscopy in 5 years for surveillance. Procedure Code(s): --- Professional --- 36345, 33, Colonoscopy, flexible; with removal of tumor(s), polyp(s), or other lesion(s) by snare technique Diagnosis Code(s): --- Professional --- Z12.11, Encounter for screening for malignant neoplasm of colon D12.3, Benign neoplasm of transverse colon (hepatic flexure or splenic flexure) CPT copyright 2021 [employer]. All rights reserved. The codes documented in this report are preliminary and upon hydraulic hammer operator review may be revised to meet current compliance requirements. David Hernandez MD 01/20/2025 11:36:32 AM This report has been signed electronically. Number of Addenda: 0 Note Initiated On: 01/20/2025 10:40 AM
--- NOTE | 2025-01-20 11:46 | PCM.POST.ANE ---
Anesthesia: Postop Eval I Current Vital Signs Temperature: 97 F Pulse Rate: 82 Blood Pressure: 123/85 Respiratory Rate: 16 Pulse Ox: 93 Oxygen Delivery Method: Room Air Assessment Airway patent: Yes Spontaneous unlabored respirations: Yes Mental status: Awake and Calm nausea: No Vomiting: No Anesthesia Complication: No Fluid Hydration Crystalloid volume administer (ml): 400 Total IV fluid infused: 400 Progress Note Anesthesia document: Postop Eval 1 completed: Yes
== END 2025-01-20 12:25 | disposition home or self-care (01) ==
LOC: EN 10:16 → AC 10:18
PROVIDERS: PCP Internal Medicine; Referring Provider Internal Medicine; Visit Provider Surgery
PROC: 0DJD8ZZ Inspection of Lower Intestinal Tract, Via Natural or Artificial Opening Endoscopic (ICD-10-PCS; CPT 45378; principal; 2025-01-20 10:55)
DX: Z12.11 Encounter for screening for malignant neoplasm of colon (principal); E78.5 Hyperlipidemia, unspecified; Z87.891 Personal history of nicotine dependence; D12.3 Benign neoplasm of transverse colon; Z90.49 Acquired absence of other specified parts of digestive tract
CPT/HCPCS: 45385; 88305

== ENCOUNTER → 2025-02-04 | Outpatient (CLI) | payer OTHER, SELFPAY ==
--- NOTE | 2025-02-04 12:37 | RAD_ITS ---
PROCEDURE: KNEE 4 OR MORE VIEWS 02/04/2025 REASON FOR EXAM: LEFT KNEE PAIN TECHNIQUE: KNEE 4 OR MORE VIEWS Laterality: Left COMPARISON: None. FINDINGS: BONES: No acute fracture or focal osseous lesion. JOINTS: No significant joint effusion. No dislocation. The joint spaces are preserved. SOFT TISSUES: The soft tissues are unremarkable. RAD/Knee 4 or More Views IMPRESSION: No acute osseous abnormality. Reading Location: [id number]
[2025-02-04 13:17] LABS: Hematocrit 42.6 % (40-54); Hemoglobin 14.7 g/dL (13.0-16.5); Immature Granulocytes Count 0.030 X10^3/uL (0.0-0.0); Mean Corp Hgb Conc 34.5 g/dL (32-36); Mean Corpuscular Volume 87.7 fL (80-94); Mean Platelet Vol. 11.8 fl (6.2-12.0); NRBC Flagged by Analyzer 0 % (0-5); Platelet Count 221 K/mm3 (150-450); RBC Distribution Width CV 12.6 % (11.6-14.6); RBC Distribution Width SD 40.2 fl (35.1-43.9); Red Blood Count 4.86 M/mm3 (4.6-6.2); White Blood Count 7.6 K/mm3 (4.4-11.0)
[2025-02-04 14:04] LABS: AST(SGOT) 28 U/L (<=37); Alanine Aminotransfer ALT/SGPT 37 U/L (<=46); Albumin, Serum 4.3 g/dL (3.5-5.0); Alkaline Phosphatase 38 U/L (40-129); Anion Gap 11 (5-15); BUN 14 mg/dL (4-19); BUN/Creat Ratio 13.9 RATIO (10-20); Calcium,Total 9.5 mg/dL (7.6-11.0); Carbon Dioxide 28.0 mmol/L (21.0-32.0); Chloride 102 mmol/L (98-108); Cholesterol 260 mg/dL (<=200); Globulin 2.7 g/dL (2.2-4.2); Glucose 95 mg/dL (70-99); Low Density Lipoprotein Calc. 108 mg/dL; PSA,Total - Annual Screen 1.09 ng/mL (0.02-4.00); Potassium 4.5 mmol/L (3.3-5.1); Triglycerides 520 mg/dL; Very Low Density Lipoprotein 104 mg/dL (5-40); Vitamin D,25 Hydroxy 55.4 ng/mL (30-100); cholesterol:hdl ratio screen 5.45
[2025-02-04 14:14] LABS: CRP < 3.00 mg/L (0.0-3.0)
[2025-02-06 14:09] LABS: Lyme Scn Total Ab w/Rflx Negative (Negative)
== END | disposition home or self-care (01) ==
PROVIDERS: PCP Internal Medicine; Referring Provider Internal Medicine; Visit Provider Internal Medicine
DX: Z12.5 Encounter for screening for malignant neoplasm of prostate (principal); R73.01 Impaired fasting glucose; R03.0 Elevated blood-pressure reading, without diagnosis of hypertension; R79.89 Other specified abnormal findings of blood chemistry; E78.5 Hyperlipidemia, unspecified; M25.562 Pain in left knee
CPT/HCPCS: 36415; 73564; 80053; 80061; 82306; 83036; 84153; 85025; 85652; 86140; 86618; G0103

== ENCOUNTER → 2025-02-06 | Outpatient (CLI) | payer OTHER, SELFPAY ==
--- NOTE | 2025-02-06 14:37 | VDLE_ITS ---
Reason For Study Reason For Study: Pain RIGHT LEFT CFV is compressible, spontaneous, phasic, competent GSV is normal. and demonstrates normal augmentation. CFV is compressible, spontaneous, phasic, competent, Procedure and demonstrates normal augmentation. This is a venous duplex using B-mode, color flow and FV is compressible, spontaneous, phasic, competent spectral Doppler. and demonstrates normal augmentation. Exam performed in department. POP V is compressible, spontaneous, phasic, competent and demonstrates normal augmentation. T/P Trunk is compressible. PTV is compressible. LT PerV is compressible. Nonvascularized structure noted in the popliteal fossa measuring 4.31x0.87x1.90 cm. VL/Venous Duplex US, Unilateral Interpretation Summary Deep veins of the left lower extremity are patent and compressible segmentally. There is no evidence of left lower extremity deep vein thrombosis. The left great saphenous vein appears patent an d compressible segmentally. Nonvascularized structure noted in the left popliteal fossa measuring 4.31x0.87 x1.90 cm. Ordering Physician: Abigail Thompson Referring Physician: Abigail Thompson Performed By: Imani Keen and Student, RVT
== END | disposition home or self-care (01) ==
LOC: CVS 14:27
PROVIDERS: PCP Internal Medicine; Referring Provider Internal Medicine; Visit Provider Internal Medicine
DX: M25.562 Pain in left knee (principal); M79.662 Pain in left lower leg; I70.92 Chronic total occlusion of artery of the extremities
CPT/HCPCS: 93971